=== PATIENT | male | born 1945 | race Caucasian/White ===

== ENCOUNTER → 2016-05-17 | Outpatient (CLI) | payer OTHER ==
[~2016-05-17] MED LIST: CEPH500C2 PO; CYAN100T6 PO; CYAN500S5 PO; ECHI80CA PO; MULTTAB58 PO; ZINC220C4 PO
--- NOTE | 2016-05-17 12:10 | DIAGNOSTIC IMAGING REPORT ---
CHEST 2 VIEWS ROUTINE CLINICAL HISTORY: FLU LIKE SYMPTOMS cough COMPARISON STUDY: None FINDINGS: The bones soft tissues and hemidiaphragms are normal. The cardiomediastinal silhouette is normal. The lungs are clear. The pulmonary vasculature is normal. Calcified granuloma left and to lesser extent medial right base IMPRESSION: Chronic granulomatous change. No acute process. Electronically signed by: Tree Barriga M.D. 05/17/2016 12:09 PM Dictated Date/Time: 05/17/2016 12:08 PM
== END | disposition home or self-care (01) ==
LOC: C.RADPV 11:56
PROVIDERS: ATTEND Family Medicine
DX: R68.89 Other general symptoms and signs (principal); R50.9 Fever, unspecified

== ENCOUNTER 2016-11-07 19:54 | Emergency (ER) | payer OTHER ==
[~2016-11-07] VITALS: Ht 182.9 cm; Wt 92.1 kg
[~2016-11-07 19:54] MED LIST changes: -CEPH500C2 PO; -CYAN500S5 PO; -ECHI80CA PO
[2016-11-07 20:06] VITALS: TEMP 37; Ht 182.9 cm; Wt 92.1 kg
[2016-11-07] MEDS ORDERED: XYLOCAINE 1%/SOD BICARB 20 ML VIAL INFIL ONE (20:30)
--- NOTE | 2016-11-07 21:32 | DIAGNOSTIC IMAGING REPORT ---
LEFT HAND MIN 3 VIEWS ROUTINE CLINICAL HISTORY: L finger injury COMPARISON: None. DISCUSSION: There is a comminuted fracture involving the distal phalanx of the third/middle finger. There is an overlying soft tissue injury. Degenerative changes are present within the wrist. There is mild widening of the scapholunate distance. There is mild fragmentation of the proximal carpal row as visualized in the lateral projection. Degenerative changes are also present within the hand most pronounced the level of the distal interphalangeal joints. There is a small erosion involving the middle phalanx of the fifth finger. IMPRESSION: Comminuted fracture involving the mid to distal aspect of the distal phalanx the third finger. There is an overlying soft tissue injury. Electronically signed by: Taye Gutierrez M.D. 11/07/2016 9:30 PM Dictated Date/Time: 11/07/2016 9:28 PM
--- NOTE | 2016-11-07 21:44 | EMERGENCY ROOM VISIT NOTE ---
ED Visit Note First contact with patient: 20:25 I have personally seen and evaluated the patient with the physician assistant city attorney. I agree with the diagnostic/management decisions and have personally been involved in these decisions and agree with the diagnosis.
[2016-11-07] MEDS ORDERED: CEFAZOLIN IV 1,000 MG in DEXTROSE 5% 50ML 50 ML IV ONE (21:45)
[2016-11-07] MEDS ORDERED: DIPHTHERIA/TETANUS/PERTUSSIS 0.5 ML SYR/VIAL IM. ONE (22:00)
[2016-11-07] MEDS ORDERED: ECHI80CA PO (22:28)
[2016-11-07] MEDS ORDERED: CYAN500S5 PO (22:28)
--- NOTE | 2016-11-07 23:24 | Medical Consult ---
Consultation Date of Consultation: Nov 07, 2016. Attending Physician: Reason for Consultation: Left middle finger open tuft fracture. 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 Contacted by the ER to evaluate and treat his open Left Middle finger Tuft fracture. X-rays were taken, he was started on antibiotics, and given tetanus booster. He denies numbness or tingling. Past Medical/Surgical History PMHx: Rib fractures, Hernia. PSHx: Butt Cyst removal, L CTR Social History Smoking Status: Never Smoker Smokeless Tobacco Use: No Alcohol Use: none Marital Status: Housing Status: lives with family Occupation Status: employed ([employer]) Allergies Coded Allergies: Prednisone (Verified Allergy, Intermediate, Becomes agitated, 11/07/16) Review of Systems Constitutional: No fever, No chills, No sweats, No weight loss, No weakness, No fatigue, No problem reported Eyes: No worsening of vision, No eye pain, No redness, No discharge, No diplopia, No problem reported ENT: No hearing loss, No unusual epistaxis, No nasal symptoms, No sore throat, No tinnitus, No dental problems, No trouble swallowing, No problem reported Respiratory: No cough, No sputum, No wheezing, No shortness of breath, No dyspnea on exertion, No dyspnea at rest, No hemoptysis, No problem reported Cardiovascular: No chest pain, No orthopnea, No PND, No edema, No claudication , No palpitations, No problem reported Abdomen: No pain, No nausea, No vomiting, No diarrhea, No constipation, No GI bleeding, No problem reported Musculoskeletal: + problem reported (L MF injury) Genitourinary - Male: No hematuria, No dysuria, No urinary frequency, No urinary urgency, No urinary hesitancy, No urinary retention, No urinary incontinence, No penile discharge, No lesions, No impotence, No problem reported Neurologic: No memory loss, No paralysis, No weakness, No numbness/tingling, No vertigo, No balance problems, No problem reported Psychiatric: No depression symptoms, No anhedonism, No anxiety, No insomnia, No substance abuse, No problem reported Endocrine: No fatigue, No excessive thirst, No excessive urination, No problem reported Integumentary: No rash, No itch, No new/changing skin lesions, No color change , No bleeding, No problem reported Allergic / Immunologic: No environmental allergies, No seasonal allergies, No pet sensitivities, No food allergies, No hives, No frequent infections, No poor healing, No prolonged convalescence, No problem reported Physical Exam Date Time Temp Pulse Resp B/P (MAP) Pulse Ox O2 Delivery O2 Flow Rate FiO2 11/07/16 22:00 70 20 169/95 96 Room Air 11/07/16 21:01 74 18 163/139 94 Room Air 11/07/16 20:06 37.0 75 18 180/98 95 Room Air General Appearance: WD/WN, no apparent distress Extremities/Musculoskelatal: + pertinent finding (L MF: laceration of LM with near loss of the nail, hanging at the tip. BCR < 2 sec. sensation to LT intact. FDS, FDP, extension intact. Nail bed lacerationnear the nail matrix with some loss of skin and nail bed.) Laboratory Results RADIOGRAPHS: 3 views of the L hand, show a comminuted, minimally displaced L MF distal phalanx fracture. Assessment & Plan L MF comminuted, minimally displaced, open, distal phalanx fracture, initial emergency room visit. After a lengthy discussion with the patient regarding my above findings, due to the open fracture, I recommended continued antibiotics and an I&D of the L MF and repair. The risks of the procedure as well as the benefits were discussed. He wished to proceed with the procedure. He may use Tylenol alternating with Advil as needed for pain. He will ice, elevate, maintain in splint, and keep clean and dry. He will follow up in my office in 4-7 days. Call [phone] for appointment.
--- NOTE | 2016-11-07 23:29 | [facility] Operative Report ---
Operative Report Operative Date Nov 07, 2016. Pre-Operative Diagnosis Left Middle Finger Open Tuft Fracture Post-Operative Diagnosis Same + Nailbed laceration Procedure(s) Performed 1) Nail Bed repair. 2) Closed treatment L MF P3 fx. 3) Irrigataion and debridement L MF. Surgeon Skyler Bentley MD Union Representative Surgeon(s) Ozzy Olivares PA-C (No fellow avail). Estimated Blood Loss 5 Findings Minimally displaced, comminuted, open distal phalanx fracture L MF, with Nailbed laceration near the nail matrix, with loss of some of the nailbed. Drains n/a Anesthesia Digital block Complication(s) None Disposition ER D3 Indications The patient sustained a traumatic injury to the left middle finger resulting in an open tuft fracture. The patient understands the risks of procedure, which include but are not limited to: bleeding, infection, re-operation, damage to nerves and arteries, continued pain, malunion, nonunion, need for additional surgery, nailbed deformity versus out right loss. The patient understands all of these instructions and explanations, all of their questions have been satisfactorily addressed. The patient has wished to proceed with procedure. Description of Procedure With the patient remaining in the emergency room, and after performing a time- out identifying the left middle finger to undergo the procedure; the left middle finger underwent a digital block under sterile fashion with 1% lidocaine plain using 7 cc. Once this had taken appropriate affect, the hand was cleaned with Hibiclens scrub brush. The dorsal wound to the left middle finger was copiously irrigated with combination of Betadine and normal saline initially followed by over 1 L of normal saline. The nail was removed and there was a noted laceration of the nailbed with some loss of tissue. The nailbed was repaired with 4-0 chromic sutures. The small laceration over the ulnar aspect was also closed with 4-0 chromic. A false nail was placed overtop using the foil from the chromic packaging and was held in place with 2 sutures proximally and one centrally distally again using the 4-0 chromic. The hand was cleaned and dried. Xeroform was placed over top of the wound followed by 4 x 4 and 1 inch Jarred. An AlumaFoam splint was then placed over top and held in place with Coban. Postop Instructions: Patient will ice and elevate and avoid any heavy lifting as well as any dirty situations. He will follow-up in 4-7 days for reevaluation. He will continue with the Keflex for one week. He understood all my instructions and expirations all his questions were satisfactorily addressed. I attest to the content of the Intraoperative Record and any orders documented therein. Any exceptions are noted below.
[2016-11-07] MEDS ORDERED: CEPHALEXIN 500MG HOME PACK 1 EA BTL PO ONE (23:30)
[2016-11-07] MEDS ORDERED: CEPH500C2 PO (23:32)
[2016-11-07 23:39] VITALS: BP 160/87; PULSE 84; O2SAT 98
--- NOTE | 2016-11-08 03:00 | EMERGENCY ROOM VISIT NOTE ---
ED Visit Note First contact with patient: 20:25 Chief Complaint: I cut my left middle finger. History of Present Illness: Mr. Olsen is a 8-year-old white male who ambulates into the ED accompanied by his complaining of a left middle finger laceration. Patient is left-handed. Patient and report approximately 45 minutes ago he was greasing a investigative assistant when his middle finger got caught in the chain and was injured. He has not treated his injury prior to arrival at the hospital. Currently he is complaining of a throbbing and achy pain to the distal middle finger. He rates his discomfort 5/10. His pain is nonradiating. His pain worsens with palpation of the distal finger and his soft tissue injury. He has not identified any alleviating factors related to the pain. He reports she has not taken medication for pain prior to arrival at the hospital. He denies any associated symptoms including other hand pain, other finger pain, finger weakness/numbness/tingling. He also denies any previous significant injuries or surgeries to this area. Review of Systems: As noted above in history of present illness. Past Medical History: Status post carpal tunnel release and hernia repair. Current Medications: Multivitamins, zinc. Allergies to Medications: Prednisone. Social History: Patient is not employed; he lives with his and feels safe in his home environment; he denies tobacco and alcohol use. Tetanus Immunization Status: Patient was unsure but thought it was greater than 10 years. Physical Examination: Vital Signs: Date Time Temp Pulse Resp B/P (MAP) Pulse Ox O2 Delivery O2 Flow Rate FiO2 11/07/16 23:39 84 20 160/87 98 11/07/16 22:00 70 20 169/95 96 Room Air 11/07/16 21:01 74 18 163/139 94 Room Air 11/07/16 20:06 37.0 75 18 180/98 95 Room Air GENERAL: 71-year-old male in mild distress due to pain, nontoxic-appearing, afebrile and hemodynamically stable. NEUROLOGICAL: Awake, alert and oriented to person, place and time. Answering questions appropriately and following commands. SKIN: Warm, dry and pink. Left Middle Finger: 3-4 cm full-thickness laceration over the posterior aspect of the distal phalanx. Additionally the nail was partially avulsed and the skin is rotated laterally. LEFT MIDDLE FINGER: Obvious deformity of the distal phalanx. No tenderness over the MCP or PIP joints. Tenderness over the DIP joint and his lacerated area. Throughout the distal finger the skin was warm and pink and capillary refill is brisk. He was able to distinguish light sensations through all dermatomes of the finger. ED Course: Patient is assessed as noted above. Since medication list was reviewed. Left Hand X-Rays: Were read by myself and the radiologist showing a comminuted fracture involving the mid to distal aspect of the distal phalanx of the middle finger. Patient was offered pain medications and refused. IV lock was initiated and patient was given 1 g of Ancef IV and Adacel booster IM. Patient's case was reviewed with Dr. Sierra; independently assessed the patient we agreed on diagnostic approach, treatment, disposition and plan. Patient's case was consulted with Dr. Bentley, [facility]; Dr. Bentley came into the ED evaluated the patient and repaired his injuries. Please see his notes. Patient was educated about today's findings and instructed on his treatment plan ; he verbalizes understanding and agreement with this plan. Clinical Impression: Open comminuted fracture of the left distal phalanx. Disposition: Patient discharged home in stable condition; prior to departure he was reassessed and subjectively reported he was feeling much better and repeat pain pain-free. Plan: At Dr. Bentley's request I wrote his discharge instructions. Comfort measures, wound care and signs of infection were discussed with the patient. Patient was prescribed Keflex 500 mg 4 times a day for 10 days. Patient was encouraged to contact Dr. Locke's office tomorrow morning and request follow-up care and treatment for 4 days. Patient was encouraged to return to the ED for any signs of infection or any new /concerning symptoms.
== END 2016-11-07 23:40 | disposition home or self-care (01) ==
LOC: C.EDB 19:54 → C.EDD 23:40
DX: S62.633B Displaced fracture of distal phalanx of left middle finger, initial encounter for open fracture (principal); S61.313A Laceration without foreign body of left middle finger with damage to nail, initial encounter; W23.0XXA Caught, crushed, jammed, or pinched between moving objects, initial encounter; Z23 Encounter for immunization

== ENCOUNTER 2018-10-23 04:51 | Inpatient (IN) ==
--- NOTE | 2018-10-05 08:39 | Anesthesiology Consultation ---
Date of Service October 05, 2018 Assessment & Plan (1) Encounter for pre-operative examination: Cardiology 10/11/18 = "Mr. Olsen is an acceptable cardiac risk for surgery." Chart Review Chart Review: Acceptable Risk for Surgery and Patient seen in Pre Admission Testing Teaching & Discussion Instructed NPO after midnight before surgery, except medications with 15 cc of water. Medication instructions provided according to the PAT guidelines. History Surgery Operation Date: 10/23/18 10:40 Proposed Procedures p Left Total Hip Replacement - Venkata Delacruz MD Height/Weight Height: 6 ft Weight: 91.4 kg Allergies Allergy/AdvReac Type Severity Reaction Status Date / Time prednisone AdvReac Unknown Becomes Verified 09/28/18 08:33 agitated Medications Home Medications Medication Instructions Recorded Confirmed Last Taken lisinopril 20 mg tablet 20 mg PO QAM #90 tab 09/05/18 09/28/18 09/28/18 C,E,zinc,copper [id number] 1 cap PO DAILY 09/28/18 09/28/18 Unknown [Ocuvite Adult 50 Plus] cyanocobalamin (vitamin B-12) 2,500 mcg SUBLINGUAL DAILY 09/28/18 09/28/18 Unknown [Vitamin B-12] metoprolol succinate 100 mg PO UD 09/28/18 09/28/18 Unknown multivitamin 1 cap PO DAILY 09/28/18 09/28/18 Unknown Past Medical History Medical History Bradycardia Drug-induced per PCP -- metoprolol was recently increased to 100mg, but then HR was 35 at PCP office 09/26, now decreased to 50mg only to be given if HR >50. Per pt's , HR has only been over 50 once since then. HR 45 at PAT appt. Pt asymptomatic. Hypertension RECENT DX Left bundle-branch block Noted at PCP office 06/2018, prompted cardiac workup. Nonischemic cardiomyopathy Poor short term memory RECENT PROBLEM..DISCUSSED WITH PCP Systolic heart failure EF 40% on echo 07/09/18 Exercise / Class Metabolic Activity II 4-5 Yardwork/Stairs/Walk up hill (Denies CP or SOB with 1 FOS, does daily) Past Surgical History Surgical History History of back surgery Discectomy/laminectomy, pt denies hardware History of carpal tunnel surgery of left wrist History of excision of pilonidal cyst Past Anesthesia History Other "DAUGHTERS HAD HARD TIME WAKING UP FROM ANESTHESIA WITH WISDOM TEETH" RECALLS THAT WITH BACK SURGERY ([facility] 35 YRS AGO) - NURSES TOLD HER THEY HAD TO KEEP TELLING THE PATIENT TO BREATHE. UNSURE IF REINTUBATION; NO ICU. NO FURTHER DETAILS. History of PONV No Hx of PONV and No Hx of Motion Sickness Social History Smoking Status: Never smoker Do You Dip or Chew Tobacco: No Hx Alcohol Use: No Hx Substance Use: No substance use type: does not use Review of Systems Pt denies any recent chest pain, shortness of breath, palpitations, cough, fever or URI. Physical Exam Vital Signs BP: 147/74 P: 45bpm (asymptomatic) SPO2: 97% RA T: 98.1 F R: 16 ENMT Mouth: + dentures (full upper) and + chipped teeth (B/L broken last biscuspid) Thyromental Distance: > or= 3.5 Finger Breadths (4) Mallampati Class: II Missing all bottom molars Neck normal visual inspection and + facial hair (trimmed mustache); neck extension not limited Respiratory normal respiratory effort Auscultation: lungs clear to auscultation bilaterally Cardiovascular Rate/Rhythm: regular rhythm and + bradycardic Heart Sounds: no murmur Vessels: no carotid bruit Extremities: no edema Testing Laboratory Results 10/05/18 10:30 10/05/18 10:30 PT 10.4 Seconds (9.0-12.0) 10/05/18 10:30 INR 1.0 (0.9-1.1) 10/05/18 10:30 APTT 26.7 Seconds (21.0-31.0) 10/05/18 10:30 Blood Type A Positive 10/05/18 10:30 Antibody Screen NEGATIVE 10/05/18 10:30 Electrocardiogram Date: 09/26/18 Findings: + SB @ (35bpm) Left axis deviation. LBBB. *prompted cardiac workup via PCP. HR 45 at PAT, patient asymptomatic. Chest X-Ray Date: 10/05/18 FINDINGS: Stable calcified granuloma within the left lung base. No pleural effusions. No pneumothorax. The heart is normal in size. IMPRESSION: No acute process. Echocardiogram Date: 07/09/18 EF: 40% LVEF is mildly decreased. There is mild global HK of the LV. Mild mitral regurgitation. Stress Test Date: 07/26/18 Resting EF: 46% Impression: 1. Myocardial perfusion negative for ischemic changes. 2. Large fixed defect possibly secondary to LBBB artifact, but cannot exclude infarct. 3. Hypokinesis of the septal wall segments, possibly due to LBBB. 4. Mildly reduced left ventricular systolic function. EF 46%. 5. Indeterminate Lexiscan ECG.
--- NOTE | 2018-10-05 08:41 | PAT Medication Instructions ---
Medication Instructions Date of Service October 05, 2018 Home Medications lisinopril 20 mg tablet 20 mg PO QAM [Ocuvite Adult 50 Plus] 1 cap PO DAILY cyanocobalamin (vitamin B-12) 2,500 mcg SUBLINGUAL DAILY metoprolol succinate 100 mg PO UD multivitamin 1 cap PO DAILY STOP taking 2 weeks before surgery If surgery is within 2 weeks, stop taking as soon as possible. [Ocuvite Adult 50 Plus] 1 cap PO DAILY DO NOT take the morning of surgery lisinopril 20 mg tablet 20 mg PO QAM cyanocobalamin (vitamin B-12) 2,500 mcg SUBLINGUAL DAILY multivitamin 1 cap PO DAILY Take morning of surgery With a small sip of water, OTHERWISE NOTHING TO EAT OR DRINK AFTER MIDNIGHT: metoprolol succinate 100 mg PO UD (if HR over 50bpm) Other Notes If you have any questions please call us at [phone] or [phone] or [phone] or [phone]
--- NOTE | 2018-10-05 11:14 | XRay Report ---
XR chest Pre-admission PA/Lat HISTORY: Preop. COMPARISON: Chest 05/17/2016. FINDINGS: Stable calcified granuloma within the left lung base. No pleural effusions. No pneumothorax . The heart is normal in size. IMPRESSION: No acute process. Electronically signed by: Yury Owen M.D. 10/05/2018 11:12 AM
[2018-10-05 13:06] LABS: Calcium 9.4 mg/dl (8.5-10.1); Creatinine Clr Calc Pharmacy 77.1 ml/min; Est GFR (African American) 92.3; Est GFR (Non-African American) 79.7; Potassium 4.9 mmol/L (3.5-5.1)
[2018-10-05 13:12] LABS: Basophils # (auto) 0.02 K/uL (0-0.2); Basophils % (auto) 0.2 %; Eosinophils # (auto) 0.36 K/uL (0-0.5); Eosinophils % (auto) 4.3 %; Hematocrit (blood only) 44.2 % (42-52); Hemoglobin 15.3 g/dL (14.0-18.0); Immature Granulocytes # (auto) 0.01 K/uL (0.00-0.02); Immature Granulocytes % (auto) 0.1 %; Lymphocytes # (auto) 2.25 K/uL (1.2-3.4); Lymphocytes % (auto) 26.7 %; Mean Corpuscular Hgb Conc 34.6 g/dL (32-36); Mean Corpuscular Volume 87.9 fL (80-100); Mean Platelet Volume 11.1 fL (7.4-10.4); Monocytes # (auto) 0.88 K/uL (0.11-0.59); Monocytes % (auto) 10.4 %; Neutrophils # (auto) 4.91 K/uL (1.4-6.5); Neutrophils % (auto) 58.3 %; Platelet Count 206 K/uL (130-400); RDW Coefficient of Variation 12.7 % (11.5-14.5); RDW Standard Deviation 40.3 fL (36.4-46.3); Red Blood Count 5.03 M/uL (4.7-6.1); White Blood Count 8.43 K/uL (4.8-10.8)
[2018-10-05 13:22] LABS: Partial Thromboplastin Time 26.7 Seconds (21.0-31.0); Prothrombin Time 10.4 Seconds (9.0-12.0)
--- NOTE | 2018-10-13 12:24 | History and Physical Report ---
DATE OF ADMISSION: 10/23/2018 CHIEF COMPLAINT: Left hip pain. HISTORY OF PRESENT ILLNESS: This is a 73-year-old male morillo who presents for surgical treatment from my partner Dr. Baez. He has about a year and half history of increasing left hip pain and discomfort. It has gradually gotten worse over time. He used to be pretty active, but has become much less active over the past year due to his hip pain. He describes groin and thigh pain. It radiates down to his knee, but no further. No numbness or radicular symptoms. He limps pretty much all the time and more as the day goes on. He would like to proceed with surgical treatment. He has had some recent issues with memory loss. PAST MEDICAL HISTORY: 1. Short term memory loss. 2. Hypertension. 3. Left bundle branch block. PAST SURGICAL HISTORY: Previous surgeries include: 1. Back surgery. 2. Carpal tunnel release. 3. Pilonidal cyst removal. ALLERGIES: PENTOTHAL. CURRENT MEDICINES: Includes: 1. Lisinopril 20 mg a day. 2. Metoprolol once a day. 3. Vitamin B12. 4. Multivitamin. 5. I-vitamin. SOCIAL HISTORY: A 73-year-old male. He is . Morillo by nature. No significant alcohol or tobacco use. REVIEW OF SYSTEMS: Negative for diabetes, neurologic problems, vascular problems, bleeding disorders. No chest pain or shortness of breath. No history of DVT or PE. PHYSICAL EXAMINATION: GENERAL: He is a pleasant, healthy appearing elderly male. HEENT: Benign. NECK: Supple. No lymphadenopathy. LUNGS: Clear to auscultation. HEART: Regular rate and rhythm. ABDOMEN: Soft, nontender, nondistended. EXTREMITIES: Grossly neurovascularly intact except as follows. Examination of left hip and leg reveals the patient walks with minimal limp. Leg lengths clinically appear pretty equal. His hip is quite stiff. He can internally rotate to neutral at best. This does cause pain. Negative straight leg raise. No pain with knee motion. X-RAYS: X-rays of the left hip reviewed. It shows advanced left hip DJD. He has got complete loss of his joint space. He has cystic change of the femoral head and acetabulum. The right hip shows less severe significant arthritis. ASSESSMENT: A 73-year-old male morillo with bilateral hip degenerative joint disease, left side more symptomatic than the right. He does have some recent memory loss issues, but trying to manage this. He is markedly debilitated by his hip pain. PLAN: We talked about treatment. He really would like to have his left hip fixed. The risks and benefits of left total hip replacement were explained to the patient including but not limited to DVT, PE, , infection, neurological injury, vascular injury, bleeding problem, pain, limited range of motion, stiffness, failure to relieve symptoms, incomplete relief of symptoms, need for further surgery in future, fracture, leg length inequality, nerve palsy, etc. The patient understands and desires to proceed. Informed consent was obtained. We did talk to him about taking his metoprolol on the morning of surgery and holding lisinopril. There has been some discussion whether to go to rehab or to home and I think it would be best if he can go home as long as they can manage him in a familiar environment. We will see how he does in the acute postoperative period in the hospital.
[2018-10-23] MEDS ORDERED: TRANEXAMIC ACID 1,000 MG **IV Pre-op IV SCH (06:00)
[2018-10-23] MEDS ORDERED: LR 60ML/HR IV SCH (06:00)
[2018-10-23] MEDS ORDERED: ACETAMINOPHEN 500 MG TAB PO SCH (06:00)
[2018-10-23] MEDS ORDERED: FAMOTIDINE 20 MG TAB PO SCH (06:00)
[2018-10-23] MEDS ORDERED: CEFAZOLIN 2000MG 2,000 MG/15 ML SYR IV SCH (06:00)
[2018-10-23] MEDS ORDERED: LR 500ML BOLUS, THEN 15ML/HR IV SCH (06:00)
[2018-10-23] MEDS ORDERED: GABAPENTIN 300 MG CAP PO SCH (06:00)
[2018-10-23] MEDS ORDERED: METOCLOPRAMIDE HCL 10 MG TABLET PO SCH (06:00)
[2018-10-23] MEDS ORDERED: BUPIVACAINE 0.5 % 5 MG/1 ML PF 10ML VIAL ONE (06:26)
[2018-10-23] MEDS ORDERED: BUPIVACAINE/EPINEPHRINE 0.5% MPF 1:200,000 30 ML VIAL ONE (06:29)
[2018-10-23] MEDS ORDERED: BACITRACIN INJ 50,000 UNIT VIAL ONE (06:29)
[2018-10-23] MEDS ORDERED: MIDAZOLAM HCL 1 MG/ML 2ML VIAL ONE ×2 (06:30→07:41)
[2018-10-23] MEDS ORDERED: fentaNYL citrate 100 MCG/2 ML VIAL ONE (06:30)
[2018-10-23] MEDS ORDERED: MoRPHine SULFATE PF 1 MG/ML 10 ML AMP/VIAL ONE (06:39)
[2018-10-23] MEDS ORDERED: ePHEDrine sulfate 50 MG/ML AMP IV PRN ×2 (06:46→06:55)
[2018-10-23] MEDS ORDERED: fentaNYL citrate 100 MCG/2 ML VIAL IV PRN (06:46)
[2018-10-23] MEDS ORDERED: ATROPINE SULFATE 0.1 MG/ML 10ML SYR IV PRN (06:46)
[2018-10-23] MEDS ORDERED: ONDANSETRON INJ 2 MG/ML 2 ML VIAL IV PRN ×3 (06:46→10:18)
--- NOTE | 2018-10-23 06:48 | History & Physical Bridge Note ---
Date of Service October 23, 2018 History & Physical Bridge Note I have examined the patient, reviewed the History & Physical and in the interval since the performance of the History & Physical I have noted the following changes of clinical significance: no changes noted
[2018-10-23] MEDS ORDERED: NALOXONE HCL 0.08 MG in SYRINGE 1.8 ML IV PRN (06:55)
[2018-10-23] MEDS ORDERED: NALBUPHINE HCL INJ 10 MG/ML AMP IV PRN (06:55)
[2018-10-23] MEDS ORDERED: NALOXONE HCL 0.4 MG/1 ML VIAL/CARP IV PRN ×2 (06:55→10:18)
[2018-10-23] MEDS ORDERED: LACTATED RINGER'S 500 ML IV PRN (06:55)
[2018-10-23] MEDS ORDERED: NALOXONE HCL 1 MG in SODIUM CHLORIDE 0.9% 1000ML 1,000 ML IV PRN (06:55)
[2018-10-23] MEDS ORDERED: KETOROLAC TROMETHAMINE 15 MG/ML VIAL IV PRN (06:55)
[2018-10-23] MEDS ORDERED: MoRPHine SULFATE PF 1 MG/ML 10 ML AMP/VIAL INT SPINAL ONE (06:55)
[2018-10-23] MEDS ORDERED: PROMETHAZINE HCL 6.25 MG in SODIUM CHLORIDE 0.9% 50 ML IV PRN (06:55)
[2018-10-23] MEDS ORDERED: MEPERIDINE HCL 25 MG/ML CARP IV PRN (06:55)
[2018-10-23] MEDS ORDERED: MoRPHine SULFATE 2 MG/ML CARP IV PRN (06:55)
[2018-10-23] MEDS ORDERED: DiphenhydrAMINE HCL 50 MG/ML VIAL IV PRN (06:55)
[2018-10-23] MEDS ORDERED: HYDROmorphone INJ 0.5 MG/0.5 ML SYR IV PRN (06:55)
[2018-10-23] MEDS ORDERED: DC INTRASPINAL MORPHINE SCH (07:00)
[2018-10-23] MEDS ORDERED: NO NARCOTICS OR SEDATIVES SCH (07:00)
[2018-10-23] MEDS ORDERED: SODIUM CHLORIDE 0.9% 1000ML 1,000 ML IV SCH (07:00)
[2018-10-23] MEDS ORDERED: ePHEDrine sulfate 50 MG/ML AMP ONE (07:15)
--- NOTE | 2018-10-23 08:44 | Post Operative Brief Note ---
Immediate Post Op Note v1 Date of Surgery October 23, 2018 Pre & Post Diagnosis Operation Date: 10/23/18 07:00 Pre-Op Diagnosis: Left Hip Degenerative Joint Disease Post-Op Diagnosis: Left Hip Degenerative Joint Disease Procedure Operation Date: 10/23/18 07:00 Actual Procedures p Left Total Hip Arthroplasty, Uncemented(Left) - Venkata Delacruz MD Surgeon Venkata Delacruz MD Customs Manager Hal Love, PAC Estimated Blood Loss 200 Findings Consistent with Post-Op Diagnosis Fluids 600 cc Specimens Left Femoral Head Anesthesia Type Spinal MAC Complications none Disposition Accompanied Patient To Recovery: Yes Disposition: Recovery Room
--- NOTE | 2018-10-23 09:30 | Operative Report ---
DATE OF OPERATION: 10/23/2018 SURGEON: Venkata Delacruz MD RESPIRATORY THERAPY ASSISTANT: Alok Love PA-C PREOPERATIVE DIAGNOSIS: Left hip degenerative joint disease. POSTOPERATIVE DIAGNOSIS: Left hip degenerative joint disease. PROCEDURE PERFORMED: Left uncemented ceramic on highly cross-linked polyethylene total hip arthroplasty. COMPLICATIONS: None. ESTIMATED BLOOD LOSS: 200 mL. FLUID REPLACEMENT: 1600 mL of crystalloid fluid replacement. ANESTHESIA: Spinal. DRAINS: None. SPECIMENS: Left femoral head sent for pathology. OPERATIVE INDICATIONS: The patient is a 73-year-old gibbs who has had about a year and half history of progressively increasing left hip pain and discomfort that has gotten more debilitating over time. He failed conservative care. X-rays revealed advanced left hip DJD. He elected to proceed with total hip arthroplasty. OPERATIVE FINDINGS: Operative findings revealed advanced left hip DJD. He had grade 4 [id number] disease of the femoral head and acetabulum. Moderate size joint effusion. Moderate size medial osteophyte. OPERATIVE IMPLANTS: Operative implants consisted of: 1. A Biomet G7 size 58-mm acetabular shell. 2. 6.5 cancellous acetabular screws, 1 at 35 mm in length and 1 at 25 mm in length. 3. An apex hole eliminator. 4. A highly cross-linked polyethylene liner with a 58 mm outer diameter and 40 mm inner diameter with dyson placed inferior and posterior. 5. A DePuy Corail size 11 KLA femoral stem. 6. A +8.5/36 mm ceramic articular ball. OPERATIVE PROCEDURE: The patient was taken to the operating room, identified and placed on the operating table in supine position. All contact areas were appropriately padded. IV antibiotics provided by anesthesia team. Spinal anesthetic had been implemented in the holding area. Benoit catheter was placed in sterile fashion. The patient was then placed in the right lateral decubitus position. An axillary roll was placed. Stlberg hip positioner was used for positioning. The left hip and leg were then prepped and draped in the usual sterile fashion. A posterolateral approach to the left hip was then performed through a curvilinear incision centered over the greater trochanter. Sharp dissection was carried through subcutaneous tissue down to the level of the IT band and gluteal fascia. The IT band and gluteal fascia was incised longitudinally in line with skin incision. The underlying greater trochanteric bursa was excised. The piriformis and external rotators were tagged and taken off the posterior aspect of the hip joint capsule. Great care was taken throughout the procedure to protect the sciatic nerve at all times. Posterior capsulotomy was then performed leaving a large flap for later repair. The hip was internally rotated and dislocated. Femoral neck osteotomy cut was made with the final cut about 5 mm above the lesser trochanter. Femoral head was removed and sent for pathology. The femur was retracted anteriorly. Attention was then drawn to the acetabulum. The acetabulum labrum was excised. The pulvinar fat was excised. Sequential reaming of the acetabulum was then performed beginning with a size 49 progressing up to 57. I did ream a little bit with a 58 due to his ulnar bone. I then placed a 58 mm Biomet G7 acetabular shell in about 40 degrees of lateral opening and 20 degrees of anteversion. It was fixed with two 6.5 cancellous acetabular screws. A trial liner was placed. Attention was then drawn to the femur. The proximal femur was entered with a cookie cutter followed by canal finder. I then broached beginning with a size 8 and progressing up to 11. We got really good fit at 11. We used a calcar reamer to smooth off the calcar. I then trialed the hip. The hip was fully stable, but I really wanted to maximize his stability due to issues with recent short term memory loss. We eventually placed a +8.5/48 mm head to maximize stability and also placed a dyson inferior and posterior to maximize his stability in flexion. Doing this, we had equal leg lengths and appropriate soft tissue tension. His hip was fully stable in full extension and external rotation and flexion to 90 degrees and internal rotation to over [address] I elected to place these implants. All trial implants were removed. An apex hole eliminator was placed. A highly cross-linked polyethylene liner with dyson placed inferior and posterior were placed. A DePuy Corail size 11 KLA femoral stem was impacted in position. A +8.5/36 mm ceramic articular ball was placed. Hip was located, once again found to be stable. Attention was then drawn toward closing. The wound was irrigated with copious amounts of pulsatile lavage solution. I did inject locally with 60 mL of 0.5% Marcaine with epinephrine. The posterior capsule and external rotators were then repaired through drill holes in the posterior trochanter with #2 Ti-Cron suture. The IT band and gluteal fascia were then closed with #1 PDS suture in running fashion. Subcutaneous tissue was then closed with #2 Dexon suture in a buried interrupted fashion. Skin was then closed with skin brandon. Leg was then cleaned, dried and a sterile dressing of Xeroform, 4 x 4, sterile ABD pad and foam tape was applied. The patient was then transferred to the recovery room in stable condition. The patient tolerated the procedure well with no complication. All needle and sponge counts were correct at the end of the operation. I attest to the content of the Intraoperative Record and any orders documented therein. Any exception s are noted below.
--- NOTE | 2018-10-23 09:31 | XRay Report ---
XR hip 1V LT w pelvis HISTORY: 73 years-old Male IN PACU - A/P PELVIS and LATERAL HIP left hip total joint arthroplasty. History of degenerative joint disease COMPARISON: Left hip radiographs 10/11/2018 TECHNIQUE: Supine AP view of the pelvis with crosstable lateral view of the left hip FINDINGS: Left hip total joint arthroplasty demonstrates satisfactory alignment. No retained foreign body, acut e fracture or malalignment identified. Lateral skin brandon are noted with expected postsurgical soft tissue swelling and deep tissue air. Moderate to severe right hip osteoarthritis. No avascular necro sis. IMPRESSION: Satisfactory alignment of the left hip total joint arthroplasty. The above report was generated using voice recognition software. It may contain grammatical, syntax o r spelling errors. Electronically signed by: Mika Modi M.D. 10/23/2018 9:29 AM
--- NOTE | 2018-10-23 10:01 | Anesthesiology Progress Note ---
Date of Service October 23, 2018 Anesthesia Post Procedure Vital Signs Vital Signs: Temp Pulse Pulse Resp BP Pulse Ox 10/23/18 09:40 36.9 C 45 L 16 143/75 H 97 10/23/18 09:30 36.9 C 46 L 17 140/74 98 10/23/18 09:20 36.4 C L 48 L 14 135/67 97 10/23/18 09:10 36.4 C L 48 L 14 135/67 97 10/23/18 09:00 36.4 C L 53 L 13 137/75 91 10/23/18 08:50 36.4 C L 52 L 17 130/83 94 10/23/18 08:44 36.4 C L 52 L 14 138/79 97 10/23/18 05:31 37 C 56 L 20 179/99 H 97 Transfer of Care Handoff Completed per policy Notes Mental Status: alert / awake / arousable Patient Amnestic to Procedure: Yes Nausea / Vomiting: adequately controlled Pain: adequately controlled Airway Patency, RR, SpO2: stable & adequate BP & HR: stable & adequate Hydration State: stable & adequate Neuraxial Anesthesia: was administered and sensory block is resolving Anesthetic Complications: no major complications apparent
[2018-10-23] MEDS ORDERED: MULTIVITAMIN TAB PO SCH (10:18)
[2018-10-23] MEDS ORDERED: TAMSULOSIN HCL 0.4 MG CAP PO PRN (10:18)
[2018-10-23] MEDS ORDERED: ALUMINUM/MAGNESIUM SUSP 30 ML UDC PO PRN (10:18)
[2018-10-23] MEDS ORDERED: METOCLOPRAMIDE HCL INJ 5 MG/ML 2 ML VIAL IV PRN (10:18)
[2018-10-23] MEDS ORDERED: MAGNESIUM HYDROXIDE SUSP 30 ML UDC PO PRN (10:18)
[2018-10-23] MEDS ORDERED: NON-FORMULARY MEDICATION (Multivitamin 1 CAP) PO SCH (10:18)
[2018-10-23] MEDS ORDERED: BISACODYL 10 MG SUPP PR PRN (10:18)
[2018-10-23] MEDS: DOCUSATE SODIUM 100 MG CAP PO SCH ×2 (11:53→21:22)
[2018-10-23] MEDS: ASPIRIN 81 MG ECTAB PO SCH ×2 (11:53→21:22)
[2018-10-23] MEDS: CYANOCOBALAMIN (VITAMIN B-12) 2,500 MCG TAB.SUBL SL SCH (11:54)
[2018-10-23] MEDS: LISINOPRIL 20 MG TAB PO SCH (11:54)
[2018-10-23] MEDS: KETOROLAC TROMETHAMINE 15 MG/ML VIAL IV SCH ×3 (12:18→23:35)
[2018-10-23] MEDS: SODIUM CHLORIDE 0.9% 1000ML 1,000 ML IV SCH ×2 (12:18→21:32)
[2018-10-23] MEDS: ACETAMINOPHEN 500 MG TAB PO SCH ×2 (13:37→21:22)
[2018-10-23] MEDS ORDERED: TRANEXAMIC ACID 1,000 MG in 0.9 % SODIUM CHLORIDE 100 ML IV SCH (14:30)
[2018-10-23] MEDS: CEFAZOLIN 2000MG 2,000 MG/15 ML SYR IV SCH ×2 (15:56→23:35)
[2018-10-23] MEDS: ASCORBIC ACID 500 MG TAB PO SCH (17:49)
[2018-10-23] MEDS: FERROUS GLUCONATE 324 MG TAB PO SCH (17:49)
[2018-10-23] MEDS: SENNA 8.6 MG TAB PO SCH (21:22)
--- NOTE | 2018-10-24 04:24 | Progress Note ---
DATE: 10/23/2018 SUBJECTIVE: A 73-year-old gentleman postop from a left hip replacement. He is doing well. Minimal pain. No chest pain or shortness of breath. Not feeling dizzy or lightheaded. Just feeling nauseated and having trouble holding food down currently. OBJECTIVE: VITAL SIGNS: Temperature is 36.7. Vital signs stable. PHYSICAL EXAMINATION: GENERAL: Shows a pleasant elderly male. He is sitting up in bed and talking to his family. Looks comfortable. LUNGS: Clear to auscultation. HEART: Regular rate and rhythm. ABDOMEN: Soft, nontender, nondistended. EXTREMITIES: Grossly neurovascularly intact except as follows: Examination of the left lower extremity reveals leg lengths to be equal. Dressing is clean, dry and intact. Thigh is soft and supple. He is neurologically intact. He can dorsiflex and plantarflex his foot appropriately. X-RAYS: X-rays of the left hip from recovery room reviewed. It shows left uncemented total hip replacement. Components looked to be in good position. No signs of problems. ASSESSMENT: A 73-year-old gibbs postop from a left hip replacement, doing well. His hip is located. His pain is controlled. He is neurologically intact. PLAN: 1. DVT prophylaxis including thigh-high TEDs, SCDs, and aspirin twice a day. 2. PT/OT. Weight bear as tolerated. Left total hip protocol. 3. Pain control, doing well with current pain regimen. 4. IV antibiotics x24 hours. 5. Disposition: He is planning to be discharged hopefully to home with some home health depending on how he does in therapy here.
[2018-10-24] MEDS: ACETAMINOPHEN 500 MG TAB PO SCH ×3 (05:00→21:24)
[2018-10-24] MEDS: KETOROLAC TROMETHAMINE 15 MG/ML VIAL IV SCH ×4 (05:01→23:53)
[2018-10-24 06:39] LABS: Basophils # (auto) 0.01 K/uL (0-0.2); Basophils % (auto) 0.1 %; Eosinophils # (auto) 0.06 K/uL (0-0.5); Eosinophils % (auto) 0.6 %; Hematocrit (blood only) 34.2 % (42-52); Hemoglobin 11.7 g/dL (14.0-18.0); Immature Granulocytes # (auto) 0.03 K/uL (0.00-0.02); Immature Granulocytes % (auto) 0.3 %; Lymphocytes # (auto) 1.18 K/uL (1.2-3.4); Lymphocytes % (auto) 11.7 %; Mean Corpuscular Hgb Conc 34.2 g/dL (32-36); Mean Corpuscular Volume 87.5 fL (80-100); Mean Platelet Volume 10.6 fL (7.4-10.4); Monocytes # (auto) 1.16 K/uL (0.11-0.59); Monocytes % (auto) 11.5 %; Neutrophils # (auto) 7.68 K/uL (1.4-6.5); Neutrophils % (auto) 75.8 %; Platelet Count 169 K/uL (130-400); RDW Coefficient of Variation 12.5 % (11.5-14.5); RDW Standard Deviation 40.1 fL (36.4-46.3); Red Blood Count 3.91 M/uL (4.7-6.1); White Blood Count 10.12 K/uL (4.8-10.8)
[2018-10-24] MEDS ORDERED: HYDROmorphone INJ 0.5 MG/0.5 ML SYR IV PRN (07:00)
[2018-10-24 07:09] LABS: BUN Creatinine Ratio 13.8 (10-20); Calcium 8.1 mg/dl (8.5-10.1); Creatinine Clr Calc Pharmacy 80.5 ml/min; Est GFR (African American) 97.2; Est GFR (Non-African American) 83.9; Potassium 3.9 mmol/L (3.5-5.1)
[2018-10-24] MEDS: TRAMADOL HCL 50 MG TABLET PO PRN (07:41)
[2018-10-24] MEDS: ASCORBIC ACID 500 MG TAB PO SCH ×2 (08:26→17:53)
[2018-10-24] MEDS: FERROUS GLUCONATE 324 MG TAB PO SCH ×2 (08:26→17:53)
[2018-10-24] MEDS: CYANOCOBALAMIN (VITAMIN B-12) 2,500 MCG TAB.SUBL SL SCH (08:27)
[2018-10-24] MEDS: ASPIRIN 81 MG ECTAB PO SCH ×2 (08:27→21:23)
[2018-10-24] MEDS: LISINOPRIL 20 MG TAB PO SCH (08:27)
[2018-10-24] MEDS: CEROVITE ADV FORMULA TAB PO SCH (08:27)
[2018-10-24] MEDS: DOCUSATE SODIUM 100 MG CAP PO SCH ×2 (08:27→21:23)
--- NOTE | 2018-10-24 18:14 | Progress Note ---
DATE: 10/24/2018 SUBJECTIVE: A 73-year-old gentleman postop day 1 from a left total hip replacement. Hip has done well. He had pretty rough night as he was a bit confused and then developed carpal tunnel symptoms which were most bothersome. Did not really respond to pain medicine. Doing better today but still a little bit confused. Does not complain of much hip pain. No chest pain or shortness of breath. Not feeling dizzy or lightheaded. OBJECTIVE: VITAL SIGNS: Temperature 37.1. Vital signs stable. PHYSICAL EXAMINATION: GENERAL: He is a pleasant elderly male. He is sitting up in bed. He is talking to his family. He is awake, alert, but still a little bit confused. EXTREMITIES: Examination of the left hip and leg reveals the dressing to be clean, dry and intact. Leg lengths are equal. Hip is located. He is neurologically intact. He can dorsiflex and plantarflex his foot appropriately. LABORATORY DATA: Hemoglobin 11.7. Hematocrit 34.2. Electrolytes are stable. ASSESSMENT: A 73-year-old gentleman with a history of some memory loss postop day 1 from left total hip replacement, doing okay. He is having some confusion which is not too surprising. His pain is controlled. It also pretty common to develop carpal tunnel syndrome after surgery when it is borderline beforehand. PLAN: 1. DVT prophylaxis including thigh-high TEDs, SCDs, and aspirin twice a day. 2. PT/OT. Weight bear as tolerated. Left total hip protocol. 3. Pain control, doing pretty well with current pain regimen. We will continue the Tylenol and Toradol. 4. Carpal tunnel syndrome. We will continue to observe this and I think this will resolve as he diureses some fluid off. 5. Disposition. I really think it would be best for this patient to be discharged home if he is doing okay and I think his familiar environment and his 's company would be most appropriate. We will see how he does overnight tonight and with therapy tomorrow.
[2018-10-24] MEDS: SENNA 8.6 MG TAB PO SCH (21:23)
[2018-10-25] MEDS: TRAMADOL HCL 50 MG TABLET PO PRN ×3 (03:30→22:03)
[2018-10-25] MEDS: ACETAMINOPHEN 500 MG TAB PO SCH ×3 (05:37→20:54)
[2018-10-25] MEDS: KETOROLAC TROMETHAMINE 15 MG/ML VIAL IV SCH (05:37)
--- NOTE | 2018-10-25 09:36 | Progress Note ---
DATE: 10/25/2018 SUBJECTIVE: A 73-year-old gentleman postop day 2 from a left hip replacement. He is doing pretty well functionally. Still having issues with some confusion, did not sleep much last night. No chest pain or shortness of breath. Not complaining of any significant hip pain. OBJECTIVE: VITAL SIGNS: Temperature 37.1. Vital signs stable. GENERAL: Physical examination shows a pleasant elderly male. He is sitting up in his bedside chair and looks pretty comfortable. He is awake, alert and pretty appropriate this morning. EXTREMITIES: Examination of the left hip reveals the dressing to be clean, dry and intact. Hip is located. Leg lengths are equal. He is neurologically intact. ASSESSMENT: A 73-year-old gentleman postop day 2 from a left hip replacement, doing pretty well except for confusion issues. This is a fairly classic sundowning. No signs of other metabolic disturbance. PLAN: I had a long discussion with the patient and family today. We talked about discharge. We are going to see how he does today. I think the best thing for this gentleman would be to go home in a familiar environment. I emphasized the importance of keeping him up during the day and sleeping at night and avoiding pain medicines. Will continue DVT prophylaxis including TEDs, SCDs, and aspirin. Limit pain medicine to Tylenol as much as possible. We will see how things go throughout the day as far as discharge.
[2018-10-25] MEDS: LISINOPRIL 20 MG TAB PO SCH (11:59)
[2018-10-25] MEDS: FERROUS GLUCONATE 324 MG TAB PO SCH ×2 (11:59→18:26)
[2018-10-25] MEDS: ASCORBIC ACID 500 MG TAB PO SCH ×2 (11:59→18:26)
[2018-10-25] MEDS: CEROVITE ADV FORMULA TAB PO SCH (11:59)
[2018-10-25] MEDS: METOPROLOL SUCC 50MG EXT REL TAB PO SCH (12:00)
[2018-10-25] MEDS: CYANOCOBALAMIN (VITAMIN B-12) 2,500 MCG TAB.SUBL SL SCH (12:00)
[2018-10-25] MEDS: DOCUSATE SODIUM 100 MG CAP PO SCH ×2 (12:00→20:52)
[2018-10-25] MEDS: ASPIRIN 81 MG ECTAB PO SCH ×2 (12:00→20:55)
[2018-10-25] MEDS: SENNA 8.6 MG TAB PO SCH (20:54)
[2018-10-26] MEDS: TRAMADOL HCL 50 MG TABLET PO PRN (04:37)
[2018-10-26] MEDS: ACETAMINOPHEN 500 MG TAB PO SCH (05:03)
[2018-10-26] MEDS: FERROUS GLUCONATE 324 MG TAB PO SCH (08:27)
[2018-10-26] MEDS: DOCUSATE SODIUM 100 MG CAP PO SCH (08:27)
[2018-10-26] MEDS: LISINOPRIL 20 MG TAB PO SCH (08:28)
[2018-10-26] MEDS: CYANOCOBALAMIN (VITAMIN B-12) 2,500 MCG TAB.SUBL SL SCH (08:28)
[2018-10-26] MEDS: ASPIRIN 81 MG ECTAB PO SCH (08:28)
[2018-10-26] MEDS: CEROVITE ADV FORMULA TAB PO SCH (08:28)
[2018-10-26] MEDS: METOPROLOL SUCC 50MG EXT REL TAB PO SCH (08:28)
[2018-10-26] MEDS: ASCORBIC ACID 500 MG TAB PO SCH (08:29)
--- NOTE | 2018-10-26 11:19 | Progress Note ---
DATE: 10/26/2018 SUBJECTIVE: A 73-year-old gentleman postop day 3 from a left hip replacement. He is doing better. Pain seems to be controlled. He was a little less confused last evening. No chest pain or shortness of breath. OBJECTIVE: VITAL SIGNS: Temperature 37.0. Vital signs stable. PHYSICAL EXAMINATION: GENERAL: Reveals a healthy pleasant elderly male. He is sitting up in his bedside and looks reasonably comfortable. EXTREMITIES: Examination of the left hip reveals the dressing to be clean, dry and intact. Leg lengths are equal. He does have some mild to moderate swelling of his leg. He is neurologically intact. ASSESSMENT: A 73-year-old male postop day 3 from a left hip replacement, doing better. Less confusion issues. He does have some short-term memory issues exacerbated by his stay in the hospital. Seems to be getting better. Pain seems to be controlled. He does have some swelling, but some of this is probably related to his pounding on his thigh after surgery the first night. PLAN: 1. DVT prophylaxis including thigh-high TEDs, SCDs, and aspirin twice a day. 2. PT/OT. Weight bear as tolerated. Left total hip protocol. 3. Pain control. We are going to stick to Tylenol as much as possible to avoid the side effects of narcotics and confusion. 4. Disposition: He is planning to be discharged home with some home health likely later today if does okay in therapy.
--- NOTE | 2018-11-03 19:05 | Discharge Summary ---
ADMITTING PHYSICIAN AND SURGEON: Dr. Venkata Delacruz. ADMITTING DIAGNOSIS: Left hip degenerative joint disease. SURGERY PERFORMED: Left total hip arthroplasty. CONSULTS: None were obtained. History and physical examination are well documented within the patient's chart. HOSPITAL COURSE: The patient was admitted to [facility] on 10/23/2018 and underwent a left total hip arthroplasty. He tolerated the procedure well and there were no complications. He was transferred to PACU postoperatively. He was later transferred to the orthopedic floor for further care. He was given Ancef for antibiotic prophylaxis, ROSAURA stockings, SCDs, as well as aspirin for DVT prophylaxis. Hemoglobin, hematocrit and vital signs were monitored during his hospital stay and remained stable. He did not require any blood transfusions. By postop day #3, he was tolerating a regular diet, pain was well controlled with oral pain medication. He was participating in both physical therapy and occupational therapy. On postop day #3, he was discharged home and set up with home health services. He was given printed discharge instructions and specific instructions to continue total hip precautions. He can weightbear as tolerated. He was given prescriptions for Tylenol and tramadol. Continue the use of ROSAURA hose stockings as well as aspirin for DVT prophylaxis. Follow up in approximately 2 weeks postop or sooner if there are any problems or concerns.
== END 2018-10-26 13:08 | disposition home health service (06) | DRG 470 ==
LOC: ASU 04:51 → 3E 08:47

== ENCOUNTER 2019-01-23 10:30 | Observation (INO) ==
--- NOTE | 2019-01-18 10:19 | Anesthesiology Consultation ---
Date of Service January 18, 2019 Assessment & Plan Chart Review Chart Review: Acceptable Risk for Surgery and Patient NOT seen in Pre Admission Testing Consults Requested none History Surgery Operation Date: 01/23/19 13:15 Proposed Procedures p Open Right Inguinal Hernia Repair - Tony Brumfiedl MD, FACS Height/Weight Height: 6 ft Weight: 98.43 kg Allergies Allergy/AdvReac Type Severity Reaction Status Date / Time prednisone Allergy Intermediate Becomes Verified 01/18/19 08:14 agitated tramadol Allergy Intermediate hallucianti Verified 01/18/19 08:14 ons Medications Home Medications Medication Instructions Recorded Confirmed Last Taken lisinopril 20 mg tablet 20 mg PO QAM #90 tab 09/05/18 01/18/19 10/22/18 08:00 Ocuvite Adult 50 Plus 1 cap PO DAILY 09/28/18 01/18/19 10/22/18 08:00 cyanocobalamin (vitamin B-12) 2,500 mcg SUBLINGUAL QAM 09/28/18 01/18/19 10/22/18 08:00 [Vitamin B-12] multivitamin 1 cap PO QAM 09/28/18 01/18/19 10/22/18 08:00 metoprolol succinate 50 mg PO DAILY 01/18/19 01/18/19 Unknown Past Medical History Medical History Arthritis Bradycardia Drug-induced per PCP -- metoprolol was recently increased to 100mg, but then HR was 35 at PCP office 09/26, now decreased to 50mg only to be given if HR >50. Per pt's , HR has only been over 50 once since then. HR 45 at PAT appt. Pt asymptomatic. History of bronchitis Hypertension RECENT DX Left bundle-branch block Noted at PCP office 06/2018, prompted cardiac workup. Nonischemic cardiomyopathy Poor short term memory RECENT PROBLEM..DISCUSSED WITH PCP Systolic heart failure EF 40% on echo 07/09/18 Past Family History Family History Mother Hypertension Father Heart disease Brother Heart disease Other Dementia Past Surgical History Surgical History H/O circumcision Age 11 History of anesthesia reaction FOR CTR SURGERY, BLOCK WOULD NOT WORK>REQUIRED GENERAL ANESTHESIA (45 YEARS AGO) History of back surgery Discectomy/laminectomy, pt denies hardware History of carpal tunnel surgery of left wrist History of excision of pilonidal cyst History of total hip arthroplasty LEFT Social History Smoking Status: Never smoker Do You Dip or Chew Tobacco: No Hx Alcohol Use: No Hx Substance Use: No substance use type: does not use Testing Laboratory Results Laboratory Tests 01/17/19 01/17/19 10:53 10:53 WBC 8.92 Hgb 14.2 Hct 42.4 Plt Count 232 Sodium 140 Potassium 4.5 Chloride 104 Carbon Dioxide 33 H BUN 14 Creatinine 0.89 Glucose 103 H Stress Test Date: 07/26/18 Type: nuclear Impression: 1. Myocardial perfusion negative for ischemic changes. 2. Large fixed defect possibly secondary to LBBB artifact, but cannot exclude infarct. 3. Hypokinesis of the septal wall segments, possibly due to LBBB. 4. Mildly reduced left ventricular systolic function. EF 46%. 5. Indeterminate Lexiscan ECG. part of work up for LBBB
[~2019-01-23 10:30] MED LIST changes: +CEFAZOLIN 2000MG 2,000 MG/15 ML SYR IV SCH; -CYAN100T6 PO; +LR 15ML/HR IV SCH; -MULTTAB58 PO; -ZINC220C4 PO
--- NOTE | 2019-01-23 11:31 | History & Physical Bridge Note ---
Date of Service January 23, 2019 History & Physical Bridge Note I have examined the patient, reviewed the History & Physical and in the interval since the performance of the History & Physical I have noted the following changes of clinical significance: no changes noted
[2019-01-23] MEDS ORDERED: LIDOCAINE HCL 2% 2 ML VIAL/AMP(20MG/ML) INFIL ONE (11:41)
[2019-01-23] MEDS ORDERED: MIDAZOLAM HCL 1 MG/ML 2ML VIAL ONE (11:41)
[2019-01-23] MEDS ORDERED: PROPOFOL IV EMULSION 10 MG/ML 20 ML VIAL IV ONE (11:41)
[2019-01-23] MEDS ORDERED: fentaNYL citrate 100 MCG/2 ML VIAL ONE (11:42)
[2019-01-23] MEDS ORDERED: BUPIVACAINE/EPINEPHRINE 0.5% MPF 1:200,000 30 ML VIAL ONE (11:45)
[2019-01-23] MEDS ORDERED: CEFAZOLIN 250 MG/ML 1 GM VIAL ONE (11:45)
[2019-01-23] MEDS ORDERED: ATROPINE SULFATE 0.1 MG/ML 10ML SYR IV PRN (11:52)
[2019-01-23] MEDS ORDERED: ePHEDrine sulfate 50 MG/ML AMP IV PRN (11:52)
[2019-01-23] MEDS ORDERED: ONDANSETRON INJ 2 MG/ML 2 ML VIAL IV PRN ×2 (11:52→14:58)
[2019-01-23] MEDS ORDERED: BUPIVACAINE 0.5 % 5 MG/1 ML MPF 30ML VIAL ONE (12:01)
[2019-01-23] MEDS ORDERED: ACETAMINOPHEN 1000 MG/100 ML IV IV ONE (12:26)
[2019-01-23] MEDS ORDERED: NEOSTIGMINE METHYLSULFATE 5 MG/5 ML SYR ONE (12:32)
[2019-01-23] MEDS ORDERED: GLYCOPYRROLATE 0.2 MG/ML VIAL ONE (12:32)
[2019-01-23] MEDS ORDERED: LARYING-O-JET KIT (LTA) ONE (12:32)
[2019-01-23] MEDS ORDERED: ROCURONIUM BROMIDE 10 MG/ML 5 ML VIAL ONE (12:32)
[2019-01-23] MEDS ORDERED: ACETAMINOPHEN 1,000 MG/100 ML VIAL IV ONE (12:55)
--- NOTE | 2019-01-23 12:55 | Post Operative Brief Note ---
PG Immediate Post Op with CF Date of Surgery January 23, 2019 Pre & Post Diagnosis Operation Date: 01/23/19 12:00 Pre-Op Diagnosis: Right Inguinal Hernia Post-Op Diagnosis: Right Inguinal Hernia I identified the patient and participated in the time-out.: Yes Procedure Operation Date: 01/23/19 12:00 Actual Procedures p Open Right Inguinal Hernia Repair with Mesh(Right) - oTny Brumfield MD, FACS Surgeon Tony Brumfield MD, FACS Presales Consultant Sergio Rowe Estimated Blood Loss 10 Findings Consistent with Post-Op Diagnosis Specimens Specimen Description: none per surgeon
[2019-01-23] MEDS: fentaNYL citrate 100 MCG/2 ML VIAL IV PRN ×3 (13:25→13:35)
--- NOTE | 2019-01-23 13:31 | Operative Report ---
DATE OF OPERATION: 01/23/2019 NAME OF OPERATION: Open right inguinal hernia repair. PREOPERATIVE DIAGNOSIS: Right inguinal hernia. POSTOPERATIVE DIAGNOSIS: Right inguinal hernia with large indirect defect. STAFF SURGEON: Tony Brumfield M.D. BEEF CATTLE FARMER: Ruth Rowe. ANESTHESIA: General. DESCRIPTION OF PROCEDURE: The patient was brought in the operating room and placed on the operating table in supine position. His right lower quadrant prepped and draped in usual fashion. A 0.5% plain Marcaine was used to anesthetize skin and subcutaneous tissue and then incision made parallel to the inguinal ligament, carrying dissection down identifying the external oblique fibers. My catering assistant helped with prepping, draping, repair of the hernia and closure of the wound. The external oblique fibers were opened along their length to the external ring, mobilizing the cord structures. The patient had a very large indirect hernia sac which most likely contained colon. It was dissected away from the cord structures, then reduced. The internal ring was then reinforced using a large mesh plug, secured to surrounding tissue using 0 silk suture. At this point, a large mesh patch was placed into the floor of the canal around the cord structures, secured to surrounding tissue using #2-0 Ethibond suture. We were careful to identify the ilioinguinal and iliohypogastric nerves. The site was irrigated with antibiotic solution and the external oblique fibers closed over the mesh around the cord structures using 2-0 Ethibond suture. The site anesthetized using 0.5% plain Marcaine. Subcutaneous tissue reapproximated using 2-0 plain suture and then the skin reapproximated using 4-0 nylon suture and Steri-Strips. The patient was transferred to recovery room in stable condition. I attest to the content of the Intraoperative Record and any orders documented therein. Any exception s are noted below.
[2019-01-23] MEDS ORDERED: IBUPROFEN 600 MG TAB PO PRN (14:58)
[2019-01-23] MEDS ORDERED: MoRPHine SULFATE 2 MG/ML CARP IV PRN ×2 (14:58→16:48)
[2019-01-23] MEDS ORDERED: HYDROCODONE/ACETAMOPHEN 5/325MG TAB PO PRN ×4 (14:58→16:48)
[2019-01-23] MEDS ORDERED: PROMETHAZINE HCL 12.5 MG in SODIUM CHLORIDE 0.9% 50 ML IV PRN (14:58)
[2019-01-23] MEDS ORDERED: SODIUM CHLORIDE 0.9% 1000ML 1,000 ML IV SCH (14:58)
--- NOTE | 2019-01-23 15:07 | Anesthesiology Progress Note ---
Date of Service January 23, 2019 Anesthesia Post Procedure Vital Signs Vital Signs: Temp Pulse Pulse Resp BP BP Pulse Ox 01/23/19 14:20 36.4 C L 48 L 18 158/81 H 99 01/23/19 14:05 36.4 C L 48 L 18 166/77 H 99 01/23/19 13:55 46 L 18 166/79 H 99 01/23/19 13:45 49 L 18 171/83 H 100 01/23/19 13:35 43 L 18 157/68 H 100 01/23/19 13:25 50 L 18 139/70 100 01/23/19 13:19 36.6 C 54 L 18 144/65 H 95 01/23/19 10:54 36.8 C 53 L 16 162/78 H 97 Transfer of Care Handoff Completed per policy Notes Mental Status: alert / awake / arousable Patient Amnestic to Procedure: Yes Nausea / Vomiting: adequately controlled Pain: adequately controlled Airway Patency, RR, SpO2: stable & adequate BP & HR: stable & adequate Hydration State: stable & adequate Anesthetic Complications: no major complications apparent
--- NOTE | 2019-01-23 16:06 | Consultation ---
Date of Consultation January 23, 2019 Assessment & Plan (1) H/O right inguinal hernia repair: pain control, diet, d/c planning per surgery some mild cough and still on oxygen post op, likely just some atelectasis encouraged him to continue to sit upright, use bedside spirometry check CBC and BMP in the AM likely will be fine for d/c in the AM (2) Hypertension: continue Metoprolol, Lisinopril (3) Left bundle branch block (LBBB): h/o such, had a work up done, no significant coronary disease follows with Dr. Parikh (4) Non-ischemic cardiomyopathy: EF was 40% in June 2018 he examines euvolemic, does not follow a fluid restriction again, follows with Dr. Parikh History of Present Illness Requesting Physician: Dr. Brumfield Reason for Consultation: Medical management Attending Physician: Tony Brumfield MD, [facility] History of Present Illness 73 yo male with history of HTN, LBBB presents today after elective repair of right inguinal hernia, indirect, with bowel in hernia. Patient says he has had the hernia for several years but recently it got bigger, more tender, not reducible. He had an US done by his PCP that showed the indirect hernia, referred to Dr. Brumfield. Today he had open right inguinal repair with mesh. No complications, transferred to floor in stable condition. Currently with some pain in right groin. No chest pain, no dyspnea. Has a mild non productive cough after surgery, he is trying to use bedside spirometry more often. No nausea or pain. He was able to drink some liquids. Allergies Allergy/AdvReac Type Severity Reaction Status Date / Time prednisone Allergy Intermediate Becomes Verified 01/23/19 10:46 agitated tramadol Allergy Intermediate hallucianti Verified 01/23/19 10:46 ons Home Medications Home Medications Medication Instructions Recorded Confirmed Type lisinopril 20 mg tablet 20 mg PO QAM #90 tab 09/05/18 01/23/19 History Ocuvite Adult 50 Plus 1 cap PO DAILY 09/28/18 01/23/19 History cyanocobalamin (vitamin B-12) 2,500 mcg SUBLINGUAL QAM 09/28/18 01/23/19 History [Vitamin B-12] multivitamin 1 cap PO QAM 09/28/18 01/23/19 History metoprolol succinate 50 mg PO DAILY 01/18/19 01/23/19 History cephalexin [Keflex] 500 mg PO TID #15 cap 01/24/19 Rx Patient History Medical History Arthritis Bradycardia Drug-induced per PCP -- metoprolol was recently increased to 100mg, but then HR was 35 at PCP office 09/26, now decreased to 50mg only to be given if HR >50. Per pt's , HR has only been over 50 once since then. HR 45 at PAT appt. Pt asymptomatic. History of bronchitis Hypertension RECENT DX Left bundle-branch block Noted at PCP office 06/2018, prompted cardiac workup. Nonischemic cardiomyopathy Poor short term memory RECENT PROBLEM..DISCUSSED WITH PCP Systolic heart failure EF 40% on echo 07/09/18 Surgical History History of anesthesia reaction FOR CTR SURGERY, BLOCK WOULD NOT WORK>REQUIRED GENERAL ANESTHESIA (45 YEARS AGO) History of total hip arthroplasty LEFT Hx of inguinal hernia surgery (01/23/19) Open right inguinal hernia repair. Dr. Nickerson 01/23/19 H/O circumcision Age 11 History of back surgery Discectomy/laminectomy, pt denies hardware History of carpal tunnel surgery of left wrist History of excision of pilonidal cyst Family History Mother Hypertension Father Heart disease Brother Heart disease Other Dementia Social History Preferred Language: Swiss Communication Ability: Effective Finance Lead Required: No Beliefs That Will Affect Care: None marital status: Current Living Situation: Spouse Other Information That Helps Us Care for You: No Feels Safe at Home: Yes Safety Concerns: Feels Safe At This Time Smoking Status: Never smoker Do You Dip or Chew Tobacco: No ; Second Hand Exposure: No ; Tobacco Cessation Education Requested by Patient: No Hx Alcohol Use: No Hx Substance Use: No Seatbelt Use: always Review of Systems Review of Systems: All systems reviewed & are unremarkable except as noted in HPI & below Constitutional: no fever, no chills, no sweats, no fatigue and no weakness Respiratory: + cough (dry); no dyspnea Cardiovascular: no chest pain, no palpitations and no edema Gastrointestinal: + abdominal pain (right inguinal pain); no nausea, no vomiting, no constipation and no diarrhea/loose stools Genitourinary: no dysuria, no urinary frequency and no hematuria Musculoskeletal: no back pain and no joint pain Physical Exam Constitutional: WD/WN, vitals as above Eyes: PERRL, conjunctivae normal, anicteric sclerae ENMT: external ear and nose normal, oropharynx normal Neck: trachea midline, no thyromegaly Respiratory: normal respiratory effort, lungs clear to auscultation Cardiovascular: Rate/Rhythm: regular rhythm and + bradycardic Heart Sounds: normal S1 and normal S2 Vessels: no JVD Extremities: normal capillary refill; no edema Gastrointestinal (Abdomen): Inspection/Auscultation: abdomen normal to inspection and normal bowel sounds; abdomen not distended Percussion/Palpation: + abdomen tender (right inguinal area) and abdomen soft; no guarding and abdomen not rigid Musculoskeletal: no cyanosis or clubbing, extremities motor strength 5/5 Skin: no rashes, warm and dry Neurologic: patellar DTR's 2+ bilat, sensation intact and PERRL, EOMI, acco mmodation nl, no face palsy, no dysarthria Psychiatric: A+Ox3, euthymic affect Lymphatic: no cervical or axillary lymphadenopathy Results & Data Vital Signs (Past 12 Hours) Vital Signs Temp Pulse Pulse Resp BP BP Pulse Ox 01/23/19 15:40 36.3 C L 43 L 16 168/89 H 95 01/23/19 15:11 36.5 C 48 L 16 154/86 H 100 01/23/19 14:40 36.4 C L 44 L 18 168/99 H 99 01/23/19 14:20 36.4 C L 48 L 18 158/81 H 99 01/23/19 14:05 36.4 C L 48 L 18 166/77 H 99 01/23/19 13:55 46 L 18 166/79 H 99 01/23/19 13:45 49 L 18 171/83 H 100 01/23/19 13:35 43 L 18 157/68 H 100 01/23/19 13:25 50 L 18 139/70 100 01/23/19 13:19 36.6 C 54 L 18 144/65 H 95 01/23/19 10:54 36.8 C 53 L 16 162/78 H 97 Medications Administered Current Inpatient Medications Acetaminophen (Tylenol) 650 mg PO Q4H PRN PRN Reason: Pain Stop: 02/22/19 14:57 Last Admin: 01/24/19 03:40 Dose: 650 mg Documented by: Hydrocodone Bitart/Acetaminophen ([place] 5/325) 1 - 2 tab PO Q4H PRN PRN Reason: Pain Stop: 02/06/19 14:57 Promethazine HCl 12.5 mg/ (Sodium Chloride) 50.5 mls @ 204 mls/hr IV Q6H PRN PRN Reason: Nausea And Vomiting Stop: 02/22/19 14:57 Cefazolin Sodium (Ancef 2000mg) 2,000 mg in 15 mls @ 3.75 mls/min IV Q8H TAMMIE; Protocol Stop: 02/02/19 19:59 Last Admin: 01/24/19 04:03 Dose: 3.75 mls/min Documented by: Ibuprofen (Motrin) 600 mg PO Q6H PRN PRN Reason: Pain Stop: 02/22/19 14:57 Lisinopril (Zestril) 20 mg PO QAM TAMMIE Stop: 02/23/19 08:59 Magnesium Hydroxide (Milk Of Magnesia) 30 ml PO BID TAMMIE Stop: 02/22/19 20:59 Last Admin: 01/23/19 20:14 Dose: 30 ml Documented by: Metoprolol Succinate (Toprol Xl) 50 mg PO DAILY TAMMIE Stop: 02/23/19 08:59 Morphine Sulfate (Morphine Sulfate) 2 mg IV Q3H PRN PRN Reason: Pain Stop: 02/06/19 14:57 Multivitamins/Minerals (Multivitamin W/ Minerals Tab) 1 tab PO DAILY TAMMIE Stop: 02/23/19 08:59 Ondansetron HCl (Zofran) 4 mg IV 4XDQ4H PRN PRN Reason: Nausea Stop: 02/22/19 14:57 PG Care Time/CCT Total # of Minutes Spent Total Time Spent with Patient: Total time spent is greater than 50% in coordination of care (as documented) at patient's floor/unit and/or counseling patient:
[2019-01-23] MEDS: ACETAMINOPHEN 325 MG TAB PO PRN (18:06)
[2019-01-23] MEDS: CEFAZOLIN 2000MG 2,000 MG/15 ML SYR IV SCH (20:12)
[2019-01-23] MEDS: MAGNESIUM HYDROXIDE SUSP 30 ML UDC PO SCH (20:14)
[2019-01-24] MEDS: ACETAMINOPHEN 325 MG TAB PO PRN (03:40)
[2019-01-24] MEDS: CEFAZOLIN 2000MG 2,000 MG/15 ML SYR IV SCH (04:03)
[2019-01-24 05:48] LABS: Mean Corpuscular Hemoglobin 29.4 pg (25-34); Mean Corpuscular Hgb Conc 34.2 g/dL (32-36); Mean Platelet Volume 9.6 fL (7.4-10.4); Platelet Count 190 K/uL (130-400); RDW Coefficient of Variation 12.1 % (11.5-14.5); Red Blood Count 4.42 M/uL (4.7-6.1)
[2019-01-24 06:18] LABS: BUN Creatinine Ratio 14.5 (10-20); Calcium 8.5 mg/dl (8.5-10.1); Creatinine Clr Calc Pharmacy 79.4 ml/min; Est GFR (African American) 85.7; Potassium 3.9 mmol/L (3.5-5.1)
--- NOTE | 2019-01-24 07:34 | Discharge Summary ---
DATE OF ADMISSION: 01/23/2019 DATE OF DISCHARGE: 01/24/2019 PRINCIPAL DIAGNOSIS: Right inguinal hernia. PROCEDURES: The patient underwent open right inguinal hernia repair. HISTORY OF PRESENT ILLNESS: The patient is a 73-year-old male with enlarging right inguinal hernia, brought to the hospital for elective repair on 01/23/2019. He underwent open right inguinal hernia repair which was a very large hernia containing bowel. He did well and has done well overnight. His family is at the bedside. He is ready for discharge home to be followed in the surgical clinic next week.
[2019-01-24] MEDS ORDERED: LISINOPRIL 20 MG TAB PO SCH (09:00)
[2019-01-24] MEDS ORDERED: METOPROLOL SUCC 50MG EXT REL TAB PO SCH ×2 (09:00→12:00)
[2019-01-24] MEDS ORDERED: CEROVITE ADV FORMULA TAB PO SCH (09:00)
[2019-01-24] MEDS: MAGNESIUM HYDROXIDE SUSP 30 ML UDC PO SCH (09:07)
== END 2019-01-24 11:30 | disposition home or self-care (01) ==
LOC: ASU 10:30 → 3W 10:30

== ENCOUNTER 2019-09-19 06:46 | Observation (INO) ==
--- NOTE | 2019-05-20 15:33 | Anesthesiology Consultation ---
Date of Service May 20, 2019 Assessment & Plan (1) Encounter for pre-operative examination: - S/P Open right inguinal hernia repair: 01/23/19: Grade view 1, MAC#3, ETT 7.5 at [facility] - Cardiology office visit: 04/23/19: "The patient is stable from a cardiovascular standpoint. Fortunately, he remains well compensated in terms of his mild cardiomyopathy." F/U 6 months recommended. Chart Review Chart Review: Acceptable Risk for Surgery (pending evaluation AM DOS) and Patient NOT seen in Pre Admission Testing History Surgery Operation Date: 06/14/19 12:30 Proposed Procedures p Right Total Hip Replacement - Venkata Delacruz MD Height/Weight Height: 6 ft Weight: 97.976 kg Allergies Allergy/AdvReac Type Severity Reaction Status Date / Time prednisone Allergy Intermediate Becomes Verified 05/20/19 11:01 agitated tramadol Allergy Intermediate hallucianti Verified 05/20/19 11:01 ons Medications Home Medications Medication Instructions Recorded Confirmed Last Taken lisinopril 20 mg tablet 20 mg PO QAM #90 tab 09/05/18 05/20/19 01/22/19 08:00 Ocuvite Adult 50 Plus 1 cap PO DAILY 09/28/18 05/20/19 01/22/19 12:00 cyanocobalamin (vitamin B-12) 2,500 mcg SUBLINGUAL QAM 09/28/18 05/20/19 01/22/19 08:00 [Vitamin B-12] multivitamin 1 cap PO QAM 09/28/18 05/20/19 01/22/19 08:00 metoprolol succinate 50 mg PO DAILY 01/18/19 05/20/19 01/23/19 08:30 Past Medical History Medical History Arthritis Bradycardia "Drug-induced"-- metoprolol was recently increased to 100mg, but then HR was 35 at PCP office 09/26, now decreased to 50mg only to be given if HR >50. HR 68 at 03/2019 cardiology office visit Bradycardia (Chronic) History of bronchitis Hypertension Left bundle-branch block Noted at PCP office 06/2018, prompted cardiac workup Nonischemic cardiomyopathy Poor short term memory PCP aware/monitoring Systolic heart failure EF 40% on echo 06/2018 Past Family History Family History Mother Hypertension Father Heart disease Brother Heart disease Other Dementia No family history of adverse response to anesthesia Denies family history of Ovarian cancer Prostate cancer Diabetes Coronary heart disease Myocardial infarction Breast cancer Colorectal cancer Cancer Stroke Past Surgical History Surgical History H/O circumcision Age 11 History of anesthesia reaction FOR CTR SURGERY, BLOCK WOULD NOT WORK>REQUIRED GENERAL ANESTHESIA (45 YEARS AGO) History of back surgery Discectomy/laminectomy, pt denies hardware History of carpal tunnel surgery of left wrist History of excision of pilonidal cyst History of left hip replacement Hx of inguinal hernia surgery (01/23/19) Open right inguinal hernia repair: 01/23/19: Grade view 1, MAC#3, ETT 7.5 at [facility] Social History Smoking Status: Never smoker Do You Dip or Chew Tobacco: No Hx Alcohol Use: No Hx Substance Use: No substance use type: does not use Testing Laboratory Results 05/16/19 WBC 8.32 H/H 15.2/44.5 PLATELETS 217 SODIUM 139 POTASSIUM 4.3 CHLORIDE 104 CO2 31 BUN 17 CREATININE 0.92 GLUCOSE 98 PT 10.2 PTT 26.5 INR 1.0 Electrocardiogram Date: 09/26/18 Findings: + SB @ (35bpm) Left axis deviation. LBBB. *prompted cardiac workup via PCP. Beta lexis adjusted and patient had cardiology evaluation 03/2019 (HR 68 at visit)* Chest X-Ray Date: 10/05/18 FINDINGS: Stable calcified granuloma within the left lung base. No pleural effusions. No pneumothorax. The heart is normal in size. IMPRESSION: No acute process. Echocardiogram Date: 07/09/18 EF: 40%. LVEF is mildly decreased. There is mild global HK of the LV. Mild mitral regurgitation. Stress Test Date: 07/26/18 Type: nuclear Impression: 1. Myocardial perfusion negative for ischemic changes. 2. Large fixed defect possibly secondary to LBBB artifact, but cannot exclude infarct. 3. Hypokinesis of the septal wall segments, possibly due to LBBB. 4. Mildly reduced left ventricular systolic function. EF 46%. 5. Indeterminate Lexiscan ECG. *Stress test done as part of work up for LBBB*
--- NOTE | 2019-09-14 20:38 | History and Physical Report ---
DATE OF ADMISSION: 09/19/2019 CHIEF COMPLAINT: Persistent right hip pain, discomfort, and stiffness. 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 He has got a long history of hip problems and underwent a left hip replacement about 1 year ago. He has done quite well from this. He has had extensive conservative treatment in the past but now limited by his right hip pain and discomfort. He now limps on his right side. He has difficulty putting his shoes and socks on. He is constantly describing groin pain and thigh pain. The more he walks, the more he limps. He does have a history of some underlying dementia which seems to wax and wane from time to time. He is very happy with his left hip and would like to have his right hip replaced. Of note, at the time of his previous surgery, he did get sort of confused in the hospital. We tried to limit his medicines which seemed to help significantly. PAST MEDICAL HISTORY: 1. Short-term memory loss. 2. Hypertension. 3. Left bundle branch block. 4. Osteoarthritis. PAST SURGICAL HISTORY: Include: 1. Cyst removal. 2. Back surgery. 3. Carpal tunnel release. 4. Left hip replacement on 10/23/2018. 5. Right hernia repair. ALLERGIES: PREDNISONE WHICH CAUSES IRRITABILITY AND TRAMADOL, WHICH JUST CAUSES CONFUSION. CURRENT MEDICINES: Include: 1. Lisinopril 20 mg a day. 2. Metoprolol 50 mg a day. 3. Multivitamin. 4. Vitamin B12. 5. Ocuvite. 6. Vitamin C. 7. Tylenol. SOCIAL HISTORY: A 74-year-old male. He is a retired gibbs. He is . Fairly good social support system. No significant alcohol intake. FAMILY HISTORY: Noncontributory. REVIEW OF HISTORY: Negative for diabetes, neurologic problems, vascular problems or bleeding disorders. No chest pain or shortness of breath. No history of DVT or PE. Biggest medical issues is just his memory loss and mild dementia. PHYSICAL EXAMINATION: GENERAL: Shows a pleasant, middle-aged male, he looks to be in good health. He is awake, alert and appropriate. HEENT: Benign. NECK: Supple, no lymphadenopathy. LUNGS: Clear to auscultation. HEART: Has a regular rate and rhythm. ABDOMEN: Soft, nontender, nondistended. EXTREMITIES: Grossly neurovascularly intact except as follows: Examination of the right hip revealed patient walks with a minimal limp. He has got 0.5 cm short on the right side compared to the left. He does have a very stiff hip with internal rotation to neutral, which clearly recreates pain. Negative straight leg raise. He is neurologically intact. Examination of left hip reveals well-healed incision. No pain with hip motion. X-RAYS: X-rays of the right hip were reviewed. Shows advanced right hip DJD with complete joint space. He has got flattening of his femoral head. Fairly large medial osteophyte. The left hip replacement looks to be in good position with implants ingrown nicely. 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 He has failed conservative treatment. He has done well from his other side and would like to have his right hip replaced. He does have some memory and confusion issues, but in general feeling very well from his previous surgery. PLAN: We did talk about treatment options. We reattached all these issues with the family again today with especially the issues with compliance after surgery. They understand the increased risk with his underlying dementia and would like to proceed. We will proceed with a right total hip replacement. The risks and benefits of this procedure were explained to the patient and family including but not limited to DVT, PE, , infection, neurological injury, vascular injury, bleeding problem, pain, limited range of motion, stiffness, failure to relieve symptoms, incomplete relief of symptoms, need for further surgery in future, fracture, leg length inequality, nerve palsy, and dislocation. I extensively expressed a concern about dislocation. They are aware of. His is likely going to stay with him in the hospital to avoid confusion issues. We will try and limit narcotics and stick to Tylenol for pain and to take his metoprolol the morning of surgery. MTDD
[~2019-09-19 06:46] MED LIST changes: +ACETAMINOPHEN 500 MG TAB PO SCH; +BUPIVACAINE 0.5 % 5 MG/1 ML PF 10ML VIAL ONE; +FAMOTIDINE 20 MG TAB PO SCH; +GABAPENTIN 300 MG CAP PO SCH; -LR 15ML/HR IV SCH; +LR 500ML BOLUS, THEN 15ML/HR IV SCH; +LR 60ML/HR IV SCH; +METOCLOPRAMIDE HCL 10 MG TABLET PO SCH; +TRANEXAMIC ACID 1,000 MG **IV Pre-op IV SCH
[2019-09-19] MEDS ORDERED: PROPOFOL IV EMULSION 10 MG/ML 20 ML VIAL IV ONE (07:19)
[2019-09-19] MEDS ORDERED: MIDAZOLAM HCL 1 MG/ML 2ML VIAL ONE ×3 (07:19→08:22)
[2019-09-19] MEDS ORDERED: fentaNYL citrate 100 MCG/2 ML VIAL ONE (07:19)
[2019-09-19] MEDS ORDERED: MoRPHine SULFATE PF 1 MG/ML 10 ML AMP/VIAL ONE (08:25)
--- NOTE | 2019-09-19 08:38 | History & Physical Bridge Note ---
Date of Service September 19, 2019 History & Physical Bridge Note I have examined the patient, reviewed the History & Physical and in the interval since the performance of the History & Physical I have noted the following changes of clinical significance: no changes noted
[2019-09-19] MEDS ORDERED: BACITRACIN INJ 50,000 UNIT VIAL ONE (08:43)
[2019-09-19] MEDS ORDERED: BUPIVACAINE 0.5 % 5 MG/1 ML MPF 30ML VIAL ONE (08:43)
[2019-09-19] MEDS ORDERED: EPINEPHrine INJ 1 MG/ML AMP ONE (08:43)
[2019-09-19] MEDS ORDERED: ONDANSETRON INJ 2 MG/ML 2 ML VIAL IV PRN (08:53)
[2019-09-19] MEDS ORDERED: PROMETHAZINE HCL 6.25 MG in SODIUM CHLORIDE 0.9% 50 ML IV PRN (08:53)
[2019-09-19] MEDS ORDERED: NALBUPHINE HCL INJ 10 MG/ML AMP IV PRN (08:53)
[2019-09-19] MEDS ORDERED: NALOXONE HCL 1 MG in SODIUM CHLORIDE 0.9% 1000ML 1,000 ML IV PRN (08:53)
[2019-09-19] MEDS ORDERED: NALOXONE HCL 0.08 MG in SYRINGE 1.8 ML IV PRN (08:53)
[2019-09-19] MEDS ORDERED: KETOROLAC 30 MG/ML VIAL IV PRN (08:53)
[2019-09-19] MEDS ORDERED: LACTATED RINGER'S 500 ML IV PRN (08:53)
[2019-09-19] MEDS ORDERED: MoRPHine SULFATE PF 1 MG/ML 10 ML AMP/VIAL INT SPINAL ONE (08:53)
[2019-09-19] MEDS ORDERED: DiphenhydrAMINE HCL 50 MG/ML VIAL IV PRN (08:53)
[2019-09-19] MEDS ORDERED: ePHEDrine sulfate 50 MG/ML AMP IV PRN (08:53)
[2019-09-19] MEDS ORDERED: MEPERIDINE HCL 25 MG/ML CARP/VIAL IV PRN (08:53)
[2019-09-19] MEDS ORDERED: NALOXONE HCL 0.4 MG/1 ML VIAL/CARP IV PRN (08:53)
[2019-09-19] MEDS ORDERED: NO NARCOTICS OR SEDATIVES SCH (09:00)
[2019-09-19] MEDS ORDERED: SODIUM CHLORIDE 0.9% 1000ML 1,000 ML IV SCH (09:00)
[2019-09-19] MEDS ORDERED: DC INTRASPINAL MORPHINE SCH (09:00)
[2019-09-19] MEDS ORDERED: ePHEDrine sulfate 50 MG/ML AMP ONE (09:20)
--- NOTE | 2019-09-19 10:36 | Post Operative Brief Note ---
PG Immediate Post Op with CF Date of Surgery September 19, 2019 Pre & Post Diagnosis Operation Date: 09/19/19 09:05 Pre-Op Diagnosis: Right Hip Advanced Degenerative Joint Disease Post-Op Diagnosis: Right Hip Advanced Degenerative Joint Disease I identified the patient and participated in the time-out.: Yes Procedure Operation Date: 09/19/19 09:05 Actual Procedures p Right Total Hip Arthroplasty--Uncemented(Right) - Venkata Delacruz MD Surgeon Venkata Delacruz MD Foreign Food Cook Specialty Krystle, [facility] Estimated Blood Loss 200 Findings Consistent with Post-Op Diagnosis Fluids 500 cc Specimens Specimen Description: A. Right Femoral Head Drains Benoit Catheter Anesthesia Type Spinal MAC Complications none Disposition Accompanied Patient To Recovery: Yes Disposition: Recovery Room
--- NOTE | 2019-09-19 11:00 | Operative Report ---
Post Operative Report Pre & Post Diagnosis Operation Date: 09/19/19 09:05 Pre-Op Diagnosis: Right Hip Advanced Degenerative Joint Disease Post-Op Diagnosis: Right Hip Advanced Degenerative Joint Disease I identified the patient and participated in the time-out.: Yes Procedure Operation Date: 09/19/19 09:05 Actual Procedures p Right Total Hip Arthroplasty--Uncemented(Right) - Venkata Delacruz MD Surgeon Venkata Delacruz MD Picture Copyist Krystle, PAC Estimated Blood Loss 200 Findings Consistent with Post-Op Diagnosis Operative findings revealed advanced right hip DJD. He had extensive grade 4 [id number] disease of the femoral head and acetabulum and its significantly distorted femoral head. Moderate to large hip joint effusion. Large medial osteophyte. Fluids 500 cc. Specimens Right femoral head sent for pathology. Drains None. 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 He underwent a left hip replacement previously and is done well from this but not limited by his right hip pain. X-rays reveal advanced hip DJD. Elected proceed with surgical treatment. He does have some mild underlying dementia which is intermittent in severity and we really try to maximize his stability as a result of that. Description of Procedure Operative implants consist of: 1 Biomet G7 size 58 mm acetabular shell. 2. 6.5 cancellus acetabular screws 1 of 35 mm length and 1 of 30 mm length. 3. Amelia hole limited air 4. Highly cross-linked polyethylene liner with a 58 mm outer diameter, 40 mm inner diameter with a dyson placed inferior and posterior 5. Bridgett Corail size 11 KLA femoral stem. 6. +8.5/40 mm ceramic articular ball. Patient was taken to the operating room identified and placed in the operating table supine position protectors were properly padded. A spinal anesthetic had been implemented holding area. Benoit catheter was placed in sterile fashion with the patient then placed in the left lateral decubitus position. An axillary roll was placed. A Stulberg hip positioner was used for positioning. The right hip and leg were then prepped and draped in usual sterile fashion. A posterior lateral approach of the right hip was then performed to a curvilinear incision centered over the greater trochanter. Sharp dissection Through subcutaneous tissue down to the IT band gluteal fascia the IT band gluteal fascia incised longitudinally in line with skin incision. The underlying greater truck bursa was excised. The piriformis and external rotators were tagged and taken off the posterior aspect of the hip joint capsule. A posterior capsulotomy was then performed leaving a large flap for later repair. Great care was taken throughout the procedure protect the sciatic nerve at all times. Hip was internally rotated and dislocated. Femoral neck osteotomy cut was made with Final Cut 7 mm above the lesser trochanter. Femoral head was removed and sent for pathology. The femur retracted anteriorly. Attention drawn the acetabulum. The acetabular labrum was excised. The pulmonary fat was excised. Sequential reaming the acetabular was then performed begin with size 47 progressing up to 57. I did reamed a little bit with a 58 reamer. A 58 mm Biomet G7 acetabular shell was then placed about 40 degrees lateral opening and 20+ degrees of anteversion. We did put a little more anteversion in in order to maximize his stability. This was then fixed with two 6.5 cancellus acetabular screws. A anterior osteophyte from the acetabulum was removed. Trial liner was placed. Attention drawn the femur. The proximal femur was entered with a cookie-cutter followed by canal finder. I then broached begin the size 8 and progressed up to 11. Got excellent fit at 11. His femur was in particular the feet femoral neck was pretty narrow from anterior to posterior so we limited our implant choice. We got good fit. Calcar reamer was used smooth and off the calcar. I then trialed the hip and with a +8.5 articular ball provide full stability in full extension and external rotation with flexion to 90 degrees into rotation over 50 degrees. I did elect to place a dyson inferior and posterior to maximize his stability in flexion especially considering his underlying intermittent dementia. We elect to place these implants. All trial implants were removed. An apex hole eliminator was placed. A highly cross-linked polyethylene liner with a dyson placed inferior and posterior was impacted in position. A [place] KLA size 11 femoral stem was impacted in position. A +8.5/40 mm articular ball was placed. Hip was located once again found to be stable. Attention drawn toward closing. The wound was irrigated with copious amounts of pulsatile lavage solution. I did inject locally with 60 cc of half percent Marcaine with epinephrine. The posterior capsule and external rotators were then repaired through drill holes in the posterior trochanter with #2 Tycron suture. The IT band gluteal fascia then closed in 1 PDS suture running fashion with subcutaneous tissue then closed with 2 Dexon suture in a buried interrupted fashion the skin was closed skin brandon. Leg was then cleaned dried a sterile dressing composed Xeroform, 4 x 4's, sterile ABD pads and foam tape was applied. Patient then transferred to the recovery room in stable condition. Patient tolerated procedure well and there were no complications. I attest to the content of the Intraoperative Record and any orders documented therein. Any exceptions are noted below.
--- NOTE | 2019-09-19 11:10 | XRay Report ---
XR hip 1V RT w pelvis CLINICAL HISTORY: IN PACU - A/P PELVIS and LATERAL HIP COMPARISON: 12/06/2018 DISCUSSION: A total left hip arthroplasty is again visualized. There are postsurgical changes of a re cent total right hip arthroplasty. The acetabular femoral components appear well seated. There are ov erlying skin brandon. There is no dislocation. There is gas present within the soft tissues consisten t with recent surgery. IMPRESSION: Postsurgical changes of a total right hip arthroplasty. No evidence of dislocation ACT 112: Negative or not required by law. Electronically signed by: Taye Gutierrez M.D. 09/19/2019 11:08 AM
--- NOTE | 2019-09-19 11:19 | Anesthesiology Progress Note ---
Date of Service September 19, 2019 Anesthesia Post Procedure Vital Signs Vital Signs: Temp Pulse Pulse Resp BP Pulse Ox 09/19/19 11:15 73 14 116/75 94 09/19/19 11:05 71 12 125/73 100 09/19/19 10:55 69 14 110/73 100 09/19/19 10:45 71 14 111/73 99 09/19/19 10:40 36.3 C L 78 12 112/62 99 09/19/19 08:14 53 L 20 143/78 H 98 09/19/19 07:31 36.8 C 59 L 20 178/85 H 98 Transfer of Care Handoff Completed per policy Notes Mental Status: alert / awake / arousable Patient Amnestic to Procedure: Yes Nausea / Vomiting: adequately controlled Pain: adequately controlled Airway Patency, RR, SpO2: stable & adequate BP & HR: stable & adequate Hydration State: stable & adequate Neuraxial Anesthesia: was administered and sensory block is resolving Anesthetic Complications: no major complications apparent
[2019-09-19] MEDS ORDERED: bisacodyL 10 MG SUPP PR PRN (12:30)
[2019-09-19] MEDS ORDERED: MAGNESIUM HYDROXIDE SUSP 30 ML UDC PO PRN (12:30)
[2019-09-19] MEDS ORDERED: TAMSULOSIN HCL 0.4 MG CAP PO PRN (12:30)
[2019-09-19] MEDS ORDERED: ALUMINUM/MAGNESIUM SUSP 30 ML UDC PO PRN (12:30)
[2019-09-19] MEDS: KETOROLAC TROMETHAMINE 15 MG/ML VIAL IV SCH ×2 (14:30→19:19)
[2019-09-19] MEDS: ACETAMINOPHEN 500 MG TAB PO SCH ×2 (14:31→21:44)
[2019-09-19] MEDS: SODIUM CHLORIDE 0.9% 1000ML 1,000 ML IV SCH ×2 (16:16→22:45)
[2019-09-19] MEDS ORDERED: TRANEXAMIC ACID / 0.7% NACL 1,000 MG/100 ML BAG IV SCH (16:45)
[2019-09-19] MEDS: ASCORBIC ACID 500 MG TAB PO SCH (16:50)
[2019-09-19] MEDS: CEFAZOLIN 2000MG 2,000 MG/15 ML SYR IV SCH (16:52)
[2019-09-19] MEDS: ASPIRIN 81 MG ECTAB PO SCH (20:18)
[2019-09-19] MEDS: SENNA 8.6 MG TAB PO SCH (20:25)
[2019-09-19] MEDS: DOCUSATE SODIUM 100 MG CAP PO SCH (20:25)
--- NOTE | 2019-09-19 21:16 | Progress Notes ---
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 He is doing well. He denies any significant pain yet. No chest pain or shortness of breath. Not feeling dizzy or lightheaded. OBJECTIVE: VITAL SIGNS: Temperature 36.4. Vital signs stable. GENERAL: Shows a pleasant elderly male. He is sitting up in bed and talking to his . He appears awake, alert and oriented. LUNGS: Clear to auscultation. HEART: Has a regular rate and rhythm. ABDOMEN: Soft, nontender, nondistended. EXTREMITIES: Grossly neurovascularly intact except as follows. Examination of the right leg reveals leg lengths to be equal. His hip is located. Dressing is clean, dry and intact. Thigh is soft and supple. He can dorsiflex and plantarflex his foot appropriately. X-RAYS: X-rays of the right hip from recovery room reviewed. It shows right uncemented total hip arthroplasty. Components looked to be in good position. No signs of problems. 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 Pain is controlled. Hip is located. He is neurologically intact. He had a lot of problems with confusion after his last surgery and we are going to try and really limit narcotics and stick to Tylenol for pain. PLAN: 1. DVT prophylaxis including thigh-high TEDs, SCDs, and aspirin twice a day. 2. PT/OT. Weightbear as tolerated. Right total hip protocol. 3. Pain control, doing well with current pain regimen. We will try and stick to Tylenol as much as possible. 4. IV antibiotics x24 hours. 5. Disposition: Plan to discharge to home with some home health and his family's assistance once medically stable and adequately recovered. I think the sooner we get him home probably the better from the confusion standpoint.
[2019-09-19] MEDS ORDERED: Nursing to Pharmacy Communication SCH (22:45)
[2019-09-20] MEDS: CEFAZOLIN 2000MG 2,000 MG/15 ML SYR IV SCH (01:47)
[2019-09-20] MEDS: KETOROLAC TROMETHAMINE 15 MG/ML VIAL IV SCH ×4 (01:47→20:47)
[2019-09-20] MEDS ORDERED: NALOXONE HCL 0.4 MG/1 ML VIAL/CARP IV PRN (02:56)
[2019-09-20] MEDS ORDERED: METOCLOPRAMIDE HCL INJ 5 MG/ML 2 ML VIAL IV PRN (02:56)
[2019-09-20] MEDS ORDERED: ONDANSETRON INJ 2 MG/ML 2 ML VIAL IV PRN (02:56)
[2019-09-20] MEDS: ACETAMINOPHEN 500 MG TAB PO SCH ×3 (05:21→20:47)
[2019-09-20 05:35] LABS: Basophils # (auto) 0.02 K/uL (0-0.2); Basophils % (auto) 0.3 %; Eosinophils # (auto) 0.15 K/uL (0-0.5); Eosinophils % (auto) 1.9 %; Hematocrit (blood only) 34.3 % (42-52); Hemoglobin 11.1 g/dL (14.0-18.0); Immature Granulocytes # (auto) 0.02 K/uL (0.00-0.02); Immature Granulocytes % (auto) 0.3 %; Lymphocytes # (auto) 1.24 K/uL (1.2-3.4); Lymphocytes % (auto) 15.8 %; Mean Corpuscular Hemoglobin 28.4 pg (25-34); Mean Corpuscular Hgb Conc 32.4 g/dL (32-36); Mean Corpuscular Volume 87.7 fL (80-100); Mean Platelet Volume 10.2 fL (7.4-10.4); Monocytes % (auto) 10.2 %; Neutrophils # (auto) 5.61 K/uL (1.4-6.5); Neutrophils % (auto) 71.5 %; Platelet Count 164 K/uL (130-400); RDW Coefficient of Variation 12.5 % (11.5-14.5); RDW Standard Deviation 40.2 fL (36.4-46.3); Red Blood Count 3.91 M/uL (4.7-6.1); White Blood Count 7.84 K/uL (4.8-10.8)
[2019-09-20 05:59] LABS: BUN Creatinine Ratio 17.3 (10-20); Calcium 7.8 mg/dl (8.5-10.1); Creatinine Clr Calc Pharmacy 94.4 ml/min; Est GFR (African American) 100.7; Est GFR (Non-African American) 86.9; Potassium 3.4 mmol/L (3.5-5.1)
[2019-09-20] MEDS ORDERED: POTASSIUM CHLORIDE 20 MEQ TABCR PO ONE (07:18)
[2019-09-20] MEDS ORDERED: NON-FORMULARY MEDICATION (Multivitamin 1 CAP) PO SCH (09:00)
[2019-09-20] MEDS: MULTIVITAMIN TAB PO SCH (09:02)
[2019-09-20] MEDS: lisinopriL 20 MG TAB PO SCH (09:03)
[2019-09-20] MEDS: CYANOCOBALAMIN (VITAMIN B-12) 2,500 MCG TAB.SUBL SL SCH (09:03)
[2019-09-20] MEDS: DOCUSATE SODIUM 100 MG CAP PO SCH ×2 (09:03→20:50)
[2019-09-20] MEDS: ASPIRIN 81 MG ECTAB PO SCH ×2 (09:03→20:50)
[2019-09-20] MEDS: ASCORBIC ACID 500 MG TAB PO SCH ×2 (09:03→18:22)
[2019-09-20] MEDS: CEROVITE ADV FORMULA TAB PO SCH (09:04)
--- NOTE | 2019-09-20 09:26 | Progress Notes ---
DATE: 09/20/2019 SUBJECTIVE: A 74-year-old gentleman postop day 1 from a right hip replacement. He is doing pretty well. Pain seems to be controlled. Had a restless night, did not sleep much as per his . OBJECTIVE: VITAL SIGNS: Temperature 37.9. Vital signs stable. GENERAL: Physical examination shows a pleasant elderly male. The nurses were helping him to the bathroom when I visited him this morning. He looks pretty comfortable. EXTREMITIES: Dressing is clean, dry and intact. Leg lengths are equal. Hip is located. He is neurologically intact. LABORATORY DATA: Hemoglobin is 11.1. Hematocrit 34.3. Electrolytes are stable. ASSESSMENT: A 74-year-old gentleman postop day 1 from right hip replacement, doing pretty well. He was once again having some confusion and difficulty sleeping at night time. This morning, he looks baseline to me. He is getting around reasonably well. PLAN: 1. DVT prophylaxis include thigh-high TEDs, SCDs and aspirin twice a day. 2. PT/OT. Weight bear as tolerated. Right total hip protocol. 3. Pain control. Seems to be doing pretty well with current pain regimen. We are going to try and limit all narcotics to avoid confusion issues. 4. Disposition. Hoping to be discharged to home with some home health. We will see how he does today. Best thing for him will be to get home in his familiar environment.
--- NOTE | 2019-09-20 10:36 | Anesthesiology Progress Note ---
Date of Service September 20, 2019 Anesthesia Post Procedure Vital Signs Vital Signs: Temp Pulse Pulse Resp BP BP Pulse Ox 09/20/19 07:41 37.1 C 09/20/19 07:12 37.9 C H 80 18 159/65 H 93 09/20/19 03:25 37.2 C 82 20 127/66 94 09/20/19 02:15 20 94 09/20/19 01:15 16 92 09/19/19 23:44 36.8 C 76 18 131/73 96 09/19/19 23:08 16 94 09/19/19 22:21 15 94 09/19/19 21:20 15 93 09/19/19 20:16 09/19/19 20:15 36.7 C 68 16 154/89 H 92 09/19/19 19:18 17 91 09/19/19 18:15 16 94 09/19/19 17:17 20 94 09/19/19 16:15 16 96 09/19/19 15:13 36.4 C L 66 16 176/86 H 96 09/19/19 14:22 16 94 09/19/19 14:09 36.3 C L 64 16 151/94 H 94 09/19/19 13:46 24 95 09/19/19 13:11 36.1 C L 67 16 160/90 H 94 09/19/19 12:47 35.9 C L 58 L 14 151/82 H 92 09/19/19 12:29 16 93 09/19/19 12:13 36.5 C 54 L 16 137/74 95 09/19/19 11:55 67 14 126/79 92 09/19/19 11:45 36.3 C L 65 14 130/79 92 09/19/19 11:35 72 12 129/76 98 09/19/19 11:25 36.5 C 67 16 120/69 97 09/19/19 11:15 73 14 116/75 94 09/19/19 11:05 71 12 125/73 100 09/19/19 10:55 69 14 110/73 100 09/19/19 10:45 71 14 111/73 99 09/19/19 10:40 36.3 C L 78 12 112/62 99 Pulse Ox 09/20/19 07:41 09/20/19 07:12 09/20/19 03:25 09/20/19 02:15 09/20/19 01:15 09/19/19 23:44 09/19/19 23:08 09/19/19 22:21 09/19/19 21:20 09/19/19 20:16 92 09/19/19 20:15 09/19/19 19:18 09/19/19 18:15 09/19/19 17:17 09/19/19 16:15 09/19/19 15:13 09/19/19 14:22 09/19/19 14:09 09/19/19 13:46 09/19/19 13:11 09/19/19 12:47 09/19/19 12:29 09/19/19 12:13 09/19/19 11:55 09/19/19 11:45 09/19/19 11:35 09/19/19 11:25 09/19/19 11:15 09/19/19 11:05 09/19/19 10:55 09/19/19 10:45 09/19/19 10:40 Notes Mental Status: alert / awake / arousable Patient Amnestic to Procedure: Yes Nausea / Vomiting: adequately controlled Pain: adequately controlled Airway Patency, RR, SpO2: stable & adequate BP & HR: stable & adequate Hydration State: stable & adequate Neuraxial Anesthesia: was administered and sensory block resolved Anesthetic Complications: no major complications apparent
[2019-09-20] MEDS: METOPROLOL SUCC 50MG EXT REL TAB PO SCH (13:43)
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
[2019-09-20] MEDS: SENNA 8.6 MG TAB PO SCH (20:48)
[2019-09-20] MEDS ORDERED: MoRPHine SULFATE 2 MG/ML CARP IV STA (20:56)
[2019-09-20] MEDS ORDERED: MELATONIN 3 MG TAB PO PRN (20:56)
[2019-09-21] MEDS: KETOROLAC TROMETHAMINE 15 MG/ML VIAL IV SCH ×2 (01:41→09:44)
[2019-09-21] MEDS ORDERED: MoRPHine SULFATE 2 MG/ML CARP IV STA ×2 (01:59→04:10)
--- NOTE | 2019-09-21 04:11 | Billing Data ---
Date of Service September 21, 2019 Coding Level of Care Code 38563 Inpt Consult Level 3
[2019-09-21] MEDS: ACETAMINOPHEN 500 MG TAB PO SCH ×2 (06:37→13:59)
[2019-09-21 06:42] LABS: Eosinophils # (auto) 0.51 K/uL (0-0.5); Eosinophils % (auto) 5.3 %; Hematocrit (blood only) 32.7 % (42-52); Hemoglobin 11.4 g/dL (14.0-18.0); Immature Granulocytes # (auto) 0.02 K/uL (0.00-0.02); Immature Granulocytes % (auto) 0.2 %; Lymphocytes # (auto) 0.98 K/uL (1.2-3.4); Lymphocytes % (auto) 10.2 %; Mean Corpuscular Hemoglobin 30.2 pg (25-34); Mean Corpuscular Hgb Conc 34.9 g/dL (32-36); Mean Corpuscular Volume 86.5 fL (80-100); Mean Platelet Volume 10.1 fL (7.4-10.4); Monocytes # (auto) 0.95 K/uL (0.11-0.59); Monocytes % (auto) 9.9 %; Neutrophils # (auto) 7.14 K/uL (1.4-6.5); Neutrophils % (auto) 74.4 %; Platelet Count 146 K/uL (130-400); RDW Coefficient of Variation 12.5 % (11.5-14.5); RDW Standard Deviation 39.5 fL (36.4-46.3); Red Blood Count 3.78 M/uL (4.7-6.1)
[2019-09-21 07:24] LABS: BUN Creatinine Ratio 17.5 (10-20); Calcium 8.5 mg/dl (8.5-10.1); Creatinine Clr Calc Pharmacy 99.2 ml/min; Est GFR (African American) 102.7; Est GFR (Non-African American) 88.6; Potassium 3.6 mmol/L (3.5-5.1)
--- NOTE | 2019-09-21 09:19 | Progress Notes ---
DATE: 09/21/2019 SUBJECTIVE: A 74-year-old gentleman postop day 2 from right hip replacement. Doing pretty well. Had some confusion last night and was managed medically and doing well. Looks appropriate this morning. Pain is controlled. OBJECTIVE: VITAL SIGNS: Temperature 37.2. Vital signs stable. GENERAL: Physical examination shows a pleasant elderly male. Lying in bed, looks comfortable. EXTREMITIES: Examination of the right hip reveals the dressing to be clean, dry and intact. Hip is located. Leg lengths are equal. He is neurologically intact. ASSESSMENT: A 74-year-old gentleman postop day 2 from right hip replacement, doing well. Pain is controlled. Hip is located. He is neurologically intact. Did have episodes of confusion which he has had problems with, but seems to be doing well this morning. PLAN: 1. DVT prophylaxis include thigh-high TEDs, SCDs, and aspirin twice a day. 2. PT/OT, weightbear as tolerated. Right total hip protocol. 3. Pain control, doing well with current pain regimen. We are really going to try and limit narcotics to avoid confusion. 4. Disposition: Plan to discharge to home with some home health likely later today.
[2019-09-21] MEDS: ASCORBIC ACID 500 MG TAB PO SCH (09:45)
[2019-09-21] MEDS: MULTIVITAMIN TAB PO SCH (09:46)
[2019-09-21] MEDS: DOCUSATE SODIUM 100 MG CAP PO SCH (09:46)
[2019-09-21] MEDS: ASPIRIN 81 MG ECTAB PO SCH (09:46)
[2019-09-21] MEDS: CEROVITE ADV FORMULA TAB PO SCH (09:47)
[2019-09-21] MEDS: CYANOCOBALAMIN (VITAMIN B-12) 2,500 MCG TAB.SUBL SL SCH (09:47)
[2019-09-21] MEDS: lisinopriL 20 MG TAB PO SCH (09:47)
--- NOTE | 2019-09-21 10:49 | Electrocardiogram Report ---
Test Reason : Blood Pressure : / mmHG Vent. Rate : 079 BPM Atrial Rate : 079 BPM P-R Int : 176 ms QRS Dur : 156 ms QT Int : 446 ms P-R-T Axes : 047 -29 137 degrees QTc Int : 511 ms Normal sinus rhythm with sinus arrhythmia Left bundle branch block Abnormal ECG No previous ECGs available Confirmed by Omar Umaña ([id number]) on 09/21/2019 10:49:11 AM Referred By: Venkata Delacruz Confirmed By:Fabio Umaña
[2019-09-21] MEDS ORDERED: bisacodyL 10 MG SUPP PR STA (11:56)
[2019-09-21] MEDS: METOPROLOL SUCC 50MG EXT REL TAB PO SCH (12:04)
--- NOTE | 2019-09-21 15:16 | Hospitalist Progress Note ---
Date of Service September 21, 2019 Assessment & Plan (1) Delirium: (1) Delirium: Delirium, secondary to hospital setting, lack of sleep and pain. reports baseline cognitive decline at home, no formal diagnosis. - WBC wnl, afebrile, no urinary symptoms - encouraged to turn off lights at night and reorient patient as needed - EKG ordered - known LBBB - Will order BC and urine culture to ensure no brewing infection may be behind the delirium. Lungs sound clear to auscultation, saturating 94% on RA. Agree with Dr. Delacruz's assessment that patient's delirium will not likely improve until he is home. Discussed with patient's as to her comfort level being able to take care of her in his current mental status and she feels confident she can care for him at home. I don't think cultures need to hold up discharge, can follow and inform patient if something grow, but will defer that decision to surgery (2) Hypertension: - continue Lisinopril and metoprolol Succinate (3) Left bundle branch block (LBBB): Noted again on EKG this admission as on previous readings. (4) Chronic systolic (congestive) heart failure: Does not appear to be in exacerbaton. Sats 94% on RA Continue ASA, lisinopril, metoprolol (5) Constipation: resolved Admission and Anticipated Discharge Date Admission Date: September 19, 2019 Subjective Mr. Olsen is calm but disoriented beyond self. He can follow most commands but has trouble holding attention. He denies pain ROS Constitutional: no chills, aches, sweats or fever Respiratory: no sob,cough, sputum, or wheezing Cardiac: no chest pain, palpitations, edema, orthopnea or lightheadedness GI: no abdominal pain, nausea, vomiting, diarrhea or constipation : no dysuria or hesitancy Extremities: no joint pain or weakness Skin: no rash All other systems reviewed and negative Physical Exam Physical Exam: General: no distress Eyes: normal inspection, PERLL Respiratory: chest non tender, clear to auscultation, normal breath sounds, no respiratory distress, no accessory muscle use Cardiac: regular rate and rhythm, no rub or gallop, no murmur, no edema, no jvd GI/: active bowel sounds, no abd pain or tenderness, soft, non distended Extremities: normal range of motion, normal strength, non tender Neuro/Psych: alert and oriented x 3, normal mood and affect, CN II - XII intact with some attention difficulties when examining EOEM. No drift, strength equal upper extremities Skin: normal color, dry Results & Data Results & Data ([facility]) Vital Signs (Past 12 Hours) Vital Signs Temp Pulse Pulse Resp BP BP Pulse Ox 09/21/19 14:40 36.9 C 81 16 129/70 94 09/21/19 12:04 160/54 H 09/21/19 11:25 37 C 64 66 16 139/57 L 161/72 H 95 09/21/19 09:47 95 09/21/19 07:53 37 C 66 16 161/72 H 97 PG Care Time/CCT Total # of Minutes Spent Total Time Spent with Patient: Total time spent is greater than 50% in coordination of care (as documented) at patient's floor/unit and/or counseling patient: Coding Level of Care Code 90019 Subseq Hosp Care Lvl 3 Diagnoses Delirium R41.0 Hypertension I10 Left bundle branch block (LBBB) I44.7 Chronic systolic (congestive) heart failure I50.22 Constipation K59.00
[2019-09-21 16:04] LABS: Appearance Urine Clear (Clear); Bacteria Urine Automated Negative (Negative); Bilirubin Urine Negative (Negative); Blood Urine Negative (Negative); Color Urine Dark Yellow; Glucose Urine UA Negative (Negative); Ketones Urine Trace (Negative); Leukocyte Esterase Urine Negative (Negative); Nitrite Urine Negative (Negative); Protein Urine Trace (Negative); RBC Urine Automated 0-4 /hpf (0-4); Specific Gravity Urine 1.027 (1.000-1.030); Urobilinogen Urine Negative (Negative)
--- NOTE | 2019-09-27 07:49 | Discharge Summary ---
Date of Service September 27, 2019 Admission HPI Per Admitting Provider Documented in the H&P Admission Exam (Per Admitting) Constitutional Documented in the H&P Discharge Data Consultations 09/20/19 08:00 Consult Case Management - Discharge Planning Routine 09/20/19 19:19 Consult Hospitalist Routine Procedures Performed Operation Date: 09/19/19 09:05 Actual Procedures p Right Total Hip Arthroplasty--Uncemented(Right) - Venkata Delacruz MD Hospital Course (1) S/P total hip arthroplasty: 74-year-old male admitted on 09/19/2019 underwent total hip placement. He was transferred to the PACU postoperatively later the orthopedic for further care. He was given Ancef for antibiotic prophylaxis. Is given ROSAURA stockings, SCDs, and aspirin for DVT prophylaxis. His hemoglobin, hematocrit, and vital signs were monitored during his hospital stay and remained stable. He did not require any blood transfusions. He did have some postoperative delirium and the hospital service was consulted. There were no complications during his hospital stay. By postoperative day 2 he was tolerating a regular diet, pain was controlled with oral pain medicine, and is participating in physical therapy. Postop day 2 was discharged home set up with home health services. Given printed discharge instructions as well as new prescriptions for extra strength Tylenol and as pirin. Continue physical therapy. He is weightbearing as tolerated. Continue total hip precautions ROSAURA stockings. Follow-up approximately 2 weeks postop or sooner if any problems or concerns. Coding Level of Care Code None Diagnoses S/P total hip arthroplasty Z96.649
== END 2019-09-21 16:21 | disposition home health service (06) ==
LOC: ASU 06:46 → 3E 06:46 → SUATTDRO 10:40
DX: Z11.59 Encounter for screening for other viral diseases; Z88.8 Allergy status to other drugs, medicaments and biological substances; I44.7 Left bundle-branch block, unspecified; R41.3 Other amnesia; Z79.899 Other long term (current) drug therapy; M19.90 Unspecified osteoarthritis, unspecified site; I10 Essential (primary) hypertension; I50.20 Unspecified systolic (congestive) heart failure; M16.11 Unilateral primary osteoarthritis, right hip; Z88.5 Allergy status to narcotic agent; I42.8 Other cardiomyopathies; Z82.49 Family history of ischemic heart disease and other diseases of the circulatory system

== ENCOUNTER 2023-11-18 13:56 | Inpatient (IN) ==
--- NOTE | 2023-11-18 14:11 | Emergency Department Note ---
Impression & Plan Syncope, Alzheimer's dementia, BPH (benign prostatic hyperplasia) ED Provider Note Provider: Raj Dougherty MD DATE OF SERVICE: 11/18/2023 CHIEF COMPLAINT: Unresponsive episode HISTORY OF PRESENT ILLNESS: Patient is a 78-year-old gentleman history of A-fib, BPH, heart failure by report and unfortunately fairly advanced dementia presented via ambulance from his home. Was his normal self earlier. No recent illness. Around lunchtime sat in his chair and eyes closed and he went unresponsive for almost 15 minutes according to . Patient does not have memory of this. EMS was activated. They noted his heart rate to be into the 40s and his blood pressure to be in the 70 systolic. Given some IV fluid prior to arrival. Patient is awake and alert upon arrival but not oriented. Family states his mental status however is sort of his baseline although he is a bit drowsy. He states normally he is very fidgety and up and abdomen moving. No vomiting reported or generalized seizure activity. He was evidently somewhat sweaty during this event. Did start a new prostate medicine yesterday as he has been having difficulty going to the bathroom. Is on tamsulosin and just under finasteride. Not on blood thinners for A-fib as there is concerns for fall risk. Patient himself is unable to give me much of a history. Denies pain to me. Seems to be moving every extremity and follows most commands. When asked certain questions he does not seem to answer and looks away. PAST MEDICAL HISTORY: As noted above MEDICATIONS: Reviewed home medications SOCIAL HISTORY: PHYSICAL EXAM: GENERAL: alert in no acute distress on stretcher, knows his in the room but unable to tell me the year or his birthday. Thinks [place] Head: normocephalic and atraumatic EYES: No injection, discharge or icterus. PERRL, EOMI. NECK: Trachea midline. Supple. ENT: Mucous membranes pink and moist. LUNGS: Airway patent. No retractions. Breath sounds clear with good air entry bilaterally. HEART: Irregular irregular rate and rhythm. No chest wall tenderness ABDOMEN: Soft and non-tender, without guarding or rebound. SKIN: Acyanotic, warm, dry, without rashes EXTREMITIES: Without swelling, tenderness or deformity NEUROLOGICAL: No focal deficits with good strength and tone in the extremities.. No aphasia. No facial droop or slurred speech. EK bpm atrial fibrillation with left bundle branch block. No acute ST segment elevation with a QTc of 551. Left axis noted. CONTINUOUS CARDIAC MONITORING: was ordered and showed a heart rate of 50s to 80s bpm in A-fib Patient's laboratory studies and imaging reviewed. Differential includes Infection, dehydration, metabolic abnormality, hypo/hyperglycemia, electrolyte disturbance, anemia, hypoxia, cardiac sources, intracerebral event, toxicologic, neurologic, as well as other pathologies. IMPRESSION/MEDICAL DECISION MAKING: Unclear exactly what this unresponsive episode was. It was syncope but it does not sound like seizure. No significant focal deficit this time lower suspicion for CVA. Blood pressure 90s to 100 systolic here and did receive 500 cc of IV fluid. Chest x-ray is unremarkable per radiology no significant cytosis or anemia here. Procalcitonin is really low and I doubt infection. Troponin at 20.5 is chronic. No significant lecture light abnormality signs of renal dysfunction. No transaminitis noted. TSH normal. Again easily alert and answers some questions but again according to family does not seem to be his normal up and at himself. They are surprised he is not more active and trying to get out of bed. Discussed with him reassuring findings at this time and CT of the head per radiology is reassuring without acute findings of bleed or stroke changes. Unsure what this was could be possible hypotension from blood pressure starting the finasteride. In shared decision-making with family however given that he is not back to his baseline and there is can be what appear to be mobility issues as he is not is up and mobile I do not feel comfortable taking him home. Discussed with him staying and further observation and workup and possible case management involvement for additional assistance at home. Discussed possibility/risks of delirium or sundowning in the hospital and they understand this but in shared decision make agreeable with hospitalist consultation for further evaluation here. DIAGNOSIS: Syncope, dementia DISPOSITION: Hospitalist will evaluate Family agreeable with this plan. Past Med/Surg History Problem List (Updated 11/18/23 @ 18:57 by Raj Dougherty M.D.) Syncope (Acute) Unresponsive episode Sundowning Hypotension New onset a-fib BPH (benign prostatic hyperplasia) (Acute) Risk for falls General weakness Aggression Positive SYED (antinuclear antibody) Alzheimer's dementia (Acute) Arthritis Urinary frequency Bradycardia "Drug-induced"-- metoprolol - told to hold if HR <50. 10/14/21 to ER with HR 32. Metoprolol reduced to 25 mg daily Pre-diabetes Cold hands Bluish skin discoloration Swallowing dysfunction Reactive airway disease Wheezing Vertigo Ataxia Vascular dementia Poor vision Fatigue Requires assistance with activities of daily living (ADL) Shuffling gait S/P total hip arthroplasty 09/19/19 Dr. Venkata Delacruz- Right, uncemented Hypertension (Chronic) Left bundle branch block (LBBB) (Chronic) Non-ischemic cardiomyopathy (Chronic) Chronic systolic (congestive) heart failure Hypercholesterolemia Medical History Degenerative joint disease of right hip Nonischemic cardiomyopathy Systolic heart failure Left bundle-branch block Surgical History H/O bilateral hip replacements History of joint replacement History of left hip replacement Hx of inguinal hernia surgery (01/23/19) History of anesthesia reaction H/O circumcision History of excision of pilonidal cyst History of carpal tunnel surgery of left wrist History of back surgery Family History Mother Hypertension Father Heart disease Brother Heart disease Other Dementia No family history of adverse response to anesthesia Denies family history of Ovarian cancer Prostate cancer Diabetes Coronary heart disease Myocardial infarction Breast cancer Colorectal cancer Cancer Stroke Social History Smoking Status: Never smoker Second Hand Exposure: No; Do You Dip or Chew Tobacco: No; Hx Alcohol Use: No Hx Substance Use: No Preferred Language: Macedonian Communication Ability: Impaired Communication Ability Comment: Melody of dementia Tree Worker Required: No Beliefs That Will Affect Care: None and Orthodoxy Orthodoxy Beliefs: SCIENTOLOGY marital status: Current Living Situation: Spouse current occupational status: retired How many Children do You have: 4 Feels Safe at Home: Yes Childhood Exposure to Second-Hand Smoke: No Diet: regular caffeine: No Dental Care, Regularly: No Physical Activity Frequency: 3-4 Times per Week Seatbelt Use: always Sunscreen Use: No Assistive Devices: Denture - Upper Allergies Allergies Allergy/AdvReac Type Severity Reaction Status Date / Time aripiprazole [From [facility]] Allergy Severe sudoparkiso Verified 11/18/23 16:46 n prednisone Allergy Severe AGITATION Verified 11/18/23 16:46 WITH HIGH DOSES--LOW DOSE OKAY. tramadol Allergy Severe hallucianti Verified 11/18/23 16:46 ons mirtazapine AdvReac Severe Confusion Verified 11/18/23 16:46 Home Meds Home Medications Medication Instructions Recorded Confirmed multivitamin 1 tab PO DAILY 03/20/21 11/18/23 aspirin 81 mg tablet,delayed 81 mg PO DAILY 11/18/23 11/18/23 release memantine 10 mg tablet 10 mg PO BID 11/18/23 11/18/23 rivastigmine 9.5 mg/24 hour 9.5 mg transdermal QAM 11/18/23 11/18/23 transdermal patch Previous Rx's Medication Instructions Recorded albuterol sulfate 2.5 mg/3 mL 2.5 mg (3 mL) inhalation QID PRN 04/21/22 (0.083 %) solution for nebulization shortness of breath or wheezing #90 mL metoprolol succinate 25 mg 25 mg PO DAILY #90 tabs 06/15/23 tablet,extended release 24 hr finasteride 5 mg tablet 5 mg PO DAILY #90 tabs 08/08/23 tamsulosin 0.4 mg capsule 0.4 mg PO DAILY #90 caps 08/08/23 clopidogrel 75 mg tablet (Plavix) 75 mg PO DAILY #30 tabs 11/06/23 Results & Data (ED) Vital Signs Vital Signs - 24 hr 11/18/23 14:05 11/18/23 14:12 11/18/23 14:15 Temperature 36.6 C Temperature Source Oral Pulse Rate 65 Pulse Rate [Apical] 67 Pulse Rhythm [Apical] Respiratory Rate 16 12 Blood Pressure 97/66 L Blood Pressure [Right Arm] 91/68 L Blood Pressure Mean 76 Blood Pressure Mean [Right Arm] 75 Pulse Oximetry 100 99 97 Oxygen Delivery Method Room Air Room Air Room Air Sepsis Recent Fever Within 48 Hours No Sepsis New/Unexplained Change in Mental Status No Sepsis Action Taken by Nursing No Action Required 11/18/23 14:15 11/18/23 15:29 Temperature Temperature Source Pulse Rate 60 Pulse Rate [Apical] 70 Pulse Rhythm [Apical] Irregular Respiratory Rate 15 Blood Pressure Blood Pressure [Right Arm] 102/68 Blood Pressure Mean Blood Pressure Mean [Right Arm] 79 Pulse Oximetry 94 Oxygen Delivery Method Room Air Sepsis Recent Fever Within 48 Hours Sepsis New/Unexplained Change in Mental Status Sepsis Action Taken by Nursing Laboratory Data 11/18/23 14:15 11/18/23 14:15 Lab Results 11/18/23 Range/Units 14:15 WBC 6.32 (4.8-10.8) K/ul RBC 5.08 (4.70-6.10) M/uL Hgb 15.2 (14.0-18.0) g/dl Hct 46.4 (42.0-52.0) % MCV 91.3 (80.0-100.0) fL MCH 29.9 (25.0-34.0) pg MCHC 32.8 (32.0-36.0) g/dL RDW Std Deviation 39.3 (36.4-46.3) fL RDW Coeff of Zoe 11.8 (11.5-14.5) % Plt Count 157 (130-400) K/uL MPV 10.6 (9.4-12.4) fL Immature Gran % (Auto) 0.6 % Neut % (Auto) 71.8 % Lymph % (Auto) 17.9 % Caroline % (Auto) 6.8 % Eos % (Auto) 2.4 % Baso % (Auto) 0.5 % Neut # (Auto) 4.54 (1.40-6.50) K/uL Lymph # (Auto) 1.13 L (1.20-3.40) K/uL Caroline # (Auto) 0.43 (0.11-0.59) K/uL Eos # (Auto) 0.15 (0.00-0.50) K/uL Baso # (Auto) 0.03 (0.00-0.20) K/uL Immature Gran # (Auto) 0.04 (0.01-0.20) K/uL PT 11.3 (9.0-12.0) Seconds INR 1.0 (0.9-1.1) Sodium 143 (136-145) mmol/L Potassium 4.5 (3.5-5.1) mmol/L Chloride 106 (98-107) mmol/L Carbon Dioxide 33 H (21-32) mmol/L Anion Gap 4 (3-11) BUN 18 (6-23) mg/dl Creatinine 1.17 (0.6-1.4) mg/dl Est Cr Clr Drug Dosing 58.0 ml/min Est GFR ( Amer) 69.3 ml/min Est GFR (Non-Af Amer) 59.8 ml/min BUN/Creatinine Ratio 15.4 (10-20) Glucose 104 H (70-99(Fasting)) mg/dl Calcium 8.5 L (8.6-10.3) mg/dl Magnesium 1.9 (1.7-2.4) mg/dl Total Bilirubin 0.4 (0.2-1.0) mg/dl AST 13 (13-39) U/L ALT 13 (7-52) U/L Alkaline Phosphatase 57 (34-104) U/L Troponin I High Sens 20.5 H (0-20) pg/ml Total Protein 6.1 (6.0-8.3) gm/dl Albumin 3.7 (3.4-5.0) gm/dl Globulin 2.4 L (2.5-4.0) gm/dl Albumin/Globulin Ratio 1.5 (0.9-2) Procalcitonin < 0.02 (0-0.5) ng/ml TSH 3.434 (0.300-4.500) uIu/ml Administered Medications Discontinued Medications Lactated Ringer's (Lr) 1,000 mls @ 999 mls/hr IV .Q1H1M ONE Stop: 11/18/23 17:29 Last Infusion: 11/18/23 17:45 Dose: Infused Documented By: Admin: 11/18/23 16:38 Dose: 999 mls/hr Documented By: EVA Imaging Data Radiologist's Impression: Chest X-Ray 11/18/23 14:09 SINGLE VIEW CHEST CLINICAL HISTORY: Syncope FINDINGS: An AP, portable, upright chest radiograph is compared to study dated 07/26/2023 and correlated with chest CT dated 04/22/2020. The heart is enlarged noting atherosclerotic calcification of the thoracic aorta. The pulmonary vasculature is noncongested. Chronic interstitial thickening is similar to previous. A calcified granuloma is again seen at the left lung base. There is mild bibasilar atelectasis. No airspace consolidation or large pleural effusion is identified. No pneumothorax is seen. The skeletal structures are osteopenic. The bony thorax is grossly intact. IMPRESSION: Cardiomegaly with no active disease in the chest. ACT 112: Negative or not required by law. Electronically signed by: Kevin Dyson M.D. 11/18/2023 3:[address] 11/18/23 14:10 CT SCAN OF THE BRAIN WITHOUT IV CONTRAST CLINICAL HISTORY: Generalized weakness. Syncope. COMPARISON STUDY: CT of the brain dated 12/16/2020. TECHNIQUE: Unenhanced axial CT scan of the brain is performed from the vertex to the skull base. A dose lowering technique was utilized adhering to the principles of ALARA. The patient was scanned twice due to motion artifact. CT DOSE: 1094.1 mGy.cm FINDINGS: Brain parenchyma: There is age-related involutional change noting [id number] subcortical and periventricular microangiopathic disease. There is no hemorrhage, mass effect, or evidence of acute territorial ischemia by CT criteria. Mineralization is noted in the basal ganglia. Bennett-white matter differentiation is preserved. No extra-axial fluid collection is seen. Ventricles, sulci, cisterns: Prominent secondary to involutional change. Intracranial vasculature: There is atherosclerotic calcification of the cavernous carotid and vertebral arteries. Calvarium: Unremarkable. Sinuses and mastoids: The visualized paranasal sinuses are clear. The mastoid air cells are well pneumatized. Orbits: The bony orbits are grossly intact. IMPRESSION: There is no hemorrhage, mass effect, or evidence of acute territorial ischemia by CT criteria. ACT 112: Negative or not required by law. Electronically signed by: Kevin Dyson M.D. 11/18/2023 3:39 PM Discharge Plan Visit Data Chief Complaint: Illness ED Provider: Raj Dougherty Discharge Problem: Syncope, Alzheimer's dementia, BPH (benign prostatic hyperplasia) Patient Disposition: Being Evaluated by Hospitalist Discharge Instructions Interventions: ED Discharge Assessment Last Done: 11/18/23 18:05
[2023-11-18 14:36] LABS: Basophils # (auto) 0.03 K/uL (0.00-0.20); Basophils % (auto) 0.5 %; Eosinophils # (auto) 0.15 K/uL (0.00-0.50); Eosinophils % (auto) 2.4 %; Hematocrit (blood only) 46.4 % (42.0-52.0); Hemoglobin 15.2 g/dl (14.0-18.0); Immature Granulocytes # (auto) 0.04 K/uL (0.01-0.20); Immature Granulocytes % (auto) 0.6 %; Lymphocytes # (auto) 1.13 K/uL (1.20-3.40); Lymphocytes % (auto) 17.9 %; Mean Corpuscular Hemoglobin 29.9 pg (25.0-34.0); Mean Corpuscular Hgb Conc 32.8 g/dL (32.0-36.0); Mean Corpuscular Volume 91.3 fL (80.0-100.0); Mean Platelet Volume 10.6 fL (9.4-12.4); Monocytes # (auto) 0.43 K/uL (0.11-0.59); Monocytes % (auto) 6.8 %; Neutrophils # (auto) 4.54 K/uL (1.40-6.50); Neutrophils % (auto) 71.8 %; Platelet Count 157 K/uL (130-400); RDW Coefficient of Variation 11.8 % (11.5-14.5); RDW Standard Deviation 39.3 fL (36.4-46.3); Red Blood Count 5.08 M/uL (4.70-6.10); White Blood Count 6.32 K/ul (4.8-10.8)
[2023-11-18 14:43] LABS: Prothrombin Time 11.3 Seconds (9.0-12.0)
[2023-11-18 14:52] LABS: Albumin Globulin Ratio 1.5 (0.9-2); Albumin Level 3.7 gm/dl (3.4-5.0); BUN Creatinine Ratio 15.4 (10-20); Bilirubin,Total 0.4 mg/dl (0.2-1.0); Calcium 8.5 mg/dl (8.6-10.3); Est GFR (African American) 69.3 ml/min; Est GFR (Non-African American) 59.8 ml/min; Globulin 2.4 gm/dl (2.5-4.0); Magnesium 1.9 mg/dl (1.7-2.4); Potassium 4.5 mmol/L (3.5-5.1); Total Protein 6.1 gm/dl (6.0-8.3)
[2023-11-18 14:59] LABS: Troponin I High Sensitivity 20.5 pg/ml (0-20)
--- NOTE | 2023-11-18 15:03 | XRay Report ---
SINGLE VIEW CHEST CLINICAL HISTORY: Syncope FINDINGS: An AP, portable, upright chest radiograph is compared to study dated 07/26/2023 and correlate d with chest CT dated 04/22/2020. The heart is enlarged noting atherosclerotic calcification of the th oracic aorta. The pulmonary vasculature is noncongested. Chronic interstitial thickening is similar t o previous. A calcified granuloma is again seen at the left lung base. There is mild bibasilar atelec tasis. No airspace consolidation or large pleural effusion is identified. No pneumothorax is seen. Th e skeletal structures are osteopenic. The bony thorax is grossly intact. IMPRESSION: Cardiomegaly with no active disease in the chest. ACT 112: Negative or not required by law. Electronically signed by: Kevin Dyson M.D. 11/18/2023 3:02 PM
[2023-11-18 15:08] LABS: Thyroid Stimulating Hormone 3.434 uIu/ml (0.300-4.500)
--- NOTE | 2023-11-18 15:41 | CT Scan Report ---
CT SCAN OF THE BRAIN WITHOUT IV CONTRAST CLINICAL HISTORY: Generalized weakness. Syncope. COMPARISON STUDY: CT of the brain dated 12/16/2020. TECHNIQUE: Unenhanced axial CT scan of the brain is performed from the vertex to the skull base. A do se lowering technique was utilized adhering to the principles of ALARA. The patient was scanned twice due to motion artifact. CT DOSE: 1094.1 mGy.cm FINDINGS: Brain parenchyma: There is age-related involutional change noting [id number] subcortical and pe riventricular microangiopathic disease. There is no hemorrhage, mass effect, or evidence of acute ter ritorial ischemia by CT criteria. Mineralization is noted in the basal ganglia. Bennett-white matter dif ferentiation is preserved. No extra-axial fluid collection is seen. Ventricles, sulci, cisterns: Prominent secondary to involutional change. Intracranial vasculature: There is atherosclerotic calcification of the cavernous carotid and vertebr al arteries. Calvarium: Unremarkable. Sinuses and mastoids: The visualized paranasal sinuses are clear. The mastoid air cells are well pneu matized. Orbits: The bony orbits are grossly intact. IMPRESSION: There is no hemorrhage, mass effect, or evidence of acute territorial ischemia by CT nadine rucker. ACT 112: Negative or not required by law. Electronically signed by: Kevin Dyson M.D. 11/18/2023 3:39 PM
--- NOTE | 2023-11-18 16:11 | History & Physical Report ---
Date of Service November 18, 2023 Assessment & Plan (1) Unresponsive episode: Plan: Ad[facility] telemetry on pulse oximetry Currently stable and nontoxic-appearing but fatigued and not back to his known baseline per family Presented to the ED via EMS after patient had an acute episode of unresponsiveness where his eyes rolled to the back of his head and he would not interact with his Last known well is approximately 12:30 PM While patient is currently alert, oriented to self (is his baseline), and will interact during exam, he is significantly fatigued which is not normal for him per family Labs are generally unremarkable thus far however, UA still needs to be obtained Will add full respiratory BioFire due to lymphopenia on CBC Cannot rule out possible arrhythmia as he was noted to be bradycardic on EMS arrival and has known atrial fibrillation Patient is also high risk for possible stroke with his history of atrial fibrillation but being off anticoagulation due to his significantly high fall risk in the past Will give 1 L LR now as he appears slightly dehydrated and has not had much to eat or drink today Will follow UA and full respiratory BioFire Will obtain MRI of the brain without contrast for further evaluation of p ossible CVA Obtain dysphagia screen Fall precautions with bed alarm, aspiration precautions Will wait to order diet until dysphagia screen is obtained Bilateral ROSAURA stockings for DVT prophylaxis AM CBC, CMP, mag, PT/INR (2) General weakness: Plan: Patient is currently too weak to safely return home at this time as he would have to go up approximately 12 steps to get into the house Family explains that their goal is to obtain significantly more care so patient can continue to live at home PT/OT/case management consults have been placed Rest of care per unresponsive episode plan (3) Alzheimer's dementia: Plan: Baseline is oriented to self only but typically active and agitated at times (4) BPH (benign prostatic hyperplasia): Plan: Hold finasteride for now as this was just started yesterday and possibly could be contributing to his hypotension earlier today Will continue home Flomax Will add scheduled bladder scans and as needed straight cath for now (5) A-fib: Plan: Currently in rate controlled A-fib Not on anticoagulation due to significantly high fall risk with his severe dementia Will hold metoprolol for now with his bradycardia, can resume if rate increases during admission Plan The patient was discussed with Dr. Henriquez at the time of the admission History of Present Illness Chief Complaint: Unresponsive episode Primary Care Provider: LEA Turpin Rex is a 78-year-old male with past medical history significant for severe dementia, atrial fibrillation (not on anticoagulation due to significant fall risk), hypertension, Nonischemic cardiomyopathy, and prediabetes who presented to the [facility] ED on 11/18/2023 due to an episode of unresponsiveness witnessed by family. EMS reported the patient to be bradycardic on arrival with heart rate in the 30s to 40s but otherwise stable. He remained stable while in the ED with improving alertness but not back to his normal baseline. Labs including CBC, CMP Pro-Erlin, and TSH were unremarkable. High-sensitivity troponin was elevated at 20.5. CT of the head and brain without contrast and chest x-ray were read as negative for acute findings. EKG shows patient's known atrial fibrillation. We are asked to admit the patient for generalized weakness as he was still too weak for family to safely care for him at home as he will require going approximately 12 steps. Patient was sitting in bed and appears fatigued but no acute distress with his and daughters bedside, history is obtained from family. They confirm that he has a history of severe dementia. At baseline he is only oriented to self but is normally very active and agitated at times. They explained that normally he is up walking around the house and interacting with them. He woke up this a.m. in his normal state of health. His explains that he had his a.m. medications. He was sitting at the kitchen table eating lunch around 12:30 PM and his states that he had sudden onset of unresponsiveness where his eyes rolled to the back of his head and he would not respond to her. She was concerned that he possibly had passed but then noticed that he was moving his fingers and then would whisper responses to her. They do not believe he has had recent fever or chills, he has not complained of chest pain, shortness of breath, has not been coughing, no recent nausea/vomiting, no complaints of abdominal pain, or urinary symptoms, no recent diarrhea, lower extremity swelling, or recent trauma. He does have a long history of urinary retention due to BPH and was started on finasteride yesterday, 11/17/2023. While he is more alert than his initial episode around 1230, they confirmed that he is sig nificantly far from his normal baseline of being alert and very active. They state at his normal baseline he would have tried to get out of bed and leave his ED room multiple times. At this current status his and family would need more time to make arrangements so that he could be safely cared for at home if this were to be his new baseline. They confirm that he is a DNR/DNI and his is his primary decision-maker. Please refer to Dr. Henriquez's attestation for any changes to the treatment plan Allergies Allergy/AdvReac Type Severity Reaction Status Date / Time aripiprazole [From Abilify] Allergy Severe sudoparkiso Verified 11/18/23 16:46 n prednisone Allergy Severe AGITATION Verified 11/18/23 16:46 WITH HIGH DOSES--LOW DOSE OKAY. tramadol Allergy Severe hallucianti Verified 11/18/23 16:46 ons mirtazapine AdvReac Severe Confusion Verified 11/18/23 16:46 Home Medications Medication Instructions Recorded Confirmed Type multivitamin 1 tab PO DAILY 03/20/21 11/18/23 History albuterol sulfate 2.5 mg/3 mL 2.5 mg (3 mL) inhalation QID PRN 04/21/22 11/18/23 Rx (0.083 %) solution for nebulization shortness of breath or wheezing #90 mL finasteride 5 mg tablet 5 mg PO DAILY #90 tabs 08/08/23 11/18/23 Rx tamsulosin 0.4 mg capsule 0.4 mg PO DAILY #90 caps 08/08/23 11/18/23 Rx clopidogrel 75 mg tablet (Plavix) 75 mg PO DAILY #30 tabs 11/06/23 11/18/23 Rx aspirin 81 mg tablet,delayed 81 mg PO DAILY 11/18/23 11/18/23 History release lorazepam 1 mg tablet 1 mg PO HS 11/18/23 11/18/23 History memantine 10 mg tablet 10 mg PO BID 11/18/23 11/18/23 History metoprolol succinate 25 mg 25 mg PO HS 11/18/23 11/18/23 History tablet,extended release 24 hr rivastigmine 9.5 mg/24 hour 9.5 mg transdermal QAM 11/18/23 11/18/23 History transdermal patch Past Med/Surg History Problem List (Updated 11/18/23 @ 18:57 by Raj Dougherty M.D.) Syncope (Acute) Unresponsive episode Sundowning Hypotension New onset a-fib BPH (benign prostatic hyperplasia) (Acute) Risk for falls General weakness Aggression Positive SYED (antinuclear antibody) Alzheimer's dementia (Acute) Arthritis Urinary frequency Bradycardia "Drug-induced"-- metoprolol - told to hold if HR <50. / to ER with HR 32. Metoprolol reduced to 25 mg daily Pre-diabetes Cold hands Bluish skin discoloration Swallowing dysfunction Reactive airway disease Wheezing Vertigo Ataxia Vascular dementia Poor vision Fatigue Requires assistance with activities of daily living (ADL) Shuffling gait S/P total hip arthroplasty 09/19/19 Dr. Venkata Delacruz- Right, uncemented Hypertension (Chronic) Left bundle branch block (LBBB) (Chronic) Non-ischemic cardiomyopathy (Chronic) Chronic systolic (congestive) heart failure Hypercholesterolemia Medical History Degenerative joint disease of right hip Nonischemic cardiomyopathy Systolic heart failure Left bundle-branch block Surgical History H/O bilateral hip replacements History of joint replacement History of left hip replacement Hx of inguinal hernia surgery (01/23/19) History of anesthesia reaction H/O circumcision History of excision of pilonidal cyst History of carpal tunnel surgery of left wrist History of back surgery Family History Mother Hypertension Father Heart disease Brother Heart disease Other Dementia No family history of adverse response to anesthesia Denies family history of Ovarian cancer Prostate cancer Diabetes Coronary heart disease Myocardial infarction Breast cancer Colorectal cancer Cancer Stroke Social History Smoking Status: Never smoker Second Hand Exposure: No; Do You Dip or Chew Tobacco: No; Hx Alcohol Use: No Hx Substance Use: No Preferred Language: Syriac Communication Ability: Impaired Communication Ability Comment: Dementia Electrical Controls Engineer Required: No Beliefs That Will Affect Care: None and Shinto Shinto Beliefs: BAHAI marital status: Current Living Situation: Spouse current occupational status: retired How many Children do You have: 4 Feels Safe at Home: Yes Childhood Exposure to Second-Hand Smoke: No Diet: regular caffeine: No Dental Care, Regularly: No Physical Activity Frequency: 3-4 Times per Week Seatbelt Use: always Sunscreen Use: No Assistive Devices: Denture - Upper Physical Exam Physical Exam: Physical Exam: General: In no acute distress, stated age, fatigued, nontoxic-appearing, currently leaning to the right of the bed while sitting up HEENT: Normocephalic, atraumatic, no scleral icterus, pupils around round, symmetrical, and reactive to light, dry mucus membranes, trachea midline, no thyromegaly Chest/Pulm: No respiratory distress, symmetrical chest expansion, clear breath sounds throughout Cardiac: Irregular rate and rhythm, no murmurs noted Abdomen: Negative for ascites and bruising, normoactive bowel sounds, soft, non-tender to palpation throughout Musculoskeletal: Exam is difficult due to baseline dementia and increased fatigue but patient appears to have symmetrical strength in the bilateral upper and lower extremities, no acute trauma on exam Extremities: Radial, dorsalis pedis, and posterior tibial pulses are intact and symmetrical, no edema noted in the BL LE's Skin: Warm, dry, no rashes , lesions, or scars noted Neuro: Alert and oriented to person only which is his baseline, no focal defects, CN II-XII tested and intact, patient is unable to cooperate with pronator drift and cerebellar testing with his severe dementia, no tremors noted Psych: No acute distress, fatigued, calm and cooperative during the exam Results & Data Results & Data Vital Signs (Past 12 Hours) Vital Signs Temp Pulse Pulse Resp BP BP Pulse Ox 11/18/23 15:29 70 15 102/68 94 11/18/23 14:15 60 11/18/23 14:15 67 12 91/68 L 97 11/18/23 14:12 99 11/18/23 14:05 36.6 C 65 16 97/66 L 100 O2 Del Method 11/18/23 15:29 Room Air 11/18/23 14:15 11/18/23 14:15 Room Air 11/18/23 14:12 Room Air 11/18/23 14:05 Room Air Laboratory Results Abnormal lab results 11/18/23 Range/Units 14:15 Lymph # (Auto) 1.13 L (1.20-3.40) K/uL Carbon Dioxide 33 H (21-32) mmol/L Glucose 104 H (70-99(Fasting)) mg/dl Calcium 8.5 L (8.6-10.3) mg/dl Troponin I High Sens 20.5 H (0-20) pg/ml Globulin 2.4 L (2.5-4.0) gm/dl Diagnostic Findings Chest X-Ray 11/18/23 14:09 SINGLE VIEW CHEST CLINICAL HISTORY: Syncope FINDINGS: An AP, portable, upright chest radiograph is compared to study dated 07/26/2023 and correlated with chest CT dated 04/22/2020. The heart is enlarged noting atherosclerotic calcification of the thoracic aorta. The pulmonary vasculature is noncongested. Chronic interstitial thickening is similar to previous. A calcified granuloma is again seen at the left lung base. There is mild bibasilar atelectasis. No airspace consolidation or large pleural effusion is identified. No pneumothorax is seen. The skeletal structures are osteopenic. The bony thorax is grossly intact. IMPRESSION: Cardiomegaly with no active disease in the chest. ACT 112: Negative or not required by law. Electronically signed by: Kevin Dyson M.D. 11/18/2023 3:[address] 11/18/23 14:10 CT SCAN OF THE BRAIN WITHOUT IV CONTRAST CLINICAL HISTORY: Generalized weakness. Syncope. COMPARISON STUDY: CT of the brain dated 12/16/2020. TECHNIQUE: Unenhanced axial CT scan of the brain is performed from the vertex to the skull base. A dose lowering technique was utilized adhering to the principles of ALARA. The patient was scanned twice due to motion artifact. CT DOSE: 1094.1 mGy.cm FINDINGS: Brain parenchyma: There is age-related involutional change noting [id number] subcortical and periventricular microangiopathic disease. There is no hemorrhage, mass effect, or evidence of acute territorial ischemia by CT criteria. Mineralization is noted in the basal ganglia. Bennett-white matter differentiation is preserved. No extra-axial fluid collection is seen. Ventricles, sulci, cisterns: Prominent secondary to involutional change. Intracranial vasculature: There is atherosclerotic calcification of the cavernous carotid and vertebral arteries. Calvarium: Unremarkable. Sinuses and mastoids: The visualized paranasal sinuses are clear. The mastoid air cells are well pneumatized. Orbits: The bony orbits are grossly intact. IMPRESSION: There is no hemorrhage, mass effect, or evidence of acute territorial ischemia by CT criteria. ACT 112: Negative or not required by law. Electronically signed by: Kevin Dyson M.D. 11/18/2023 3:39 PM ECG Additional Comments: Atrial fibrillation with left bundle branch block unchanged compared to previous EKG Code Status & VTE Plan Code Status DNR/DNI VTE Prophylaxis Plan VTE Prophylaxis will be ordered: Yes Supervising Physician Co-Signing Physician Notes I personally saw and examined the patient. I verified all clifford points and agree with Jonnie Cruz PA-C with the following exceptions and/or additions: 78 year old male with baseline dementia presents to the ER with unresponsive episode while sitting at the table eating. Recently started on finasteride for BPH. O/E HS regular rate, irregular rhythm, no murmurs, Chest CTAB, Abdo SNT, Oriented to self only, moving all 4 extremities, PERRL, no facial droop A/P Unresponsive episode - suspect most likely vasovagal syncope related to recently started finasteride and eating while on metoprolol and tamsulosin in addition. Will restart all these medications to see if it reccurs while on telemetry to rule out heart block given noted to be bradycardic shortly after the event. Orthostatics in AM. Agree with Brain MRI to rule out stroke as unable to complete a good neurological examination given baseline dementia and increased risk due to no anticoagulation with atrial fibrillation. PG Care Time/CCT Total # of Minutes Spent Total Time Spent with Patient: Total time spent is greater than 50% in coordination of care (as documented) at patient's floor/unit and/or counseling patient: C[place] [id number] INT INP/OBS CARE 2/55MIN Patient Type Established Medical Decision Making Moderate Complexity Diagnoses Unresponsive episode R40.4 General weakness R53.1 Severe Alzheimer's dementia with other behavioral disturbance, unspecified timing of dementia onset G30.9; F02.C18 Alzheimer's disease onset: unspecified onset Dementia behavioral or psychological symptom: with other behavioral disturbance Dementia severity: severe BPH (benign prostatic hyperplasia) N40.0 A-fib I48.91 Atrial fibrillation type: unspecified (3) Alzheimer's dementia Alzheimer's disease onset: unspecified onset Dementia behavioral or psychological symptom: with other behavioral disturbance Dementia severity: severe Qualified Code(s): G30.9 - Alzheimer's disease, unspecified; F02.C18 - Dementia in other diseases classified elsewhere, severe, with other behavioral disturbance (5) A-fib Atrial fibrillation type: unspecified Qualified Code(s): I48.91 - Unspecified atrial fibrillation
[2023-11-18] MEDS: LACTATED RINGER'S 1,000 ML IV ONE (16:38)
[2023-11-18 17:36] LABS: Adenovirus PCR Not Detected (NotDetected); Bordetella parapertussis PCR Not Detected (NotDetected); Bordetella pertussis PCR Not Detected (NotDetected); Chlamydia pneumoniae PCR Not Detected (NotDetected); Coronavirus 229E PCR Not Detected (NotDetected); Coronavirus CoV-2 (COVID19)PCR Not Detected (NotDetected); Coronavirus HKU1 PCR Not Detected (NotDetected); Coronavirus NL63 PCR Not Detected (NotDetected); Coronavirus OC43PCR Not Detected (NotDetected); Human Metapneumovirus PCR Not Detected (NotDetected); Influenza A PCR Not Detected (NotDetected); Influenza B PCR Not Detected (NotDetected); Mycoplasma pneumoniae PCR Not Detected (NotDetected); Parainfluenza Virus 1 PCR Not Detected (NotDetected); Parainfluenza Virus 2 PCR Not Detected (NotDetected); Parainfluenza Virus 3 PCR Not Detected (NotDetected); Parainfluenza Virus 4 PCR Not Detected (NotDetected); Respiratory Syncytial VirusPCR Not Detected (NotDetected); Rhinovirus/Enterovirus PCR Not Detected (NotDetected)
[2023-11-18 18:07] LABS: Appearance Urine Clear (Clear); Bacteria Urine Automated None Seen (None Seen); Bilirubin Urine Negative (Negative); Blood Urine Negative (Negative); Color Urine Yellow; Epithelial Cell Urine Auto 0-2 /hpf (0-2); Glucose Urine UA Negative (Negative); Hyaline Casts Urine Present /lpf (None Presnt); Ketones Urine Trace (Negative); Leukocyte Esterase Urine Trace (Negative); Mucus Urine Present (None Prsent); Nitrite Urine Negative (Negative); Protein Urine Trace (Negative); RBC Urine Automated 0-2 /hpf (0-2); Specific Gravity Urine 1.021 (1.000-1.030); Urobilinogen Urine Positive (Negative); WBC Urine Automated 0-5 /hpf (0-5)
[2023-11-18] MEDS: METOPROLOL SUCC 25MG EXT REL TAB PO SCH (21:57)
[2023-11-18] MEDS: MEMANTINE HCL 10 MG TAB PO SCH (21:57)
[2023-11-18] MEDS: LORazepam 1 MG TAB PO SCH (21:57)
[2023-11-19 05:17] LABS: Basophils # (auto) 0.04 K/uL (0.00-0.20); Basophils % (auto) 0.4 %; Eosinophils # (auto) 0.24 K/uL (0.00-0.50); Eosinophils % (auto) 2.7 %; Hematocrit (blood only) 43.3 % (42.0-52.0); Hemoglobin 14.3 g/dl (14.0-18.0); Immature Granulocytes # (auto) 0.03 K/uL (0.01-0.20); Immature Granulocytes % (auto) 0.3 %; Lymphocytes # (auto) 1.81 K/uL (1.20-3.40); Lymphocytes % (auto) 20.3 %; Mean Corpuscular Hemoglobin 29.6 pg (25.0-34.0); Mean Corpuscular Volume 89.6 fL (80.0-100.0); Mean Platelet Volume 11.2 fL (9.4-12.4); Monocytes # (auto) 0.82 K/uL (0.11-0.59); Monocytes % (auto) 9.2 %; Neutrophils # (auto) 5.97 K/uL (1.40-6.50); Neutrophils % (auto) 67.1 %; Platelet Count 144 K/uL (130-400); RDW Coefficient of Variation 11.5 % (11.5-14.5); RDW Standard Deviation 37.2 fL (36.4-46.3); Red Blood Count 4.83 M/uL (4.70-6.10); White Blood Count 8.91 K/ul (4.8-10.8)
[2023-11-19 05:20] LABS: Albumin Globulin Ratio 1.5 (0.9-2); Albumin Level 3.4 gm/dl (3.4-5.0); BUN Creatinine Ratio 16.2 (10-20); Bilirubin,Total 0.7 mg/dl (0.2-1.0); Calcium 8.5 mg/dl (8.6-10.3); Creatinine Clr Calc Pharmacy 68.6 ml/min; Est GFR (African American) 84.8 ml/min; Est GFR (Non-African American) 73.2 ml/min; Globulin 2.2 gm/dl (2.5-4.0); Potassium 3.6 mmol/L (3.5-5.1); Total Protein 5.6 gm/dl (6.0-8.3)
[2023-11-19] MEDS ORDERED: PNEUMOCOCCAL VACCINE (PCV20) 20-VAL CONJ-DIP CRM/PF 0.5 ML SYR IM ONE (09:00)
[2023-11-19] MEDS ORDERED: RIVASTIGMINE TD SCH (09:00)
[2023-11-19] MEDS ORDERED: METOPROLOL SUCC 25MG EXT REL TAB PO SCH (09:00)
[2023-11-19] MEDS: CLOPIDOGREL BISULFATE 75 MG TAB PO SCH (09:30)
[2023-11-19] MEDS: TAMSULOSIN HCL 0.4 MG CAP PO SCH (09:30)
[2023-11-19] MEDS: ASPIRIN 81 MG ECTAB PO SCH (09:30)
[2023-11-19] MEDS: FINASTERIDE 5 MG TAB PO SCH (09:30)
--- NOTE | 2023-11-19 12:01 | Hospitalist Progress Note ---
Date of Service November 19, 2023 Assessment & Plan (1) Unresponsive episode: Plan: Presented to the ED via EMS after patient had an acute episode of unresponsiveness where his eyes rolled to the back of his head and he would not interact with his Last known well is approximately 12:30 PM While patient is currently alert, oriented to self (is his baseline), Labs are generally unremarkable thus far however, UA still needs to be obtained Will add full respiratory BioFire due to lymphopenia on CBC CT head is wnl, MRI brain is pending (2) General weakness: Plan: Patient is currently too weak to safely return home at this time as he would have to go up approximately 12 steps to get into the house Family explains that their goal is to obtain significantly more care so patient can continue to live at home PT/OT/case management consults have been placed Rest of care per unresponsive episode plan (3) Alzheimer's dementia: Plan: -Possibly combination of Alzheimer's dementia and vascular dementia -Follows up with neurology outpatient Baseline is oriented to self only but typically active and agitated at times (4) BPH (benign prostatic hyperplasia): Plan: Hold finasteride for now as this was just started yesterday and possibly could be contributing to his hypotension earlier today Will continue home Flomax Will add scheduled bladder scans and as needed straight cath for now (5) A-fib: Plan: Currently in rate controlled A-fib Not on anticoagulation due to significantly high fall risk with his severe dementia Will hold metoprolol for now with his bradycardia, can resume if rate increases during admission Plan I discussed with the patient's and daughter regarding the long-term goals and plans. The plan to take the patient back home but wanted him to get better physically. They Realize that his cognition is likely not going to improve Admission and Anticipated Discharge Date Admission Date: November 18, 2023 Subjective Patient seen and examined emergency department, he is awake and alert but confused Review of Systems Review of Systems: Unreliable due to confusion and dementia Physical Exam Physical Exam: The patient is awake, confused HEENT--PERRL, EOMI, mucous membranes and oropharynx mildly dry Neck--supple. No JVD. No bruits. Thyroid normal, trachea midline, no adenopathy. Heart--normal S1 and S2. No murmurs, rubs or gallops. Lungs--clear bilaterally, no respiratory distress, no accessory muscle use. Abdomen--normal bowel sounds and soft. Extremities--no cyanosis or clubbing. No edema. Dermatologic--normal skin turgor, normal color, no abnormal lymph nodes, no rash. Neurologic--cranial nerves II through XII grossly intact. some rigididty Rheumatologic--normal range of motion. Psychiatric--normal affect. Results & Data Results & Data Vital Signs (Past 12 Hours) Vital Signs Temp Pulse Pulse Resp BP Pulse Ox O2 Del Method 11/19/23 07:23 63 11/19/23 03:22 82 16 113/72 94 Room Air 11/19/23 03:18 108 H 11/19/23 02:50 98.2 F 84 16 127/87 96 Room Air 11/19/23 00:55 79 PG Care Time/CCT Total # of Minutes Spent Total Time Spent with Patient: Total time spent is greater than 50% in coordination of care (as documented) at patient's floor/unit and/or counseling patient: Coding Level of Care Code 83741 SUB INP/OBS CARE 2/35MIN Diagnoses Unresponsive episode R40.4 General weakness R53.1 Severe Alzheimer's dementia with other behavioral disturbance, unspecified timing of dementia onset G30.9; F02.80 BPH (benign prostatic hyperplasia) N40.0 A-fib I48.91 Atrial fibrillation type: unspecified Time Spent (min) 35 (5) A-fib Atrial fibrillation type: unspecified Qualified Code(s): I48.91 - Unspecified atrial fibrillation
--- NOTE | 2023-11-19 12:51 | Magnetic Resonance Report ---
Brain MRI WITHOUT CONTRAST HISTORY: Unresponsiveness. stroke workup TECHNIQUE: Multiplanar multisequence MRI of the brain was performed without the use of contrast. COMPARISON STUDY: Head CT 11/18/2023. FINDINGS: Motion artifact. There is no mass, hematoma, midline shift, or acute infarct. The mastoid a ir cells are clear. The ventricles and sulci demonstrate moderate age-related involutional changes. S cattered foci of T2 hyperintensity seen within the periventricular and subcortical white matter are n onspecific but suggestive of mild microvascular ischemic changes. The major vascular flow voids at th e skull base are well-maintained. There is a retention cyst within the right maxillary sinus. The orb its are unremarkable. There is an old punctate lacunar infarct within the right cerebellar hemisphere . IMPRESSION: 1. No acute infarct or intracranial hemorrhage. 2. Moderate atrophic changes again noted. ACT 112: Negative or not required by law. Electronically signed by: Yury Owen M.D. 11/19/2023 12:48 PM
[2023-11-19] MEDS ORDERED: Nursing to Pharmacy Communication SCH (19:30)
[2023-11-20 06:11] LABS: Basophils # (auto) 0.04 K/uL (0.00-0.20); Basophils % (auto) 0.5 %; Eosinophils # (auto) 0.29 K/uL (0.00-0.50); Eosinophils % (auto) 3.5 %; Hematocrit (blood only) 42.2 % (42.0-52.0); Hemoglobin 14.3 g/dl (14.0-18.0); Immature Granulocytes # (auto) 0.03 K/uL (0.01-0.20); Immature Granulocytes % (auto) 0.4 %; Lymphocytes # (auto) 1.96 K/uL (1.20-3.40); Lymphocytes % (auto) 23.7 %; Mean Corpuscular Hemoglobin 29.9 pg (25.0-34.0); Mean Corpuscular Hgb Conc 33.9 g/dL (32.0-36.0); Mean Corpuscular Volume 88.3 fL (80.0-100.0); Mean Platelet Volume 10.6 fL (9.4-12.4); Monocytes # (auto) 0.79 K/uL (0.11-0.59); Monocytes % (auto) 9.6 %; Neutrophils # (auto) 5.15 K/uL (1.40-6.50); Neutrophils % (auto) 62.3 %; Platelet Count 153 K/uL (130-400); RDW Coefficient of Variation 11.7 % (11.5-14.5); RDW Standard Deviation 37.6 fL (36.4-46.3); Red Blood Count 4.78 M/uL (4.70-6.10); White Blood Count 8.26 K/ul (4.8-10.8)
[2023-11-20 06:31] LABS: Albumin Globulin Ratio 1.5 (0.9-2); Albumin Level 3.4 gm/dl (3.4-5.0); BUN Creatinine Ratio 17.7 (10-20); Bilirubin,Total 0.7 mg/dl (0.2-1.0); Calcium 8.4 mg/dl (8.6-10.3); Creatinine Clr Calc Pharmacy 70.7 ml/min; Est GFR (Non-African American) 75.9 ml/min; Globulin 2.2 gm/dl (2.5-4.0); Potassium 3.6 mmol/L (3.5-5.1); Total Protein 5.6 gm/dl (6.0-8.3)
[2023-11-20] MEDS: RIVASTIGMINE 9.5 MG TD SCH (07:10)
--- NOTE | 2023-11-20 11:28 | Hospitalist Progress Note ---
Date of Service November 20, 2023 Assessment & Plan (1) Unresponsive episode: Plan: Presented to the ED via EMS after patient had an acute episode of unresponsiveness where his eyes rolled to the back of his head and he would not interact with his While patient is currently alert, oriented to self (is his baseline), Labs are generally unremarkable thus far however, UA still needs to be obtained Will add full respiratory Bio[employer] due to lymphopenia on CBC CT head is wnl, MRI brain did not show any evidence of acute pathology (2) General weakness: Plan: Patient is currently too weak to safely return home at this time as he would have to go up approximately 12 steps to get into the house Family explains that their goal is to obtain significantly more care so patient can continue to live at home PT/OT/case management consults have been placed Rest of care per unresponsive episode plan (3) Alzheimer's dementia: Plan: -Possibly combination of Alzheimer's dementia and vascular dementia -Follows up with neurology outpatient Baseline is oriented to self only but typically active and agitated at times -Since the Alzheimer is worsening, patient's is now more open to placement for him (4) BPH (benign prostatic hyperplasia): Plan: Hold finasteride for now as this was just started yesterday and possibly could be contributing to his hypotension earlier today Will continue home Flomax Will add scheduled bladder scans and as needed straight cath for now (5) A-fib: Plan: Currently in rate controlled A-fib Not on anticoagulation due to significantly high fall risk with his severe dementia Will hold metoprolol for now with his bradycardia, can resume if rate increases during admission Plan I discussed with the patient's and daughter regarding the long-term goals and plans. Patient's is now more open to the idea of placement for him, he will need SNF Admission and Anticipated Discharge Date Admission Date: November 18, 2023 Subjective Patient seen and examined , by the bedside Review of Systems Review of Systems: Unreliable due to confusion and dementia Physical Exam Physical Exam: The patient is awake, confused HEENT--PERRL, EOMI, mucous membranes and oropharynx mildly dry Neck--supple. No JVD. No bruits. Thyroid normal, trachea midline, no adenopathy. Heart--normal S1 and S2. No murmurs, rubs or gallops. Lungs--clear bilaterally, no respiratory distress, no accessory muscle use. Abdomen--normal bowel sounds and soft. Extremities--no cyanosis or clubbing. No edema. Dermatologic--normal skin turgor, normal color, no abnormal lymph nodes, no rash. Neurologic--cranial nerves II through XII grossly intact. some rigididty Rheumatologic--normal range of motion. Psychiatric--normal affect. Results & Data Results & Data Vital Signs (Past 12 Hours) Vital Signs Temp Pulse Pulse Resp BP Pulse Ox O2 Del Method 11/20/23 08:10 64 11/20/23 07:47 97.2 F L 67 16 124/76 90 Room Air 11/20/23 03:43 97.3 F L 72 20 152/93 H 95 Room Air 11/19/23 23:28 98.2 F 66 20 123/85 94 Room Air PG Care Time/CCT Total # of Minutes Spent Total Time Spent with Patient: Total time spent is greater than 50% in coordination of care (as documented) at patient's floor/unit and/or counseling patient: Coding Level of Care Code 66906 SUB INP/OBS CARE 2/35MIN Diagnoses Unresponsive episode R40.4 General weakness R53.1 Severe Alzheimer's dementia with other behavioral disturbance, unspecified timing of dementia onset G30.9; F02.80 BPH (benign prostatic hyperplasia) N40.0 A-fib I48.91 Atrial fibrillation type: unspecified Time Spent (min) 35 (5) A-fib Atrial fibrillation type: unspecified Qualified Code(s): I48.91 - Unspecified atrial fibrillation
[2023-11-21 08:03] LABS: Basophils # (auto) 0.03 K/uL (0.00-0.20); Basophils % (auto) 0.4 %; Eosinophils # (auto) 0.27 K/uL (0.00-0.50); Eosinophils % (auto) 3.2 %; Hematocrit (blood only) 44.9 % (42.0-52.0); Hemoglobin 15.4 g/dl (14.0-18.0); Immature Granulocytes # (auto) 0.03 K/uL (0.01-0.20); Immature Granulocytes % (auto) 0.4 %; Lymphocytes # (auto) 1.77 K/uL (1.20-3.40); Lymphocytes % (auto) 20.9 %; Mean Corpuscular Hemoglobin 29.8 pg (25.0-34.0); Mean Corpuscular Hgb Conc 34.3 g/dL (32.0-36.0); Mean Platelet Volume 10.6 fL (9.4-12.4); Monocytes # (auto) 0.85 K/uL (0.11-0.59); Neutrophils # (auto) 5.51 K/uL (1.40-6.50); Neutrophils % (auto) 65.1 %; Platelet Count 145 K/uL (130-400); RDW Coefficient of Variation 11.4 % (11.5-14.5); RDW Standard Deviation 36.4 fL (36.4-46.3); Red Blood Count 5.16 M/uL (4.70-6.10); White Blood Count 8.46 K/ul (4.8-10.8)
[2023-11-21 08:30] LABS: Albumin Globulin Ratio 1.5 (0.9-2); Albumin Level 3.5 gm/dl (3.4-5.0); BUN Creatinine Ratio 16.5 (10-20); Bilirubin,Total 0.5 mg/dl (0.2-1.0); Calcium 8.7 mg/dl (8.6-10.3); Creatinine Clr Calc Pharmacy 74.6 ml/min; Est GFR (African American) 93.9 ml/min; Globulin 2.4 gm/dl (2.5-4.0); Potassium 3.9 mmol/L (3.5-5.1); Total Protein 5.9 gm/dl (6.0-8.3)
--- NOTE | 2023-11-21 14:27 | Hospitalist Progress Note ---
Date of Service November 21, 2023 Assessment & Plan (1) Unresponsive episode: Plan: Presented to the ED via EMS after patient had an acute episode of unresponsiveness where his eyes rolled to the back of his head and he would not interact with his -Etiology could be due to arrhythmias, on telemetry patient has been experiencing some pauses 1 to 2-second pauses While patient is currently alert, oriented to self (is his baseline), Labs are generally unremarkable thus far however, UA still needs to be obtained CT head is wnl, MRI brain did not show any evidence of acute pathology (2) General weakness: Plan: Patient is currently too weak to safely return home at this time as he would have to go up approximately 12 steps to get into the house Family explains that their goal is to obtain significantly more care so patient can continue to live at home PT/OT/case management consults have been placed Rest of care per unresponsive episode plan (3) Alzheimer's dementia: Plan: -Possibly combination of Alzheimer's dementia and vascular dementia -Follows up with neurology outpatient Baseline is oriented to self only but typically active and agitated at times -Since the Alzheimer is worsening, patient's is now more open to placement for him (4) BPH (benign prostatic hyperplasia): Plan: Hold finasteride for now as this was just started yesterday and possibly could be contributing to his hypotension earlier today Will continue home Flomax Will add scheduled bladder scans and as needed straight cath for now (5) A-fib: Plan: Currently in rate controlled A-fib Not on anticoagulation due to significantly high fall risk with his severe dementia Will hold metoprolol for now with his bradycardia, can resume if rate increases during admission (6) Parkinsonian features: Plan: Patient has some parkinsonian features, like for more testing on patient diagnosed suspect he has some Parkinson's. Outpatient follow-up with neurology Plan I discussed with the patient's and daughter regarding the long-term goals and plans. Patient's is now more open to the idea of placement for him, he will need SNF Admission and Anticipated Discharge Date Admission Date: November 18, 2023 Subjective Patient seen and examined , by the bedside Review of Systems 2 Review of Systems: Unreliable due to confusion and dementia Physical Exam Physical Exam: The patient is awake, confused HEENT--PERRL, EOMI, mucous membranes and oropharynx mildly dry Neck--supple. No JVD. No bruits. Thyroid normal, trachea midline, no adenopa thy. Heart--normal S1 and S2. No murmurs, rubs or gallops. Lungs--clear bilaterally, no respiratory distress, no accessory muscle use. Abdomen--normal bowel sounds and soft. Extremities--no cyanosis or clubbing. No edema. Dermatologic--normal skin turgor, normal color, no abnormal lymph nodes, no rash. Neurologic--cranial nerves II through XII grossly intact. some rigididty Rheumatologic--normal range of motion. Psychiatric--normal affect. Results & Data Results & Data Vital Signs (Past 12 Hours) Vital Signs Temp Pulse Pulse Resp BP Pulse Ox O2 Del Method 11/21/23 14:03 66 11/21/23 11:25 97.9 F 74 18 117/80 96 Room Air 11/21/23 07:39 97.5 F L 66 18 124/72 95 Room Air 11/21/23 07:26 72 PG Care Time/CCT Total # of Minutes Spent Total Time Spent with Patient: Total time spent is greater than 50% in coordination of care (as documented) at patient's floor/unit and/or counseling patient: Coding Level of Care Code 02468 SUB INP/OBS CARE 2/35MIN Diagnoses Unresponsive episode R40.4 General weakness R53.1 Severe Alzheimer's dementia with other behavioral disturbance, unspecified timing of dementia onset G30.9; F02.80 BPH (benign prostatic hyperplasia) N40.0 A-fib I48.91 Atrial fibrillation type: unspecified Parkinsonian features R29.818 Time Spent (min) 35 (5) A-fib Atrial fibrillation type: unspecified Qualified Code(s): I48.91 - Unspecified atrial fibrillation
[2023-11-22 06:36] LABS: Hematocrit (blood only) 46.1 % (42.0-52.0); Hemoglobin 15.4 g/dl (14.0-18.0); Mean Corpuscular Hemoglobin 29.3 pg (25.0-34.0); Mean Corpuscular Hgb Conc 33.4 g/dL (32.0-36.0); Mean Corpuscular Volume 87.8 fL (80.0-100.0); Mean Platelet Volume 10.9 fL (9.4-12.4); Platelet Count 162 K/uL (130-400); RDW Coefficient of Variation 11.6 % (11.5-14.5); RDW Standard Deviation 37.4 fL (36.4-46.3); Red Blood Count 5.25 M/uL (4.70-6.10); White Blood Count 8.91 K/ul (4.8-10.8)
[2023-11-22 07:04] LABS: BUN Creatinine Ratio 20.9 (10-20); Calcium 8.6 mg/dl (8.6-10.3); Est GFR (African American) 96.9 ml/min; Est GFR (Non-African American) 83.6 ml/min; Potassium 3.6 mmol/L (3.5-5.1)
--- NOTE | 2023-11-22 12:16 | Hospitalist Progress Note ---
Date of Service November 22, 2023 Assessment & Plan (1) Unresponsive episode: Plan: Presented to the ED via EMS after patient had an acute episode of unresponsiveness where his eyes rolled to the back of his head and he would not interact with his -Etiology could be due to arrhythmias, on telemetry patient has been experiencing some pauses 1 to 2-second pauses While patient is currently alert, oriented to self (is his baseline), Labs are generally unremarkable thus far however, CT head is wnl, MRI brain did not show any evidence of acute pathology (2) General weakness: Plan: Patient is currently too weak to safely return home at this time as he would have to go up approximately 12 steps to get into the house Family explains that their goal is to obtain significantly more care so patient can continue to live at home PT/OT/case management consults have been placed Rest of care per unresponsive episode plan (3) Alzheimer's dementia: Plan: -Possibly combination of Alzheimer's dementia and vascular dementia -Follows up with neurology outpatient Baseline is oriented to self only but typically active and agitated at times -Since the Alzheimer is worsening, patient's is now more open to placement for him (4) BPH (benign prostatic hyperplasia): Plan: Hold finasteride for now as this was just started yesterday and possibly could be contributing to his hypotension earlier today Will continue home Flomax Will add scheduled bladder scans and as needed straight cath for now (5) A-fib: Plan: Currently in rate controlled A-fib Not on anticoagulation due to significantly high fall risk with his severe dementia Will hold metoprolol for now with his bradycardia, can resume if rate increases during admission (6) Parkinsonian features: Plan: Patient has some parkinsonian features, like for more testing on patient diagnosed suspect he has some Parkinson's. Outpatient follow-up with neurology Plan I discussed with the patient's and daughter regarding the long-term goals and plans. Patient's is now more open to the idea of placement for him, he will need SNF Admission and Anticipated Discharge Date Admission Date: November 18, 2023 Subjective Patient seen and examined , by the bedside, was having breakfast through a feeding environmental emergencies assistant Review of Systems Review of Systems: Unreliable due to confusion and dementia Physical Exam Physical Exam: The patient is awake, confused HEENT--PERRL, EOMI, mucous membranes and oropharynx mildly dry Neck--supple. No JVD. No bruits. Thyroid normal, trachea midline, no adenopathy. Heart--normal S1 and S2. No murmurs, rubs or gallops. Lungs--clear bilaterally, no respiratory distress, no accessory muscle use. Abdomen--normal bowel sounds and soft. Extremities--no cyanosis or clubbing. No edema. Dermatologic--normal skin turgor, normal color, no abnormal lymph nodes, no rash. Neurologic--cranial nerves II through XII grossly intact. some rigididty Rheumatologic--normal range of motion. Psychiatric--normal affect. Results & Data Results & Data Vital Signs (Past 12 Hours) Vital Signs Temp Pulse Pulse Resp BP Pulse Ox O2 Del Method 11/22/23 12:08 97.7 F 73 16 120/78 95 Room Air 11/22/23 07:55 96.1 F L 71 20 120/74 93 Room Air 11/22/23 07:26 70 11/22/23 03:42 97.3 F L 68 20 132/88 93 Room Air PG Care Time/CCT Total # of Minutes Spent Total Time Spent with Patient: Total time spent is greater than 50% in coordination of care (as documented) at patient's floor/unit and/or counseling patient: Coding Level of Care Code 76960 SUB INP/OBS CARE 2/35MIN Diagnoses Unresponsive episode R40.4 General weakness R53.1 Severe Alzheimer's dementia with other behavioral disturbance, unspecified timing of dementia onset G30.9; F02.80 BPH (benign prostatic hyperplasia) N40.0 A-fib I48.91 Atrial fibrillation type: unspecified Parkinsonian features R29.818 Time Spent (min) 35 (5) A-fib Atrial fibrillation type: unspecified Qualified Code(s): I48.91 - Unspecified atrial fibrillation
[2023-11-22] MEDS: bisacodyL 10 MG SUPP PR STA (13:10)
--- NOTE | 2023-11-22 15:40 | Electrocardiogram Report ---
Test Reason : Blood Pressure : */* mmHG Vent. Rate : 82 BPM Atrial Rate : * BPM P-R Int : * ms QRS Dur : 142 ms QT Int : 472 ms P-R-T Axes : * -30 156 degrees QTcB Int : 551 ms Atrial fibrillation Left axis deviation Left bundle branch block Abnormal ECG When compared with ECG of 27-Jul-2023 00:30, There is no significant change Confirmed by Boznea Barba ([id number]) on 11/18/2023 2:42:12 PM Referred By: REFERRED SELF Confirmed By: Bozena Barba
[2023-11-22] MEDS: RIVASTIGMINE PATCH TD SCH (20:07)
[2023-11-22] MEDS: [UNRECOGNIZED DRUG - OTHER] SCH (20:07)
--- NOTE | 2023-11-23 06:08 | Electrocardiogram Report ---
Test Reason : Blood Pressure : */* mmHG Vent. Rate : 51 BPM Atrial Rate : 52 BPM P-R Int : * ms QRS Dur : 148 ms QT Int : 498 ms P-R-T Axes : * -54 157 degrees QTcB Int : 458 ms Atrial fibrillation with slow ventricular response Left axis deviation Left bundle branch block Abnormal ECG When compared with ECG of 18-Nov-2023 14:05, Vent. rate has decreased by 31 bpm Confirmed by Ubaldo Gilbert ([id number]) on 11/23/2023 6:08:11 AM Referred By: REFERRED SELF Confirmed By: Ubaldo Gilbert
[2023-11-23] MEDS: RIVASTIGMINE PATCH TD SCH (20:12)
[2023-11-24] MEDS: PNEUMOCOCCAL VACCINE (PCV20) 20-VAL CONJ-DIP CRM/PF 0.5 ML SYR IM ONE (19:20)
[2023-11-24] MEDS: [UNRECOGNIZED DRUG - OTHER] SCH (20:06)
[2023-11-24] MEDS: RIVASTIGMINE PATCH TD SCH (20:25)
--- NOTE | 2023-11-25 11:02 | Hospitalist Progress Note ---
Date of Service November 25, 2023 Assessment & Plan (1) Unresponsive episode: Plan: Presented to the ED via EMS after patient had an acute episode of unresponsiveness where his eyes rolled to the back of his head and he would not interact with his -Etiology could be due to arrhythmias, on telemetry patient has been experiencing some pauses 1 to 2-second pauses While patient is currently alert, oriented to self (is his baseline), Labs are generally unremarkable thus far however, CT head is wnl, MRI brain did not show any evidence of acute pathology (2) General weakness: Plan: Patient is currently too weak to safely return home at this time as he would have to go up approximately 12 steps to get into the house Family explains that their goal is to obtain significantly more care so patient can continue to live at home He is participating in physical therapy, although he is a 1 person assist (3) Alzheimer's dementia: Plan: -Possibly combination of Alzheimer's dementia and vascular dementia -Follows up with neurology outpatient Baseline is oriented to self only but typically active and agitated at times -Since the Alzheimer is worsening, patient's is now more open to placement for him (4) BPH (benign prostatic hyperplasia): Plan: Hold finasteride for now as this was just started yesterday and possibly could be contributing to his hypotension earlier today Will continue home Flomax Will add scheduled bladder scans and as needed straight cath for now (5) A-fib: Plan: Currently in rate controlled A-fib Not on anticoagulation due to significantly high fall risk with his severe dementia Will hold metoprolol for now with his bradycardia, can resume if rate increases during admission (6) Parkinsonian features: Plan: Patient has some parkinsonian features, like for more testing on patient diagnosed suspect he has some Parkinson's. Outpatient follow-up with neurology Plan wishes to take him home eventually however she is open to a short rehab stay in a SNF facility. No bed offers available for now Admission and Anticipated Discharge Date Admission Date: November 18, 2023 Subjective Patient seen and examined , he is confused, so not able to provide any reasonable answers Review of Systems Review of Systems: Unreliable due to confusion and dementia Physical Exam Physical Exam: The patient is awake, confused HEENT--PERRL, EOMI, mucous membranes and oropharynx mildly dry Neck--supple. No JVD. No bruits. Thyroid normal, trachea midline, no adenopathy. Heart--normal S1 and S2. No murmurs, rubs or gallops. Lungs--clear bilaterally, no respiratory distress, no accessory muscle use. Abdomen--normal bowel sounds and soft. Extremities--no cyanosis or clubbing. No edema. Dermatologic--normal skin turgor, normal color, no abnormal lymph nodes, no rash. Neurologic--cranial nerves II through XII grossly intact. some rigididty Rheumatologic--normal range of motion. Psychiatric--normal affect. Results & Data Results & Data Vital Signs (Past 12 Hours) Vital Signs Temp Pulse Pulse Resp BP Pulse Ox O2 Del Method 11/25/23 10:47 Room Air 11/25/23 07:32 97.7 F 59 L 16 138/71 96 Room Air 11/25/23 06:47 67 11/25/23 03:48 97.9 F 96 H 20 105/72 92 Room Air 11/25/23 00:20 98.4 F 97 H 20 129/79 92 Room Air PG Care Time/CCT Total # of Minutes Spent Total Time Spent with Patient: Total time spent is greater than 50% in coordination of care (as documented) at patient's floor/unit and/or counseling patient: Coding Level of Care Code 66954 SUB INP/OBS CARE 2/35MIN Diagnoses Unresponsive episode R40.4 General weakness R53.1 Severe Alzheimer's dementia with other behavioral disturbance, unspecified timing of dementia onset G30.9; F02.80 BPH (benign prostatic hyperplasia) N40.0 A-fib I48.91 Atrial fibrillation type: unspecified Parkinsonian features R29.818 Time Spent (min) 35 (5) A-fib Atrial fibrillation type: unspecified Qualified Code(s): I48.91 - Unspecified atrial fibrillation
[2023-11-26 07:08] LABS: Hematocrit (blood only) 43.2 % (42.0-52.0); Hemoglobin 15.1 g/dl (14.0-18.0); Mean Corpuscular Hemoglobin 30.1 pg (25.0-34.0); Mean Corpuscular Volume 86.2 fL (80.0-100.0); Mean Platelet Volume 10.8 fL (9.4-12.4); Platelet Count 180 K/uL (130-400); RDW Coefficient of Variation 11.6 % (11.5-14.5); RDW Standard Deviation 36.4 fL (36.4-46.3); Red Blood Count 5.01 M/uL (4.70-6.10); White Blood Count 8.42 K/ul (4.8-10.8)
[2023-11-26 07:38] LABS: BUN Creatinine Ratio 25.6 (10-20); Calcium 8.6 mg/dl (8.6-10.3); Creatinine Clr Calc Pharmacy 75.4 ml/min; Est GFR (African American) 95.1 ml/min; Est GFR (Non-African American) 82.1 ml/min; Potassium 3.9 mmol/L (3.5-5.1)
--- NOTE | 2023-11-26 15:30 | Hospitalist Progress Note ---
Date of Service November 26, 2023 Assessment & Plan (1) Unresponsive episode: Plan: Presented to the ED via EMS after patient had an acute episode of unresponsiveness where his eyes rolled to the back of his head and he would not interact with his -Etiology could be due to arrhythmias, on telemetry patient has been experiencing some pauses 1 to 2-second pauses Patient has been resumed on metoprolol because of rising heart rate off of metoprolol. Discussed pacemaker as an option with his and daughter. Given his advanced dementia, family is not too keen on a procedure. They declined pacemaker placement. While patient is currently alert, oriented to self (is his baseline), Labs are generally unremarkable thus far however, CT head is wnl, MRI brain did not show any evidence of acute pathology (2) General weakness: Plan: Patient is currently too weak to safely return home at this time as he would have to go up approximately 12 steps to get into the house Family explains that their goal is to obtain significantly more care so patient can continue to live at home He is participating in physical therapy, although he is a 1 person assist (3) Alzheimer's dementia: Plan: -Possibly combination of Alzheimer's dementia and vascular dementia -Follows up with neurology outpatient Baseline is oriented to self only but typically active and agitated at times -Since the Alzheimer is worsening, patient's is now more open to placement for him (4) BPH (benign prostatic hyperplasia): Plan: Hold finasteride for now as this was just started yesterday and possibly could be contributing to his hypotension earlier today Will continue home Flomax Will add scheduled bladder scans and as needed straight cath for now (5) A-fib: Plan: Currently in rate controlled A-fib Not on anticoagulation due to significantly high fall risk with his severe dementia Metoprolol was initially held but was later resumed because of rising heart rate. (6) Parkinsonian features: Plan: Patient has some parkinsonian features, like for more testing on patient diagnosed suspect he has some Parkinson's. Outpatient follow-up with neurology Plan wishes to take him home eventually however she is open to a short rehab stay in a SNF facility. No bed offers available for now Admission and Anticipated Discharge Date Admission Date: November 18, 2023 Subjective Patient feels well. Accompanied by his in the room. No new complaints or issues. Review of Systems Review of Systems: All systems reviewed & are unremarkable except as noted in Subjective Physical Exam Physical Exam: General: Awake, conversant. Pleasantly confused Heart: S1, S2/regular rate and rhythm, no murmur rubs or gallops Lungs: Clear to auscultation bilaterally. Normal effort Abdomen: Soft/nontender/nondistended. No hepatosplenomegaly Extremities: No clubbing/cyanosis. No edema Behavior: Appropriate, cooperative Results & Data Results & Data Vital Signs (Past 12 Hours) Vital Signs Temp Pulse Resp BP Pulse Ox O2 Del Method 11/26/23 12:36 36.5 C 80 19 110/73 95 Room Air 11/26/23 07:13 36.4 C L 61 18 102/73 93 Room Air 11/26/23 04:30 36.8 C 65 18 131/69 96 Room Air Laboratory Results Abnormal lab results 11/26/23 Range/Units 06:53 BUN/Creatinine Ratio 25.6 H (10-20) Glucose 100 H (70-99(Fasting)) mg/dl PG Care Time/CCT Total # of Minutes Spent Total Time Spent with Patient: Total time spent is greater than 50% in coordination of care (as documented) at patient's floor/unit and/or counseling patient: Coding Level of Care Code 22042 SUB INP/OBS CARE 2/35MIN Diagnoses Unresponsive episode R40.4 General weakness R53.1 Severe Alzheimer's dementia with other behavioral disturbance, unspecified timing of dementia onset G30.9; F02.80 BPH (benign prostatic hyperplasia) N40.0 A-fib I48.91 Atrial fibrillation type: unspecified Parkinsonian features R29.818 (5) A-fib Atrial fibrillation type: unspecified Qualified Code(s): I48.91 - Unspecified atrial fibrillation
[2023-11-27] MEDS ORDERED: RIVASTIGMINE 9.5 MG/24 HR TD SCH (09:00)
--- NOTE | 2023-11-27 13:53 | Hospitalist Progress Note ---
Date of Service November 27, 2023 Assessment & Plan (1) Unresponsive episode: Plan: Presented to the ED via EMS after patient had an acute episode of unresponsiveness where his eyes rolled to the back of his head and he would not interact with his -Etiology could be due to arrhythmias, on telemetry patient has been experiencing some pauses 1 to 2-second pauses Patient has been resumed on metoprolol because of rising heart rate off of metoprolol. Discussed pacemaker as an option with his and daughter. Given his advanced dementia, family is not too keen on a procedure. They declined pacemaker placement. While patient is currently alert, oriented to self (is his baseline), Labs are generally unremarkable thus far however, CT head is wnl, MRI brain did not show any evidence of acute pathology (2) General weakness: Plan: Patient is currently too weak to safely return home at this time as he would have to go up approximately 12 steps to get into the house Family explains that their goal is to obtain significantly more care so patient can continue to live at home He is participating in physical therapy, although he is a 1 person assist (3) Alzheimer's dementia: Plan: -Possibly combination of Alzheimer's dementia and vascular dementia -Follows up with neurology outpatient Baseline is oriented to self only but typically active and agitated at times -Since the Alzheimer is worsening, patient's is now more open to placement for him (4) BPH (benign prostatic hyperplasia): Plan: Hold finasteride for now as this was just started yesterday and possibly could be contributing to his hypotension earlier today Will continue home Flomax Will add scheduled bladder scans and as needed straight cath for now (5) A-fib: Plan: Currently in rate controlled A-fib Not on anticoagulation due to significantly high fall risk with his severe dementia Metoprolol was initially held but was later resumed because of rising heart rate. (6) Parkinsonian features: Plan: Patient has some parkinsonian features, like for more testing on patient diagnosed suspect he has some Parkinson's. Outpatient follow-up with neurology Plan wishes to take him home eventually however she is open to a short rehab stay in a SNF facility. No bed offers available for now Admission and Anticipated Discharge Date Admission Date: November 18, 2023 Subjective Patient denies any new complaints. at the bedside Review of Systems Review of Systems: Unobtainable due to cognitive status Physical Exam Physical Exam: General: Awake, conversant. Pleasantly confused Heart: S1, S2/regular rate and rhythm, no murmur rubs or gallops Lungs: Clear to auscultation bilaterally. Normal effort Abdomen: Soft/nontender/nondistended. No hepatosplenomegaly Extremities: No clubbing/cyanosis. No edema Behavior: Appropriate, cooperative Results & Data Results & Data Vital Signs (Past 12 Hours) Vital Signs Temp Pulse Pulse Resp BP Pulse Ox O2 Del Method 11/27/23 11:01 36.1 C L 66 17 120/85 98 Room Air 11/27/23 08:39 54 L 11/27/23 07:27 36.4 C L 64 16 125/84 95 Room Air 11/27/23 04:00 36.7 C 65 18 131/81 94 Room Air PG Care Time/CCT Total # of Minutes Spent Total Time Spent with Patient: Total time spent is greater than 50% in coordination of care (as documented) at patient's floor/unit and/or counseling patient: Coding Level of Care Code 73444 SUB INP/OBS CARE 2/35MIN Diagnoses Unresponsive episode R40.4 General weakness R53.1 Severe Alzheimer's dementia with other behavioral disturbance, unspecified timing of dementia onset G30.9; F02.80 BPH (benign prostatic hyperplasia) N40.0 A-fib I48.91 Atrial fibrillation type: unspecified Parkinsonian features R29.818 (5) A-fib Atrial fibrillation type: unspecified Qualified Code(s): I48.91 - Unspecified atrial fibrillation
--- NOTE | 2023-11-28 15:39 | Hospitalist Progress Note ---
Date of Service November 28, 2023 Assessment & Plan (1) Unresponsive episode: Plan: Presented to the ED via EMS after patient had an acute episode of unresponsiveness where his eyes rolled to the back of his head and he would not interact with his -Etiology could be due to arrhythmias, on telemetry patient has been experiencing some pauses 1 to 2-second pauses Patient has been resumed on metoprolol because of rising heart rate off of metoprolol. Discussed pacemaker as an option with his and daughter on 11/25. Given his advanced dementia, family was not too keen on a procedure. They had declined pacemaker placement and I encouraged the decision. However, today 11/27, patient's tells me that she would like to speak to Dr. Parikh or covering medical billing manager. Cardiology consulted per family request While patient is currently alert, oriented to self (is his baseline), Labs are generally unremarkable thus far however, CT head is wnl, MRI brain did not show any evidence of acute pathology (2) General weakness: Plan: Patient is currently too weak to safely return home at this time as he would have to go up approximately 12 steps to get into the house Family explains that their goal is to obtain significantly more care so patient can continue to live at home He is participating in physical therapy, although he is a 1 person assist (3) Alzheimer's dementia: Plan: -Possibly combination of Alzheimer's dementia and vascular dementia -Follows up with neurology outpatient Baseline is oriented to self only but typically active and agitated at times -Since the Alzheimer is worsening, patient's is now more open to placement for him (4) BPH (benign prostatic hyperplasia): Plan: Hold finasteride for now as this was just started yesterday and possibly could be contributing to his hypotension earlier today Will continue home Flomax Will add scheduled bladder scans and as needed straight cath for now (5) A-fib: Plan: Currently in rate controlled A-fib Not on anticoagulation due to significantly high fall risk with his severe dementia Metoprolol was initially held but was later resumed because of rising heart rate. (6) Parkinsonian features: Plan: Patient has some parkinsonian features, like for more testing on patient diagnosed suspect he has some Parkinson's. Outpatient follow-up with neurology Plan wishes to take him home eventually however she is open to a short rehab stay in a SNF facility. No bed offers available for now Admission and Anticipated Discharge Date Admission Date: November 18, 2023 Subjective Patient feels well. Denies chest pain or shortness of breath. Accompanied by his at bedside. She wishes to speak to medical billing manager about his pulses and would like to consider pacemaker placement as an option Review of Systems Review of Systems: All systems reviewed & are unremarkable except as noted in Subjective Physical Exam Physical Exam: General: Awake, conversant. Pleasantly confused Heart: S1, S2/regular rate and rhythm, no murmur rubs or gallops Lungs: Clear to auscultation bilaterally. Normal effort Abdomen: Soft/nontender/nondistended. No hepatosplenomegaly Extremities: No clubbing/cyanosis. No edema Behavior: Appropriate, cooperative Results & Data Results & Data Vital Signs (Past 12 Hours) Vital Signs Temp Pulse Pulse Resp BP Pulse Ox O2 Del Method 11/28/23 13:00 81 11/28/23 11:02 36.4 C L 82 16 105/65 94 Room Air 11/28/23 09:42 Room Air 11/28/23 08:00 36.4 C L 50 L 17 128/79 93 Room Air 11/28/23 07:00 60 PG Care Time/CCT Total # of Minutes Spent Total Time Spent with Patient: Total time spent is greater than 50% in coordination of care (as documented) at patient's floor/unit and/or counseling patient: Coding Level of Care Code 39059 SUB INP/OBS CARE 2/35MIN Diagnoses Unresponsive episode R40.4 General weakness R53.1 Severe Alzheimer's dementia with other behavioral disturbance, unspecified timing of dementia onset G30.9; F02.80 BPH (benign prostatic hyperplasia) N40.0 A-fib I48.91 Atrial fibrillation type: unspecified Parkinsonian features R29.818 (5) A-fib Atrial fibrillation type: unspecified Qualified Code(s): I48.91 - Unspecified atrial fibrillation
--- NOTE | 2023-11-28 17:57 | Electrocardiogram Report ---
Test Reason : Blood Pressure : */* mmHG Vent. Rate : 54 BPM Atrial Rate : 61 BPM P-R Int : * ms QRS Dur : 148 ms QT Int : 516 ms P-R-T Axes : * -49 158 degrees QTcB Int : 489 ms Atrial fibrillation with slow ventricular response Left axis deviation Left bundle branch block Abnormal ECG When compared with ECG of 21-Nov-2023 07:13, No significant change was found Confirmed by Omar Umaña ([id number]) on 11/28/2023 5:57:29 PM Referred By: REFERRED SELF Confirmed By: Omar Umaña
--- NOTE | 2023-11-28 18:57 | Cardiology Consultation ---
Date of Consultation November 28, 2023 Assessment & Plan (1) Unresponsive episode: (2) Non-ischemic cardiomyopathy: (3) Left bundle branch block (LBBB): (4) A-fib: Plan 1. Unresponsive episode: The etiology of his unresponsive episode remains unknown. While he is certainly at risk of progressive conduction disease and associated asystole, I think this would have resulted in loss of postural tone rather than the aforementioned unresponsiveness. He has not demonstrated any significant bradycardia or pauses here in the hospital. In the past the was not in favor of additional interventions but recently has shown some interest in a pacemaker if indicated. I do not think there is enough evidence at this point to suggest the pacemaker would be beneficial. If the patient's condition improved to the point where he becomes ambulatory perhaps additional outpatient monitoring of his heart rhythm could be performed. 2. Atrial fibrillation: Seems to have been diagnosed nearly 1 year ago. There has been some discussion about bradycardia on metoprolol, but this has not been seen in the hospital. Additionally, it seems the decision was made not to recommend systemic anticoagulation due to concerns over falls. Given his progressive functional decline it would seem reasonable to continue without systemic anticoagulation. 3. Left bundle branch block: Longstanding. No documentation of higher degree AV block. 4. Ischemic cardiomyopathy: Documented previously. No recent evaluation of LV function. Patient did have some transient lower extremity edema recently by his 's report. However, none on the current examination lungs are clear. I do not think there is a pressing need for reevaluation. His overall functional status appears to be quite poor at this point. Although his cognitive status has continued to decline he is now poorly mobile due to an inability to walk. I do not think aggressive evaluation or intervention is warranted in this circumstance unless he can demonstrate improved mobility. History of Present Illness Reason for Consultation: Atrial fibrillation, unresponsive episode Requesting Physician: [place] Attending Physician: Chantell Perry MD History of Present Illness The patient is a 78-year-old gentleman with significant dementia who is known to have atrial fibrillation and left bundle branch block. He also has a remote history of a nonischemic cardiomyopathy. Unfortunately, the patient suffers from severe dementia and well interactive was not able to provide any meaningful history. The entire history was obtained from the patient's chart and his who was at the bedside for the interview. It seems that 10 days ago the patient was being fed by his when he became unresponsive. According to the he was sitting in his usual chair when he rolled his eyes backwards and continued to nod his head [id number]. He was not responsive to verbal stimuli. The was not sure he was even breathing at a certain point. He did not lose postural tone. She believes the episode lasted 5 to 10 minutes before he became somewhat more interactive and active in general. He was brought to the hospital for an evaluation. While his condition gradually improved he continued to be quite weak and is currently having difficulty with ambulation. According to the he has had some decline in mobility over the past year. While he has not fallen, she assists him with all movements including walking. She needs to feed him. He has not take the initiative when it comes to eating or drinking. He generally does not complain about any specific symptoms. According to he has not had any similar unresponsive episodes in the past. He has never suffered syncope. No recent falls. Allergies Allergy/AdvReac Type Severity Reaction Status Date / Time [facility] Allergy Severe sudoparkiso Verified 11/18/23 16:46 n prednisone Allergy Severe AGITATION Verified 11/18/23 16:46 WITH HIGH DOSES--LOW DOSE OKAY. tramadol Allergy Severe hallucianti Verified 11/18/23 16:46 ons mirtazapine AdvReac Severe Confusion Verified 11/18/23 16:46 Home Medications Medication Instructions Recorded Confirmed Type multivitamin 1 tab PO DAILY 03/20/21 11/18/23 History albuterol sulfate 2.5 mg/3 mL 2.5 mg (3 mL) inhalation QID PRN 04/21/22 11/18/23 Rx (0.083 %) solution for nebulization shortness of breath or wheezing #90 mL finasteride 5 mg tablet 5 mg PO DAILY #90 tabs 08/08/23 11/18/23 Rx tamsulosin 0.4 mg capsule 0.4 mg PO DAILY #90 caps 08/08/23 11/18/23 Rx clopidogrel 75 mg tablet (Plavix) 75 mg PO DAILY #30 tabs 11/06/23 11/18/23 Rx aspirin 81 mg tablet,delayed 81 mg PO DAILY 11/18/23 11/18/23 History release lorazepam 1 mg tablet 1 mg PO HS 11/18/23 11/18/23 History memantine 10 mg tablet 10 mg PO BID 11/18/23 11/18/23 History metoprolol succinate 25 mg 25 mg PO HS 11/18/23 11/18/23 History tablet,extended release 24 hr rivastigmine 9.5 mg/24 hour 9.5 mg transdermal QAM 11/18/23 11/18/23 History transdermal patch Patient History Medical History Degenerative joint disease of right hip Nonischemic cardiomyopathy Systolic heart failure Left bundle-branch block Surgical History H/O bilateral hip replacements History of joint replacement History of left hip replacement Hx of inguinal hernia surgery (01/23/19) History of anesthesia reaction H/O circumcision History of excision of pilonidal cyst History of carpal tunnel surgery of left wrist History of back surgery Family History Mother Hypertension Father Heart disease Brother Heart disease Other Dementia No family history of adverse response to anesthesia Denies family history of Ovarian cancer Prostate cancer Diabetes Coronary heart disease Myocardial infarction Breast cancer Colorectal cancer Cancer Stroke Social History Smoking Status: Never smoker Second Hand Exposure: No; Do You Dip or Chew Tobacco: No; Hx Alcohol Use: No Hx Substance Use: No Preferred Language: Luxembourgish Communication Ability: Impaired Communication Ability Comment: Dementia Auto Inspection Specialist Required: No Beliefs That Will Affect Care: None and Gnosticist Gnosticist Beliefs: ADVENTISM marital status: Current Living Situation: Spouse current occupational status: retired How many Children do You have: 4 Feels Safe at Home: Yes Childhood Exposure to Second-Hand Smoke: No Diet: regular caffeine: No Dental Care, Regularly: No Physical Activity Frequency: 3-4 Times per Week Seatbelt Use: always Sunscreen Use: No Assistive Devices: Walker, Wheelchair and Other Review of Systems Review of Systems: Unobtainable due to cognitive status Physical Exam Physical Exam: The patient is alert and oriented to person. He recognizes his . He answered some questions. He followed commands. HEENT: Pupils are equal and reactive to light and accommodation. Extraocular movements are intact. The sclerae are anicteric. Neuro: Cranial nerves intact Lungs: Clear to auscultation bilaterally. He has good air movement without use of accessory muscles. No rales wheezes or rhonchi. Cardiac: Heart demonstrates an irregular rhythm. Normal rate. Normal S1 and S2. No murmurs on examination. Pulses: The patient has palpable radial pulses bilaterally that are equal in intensity Extremities: There was no evidence of hypoperfusion. There is no cyanosis or clubbing. There is no edema. Skin: I did not appreciate any rashes on examination today. Results & Data Vital Signs (Past 12 Hours) Vital Signs Temp Pulse Pulse Resp BP Pulse Ox O2 Del Method 11/28/23 16:43 36.5 C 84 18 123/77 97 Room Air 11/28/23 13:00 81 11/28/23 11:02 36.4 C L 82 16 105/65 94 Room Air 11/28/23 09:42 Room Air 11/28/23 08:00 36.4 C L 50 L 17 128/79 93 Room Air 11/28/23 07:00 60 Diagnostic Findings Echocardiogram 03/20/2021: Normal LV systolic function with ejection fraction of 50 to 55%. Mild LVH. Mild mitral regurgitation. Brain MRI 11/19/2023: No acute intracranial hemorrhage or infarct. ECG Additional Comments: EKG demonstrates atrial fibrillation with left bundle branch block PG Care Time/CCT Total # of Minutes Spent Total Time Spent with Patient: Total time spent is greater than 50% in coordination of care (as documented) at patient's floor/unit and/or counseling patient: Coding Level of Care Code 08866 ER DEPT VISIT MOD LVL 4 Diagnoses Unresponsive episode R40.4 Non-ischemic cardiomyopathy I42.8 Left bundle branch block (LBBB) I44.7 A-fib I48.91 Atrial fibrillation type: unspecified (4) A-fib Atrial fibrillation type: unspecified Qualified Code(s): I48.91 - Unspecified atrial fibrillation
--- NOTE | 2023-11-29 12:31 | Hospitalist Progress Note ---
Date of Service November 29, 2023 Assessment & Plan (1) Unresponsive episode: Plan: Presented to the ED via EMS after patient had an acute episode of unresponsiveness where his eyes rolled to the back of his head and he would not interact with his -Etiology could be due to arrhythmias, on telemetry patient has been experiencing some pauses 1 to 2-second pauses Patient has been resumed on metoprolol because of rising heart rate off of metoprolol. Per photo machine operator, patient is not a candidate for pacemaker placement. Family agrees. While patient is currently alert, oriented to self (is his baseline), Labs are generally unremarkable thus far however, CT head is wnl, MRI brain did not show any evidence of acute pathology (2) General weakness: Plan: Patient is currently too weak to safely return home at this time as he would have to go up approximately 12 steps to get into the house Family explains that their goal is to obtain significantly more care so patient can continue to live at home He is participating in physical therapy, although he is a 1 person assist (3) Alzheimer's dementia: Plan: -Possibly combination of Alzheimer's dementia and vascular dementia -Follows up with neurology outpatient Baseline is oriented to self only but typically active and agitated at times -Since the Alzheimer is worsening, patient's is now more open to placement for him (4) BPH (benign prostatic hyperplasia): Plan: Hold finasteride for now as this was just started yesterday and possibly could be contributing to his hypotension earlier today Will continue home Flomax Will add scheduled bladder scans and as needed straight cath for now (5) A-fib: Plan: Currently in rate controlled A-fib Not on anticoagulation due to significantly high fall risk with his severe dementia Metoprolol was initially held but was later resumed because of rising heart rate. (6) Parkinsonian features: Plan: Patient has some parkinsonian features, like for more testing on patient diagnosed suspect he has some Parkinson's. Outpatient follow-up with neurology Plan wishes to take him home eventually however she is open to a short rehab stay in a SNF facility. No bed offers available for now Admission and Anticipated Discharge Date Admission Date: November 18, 2023 Subjective Patient no new questions or concerns from patient or his . They spoke to the photo machine operator and all questions were answered. Review of Systems Review of Systems: All systems reviewed & are unremarkable except as noted in Subjective Physical Exam Physical Exam: General: Awake, conversant. Pleasantly confused Heart: S1, S2/regular rate and rhythm, no murmur rubs or gallops Lungs: Clear to auscultation bilaterally. Normal effort Abdomen: Soft/nontender/nondistended. No hepatosplenomegaly Extremities: No clubbing/cyanosis. No edema Behavior: Appropriate, cooperative Results & Data Results & Data Vital Signs (Past 12 Hours) Vital Signs Temp Pulse Resp BP Pulse Ox O2 Del Method 11/29/23 11:59 36.8 C 72 18 111/74 95 Room Air 11/29/23 08:13 36.3 C L 66 18 147/95 H 95 Room Air PG Care Time/CCT Total # of Minutes Spent Total Time Spent with Patient: Total time spent is greater than 50% in coordination of care (as documented) at patient's floor/unit and/or counseling patient: Coding Level of Care Code 70598 SUB INP/OBS CARE 2/35MIN Diagnoses Unresponsive episode R40.4 General weakness R53.1 Severe Alzheimer's dementia with other behavioral disturbance, unspecified timing of dementia onset G30.9; F02.80 BPH (benign prostatic hyperplasia) N40.0 A-fib I48.91 Atrial fibrillation type: unspecified Parkinsonian features R29.818 (5) A-fib Atrial fibrillation type: unspecified Qualified Code(s): I48.91 - Unspecified atrial fibrillation
--- NOTE | 2023-11-30 12:25 | Hospitalist Progress Note ---
Date of Service November 30, 2023 Assessment & Plan (1) Unresponsive episode: Plan: Presented to the ED via EMS after patient had an acute episode of unresponsiveness where his eyes rolled to the back of his head and he would not interact with his -Etiology could be due to arrhythmias, on telemetry patient has been experiencing some pauses 1 to 2-second pauses Patient has been resumed on metoprolol because of rising heart rate off of metoprolol. Per parking regulation enforcement officer, patient is not a candidate for pacemaker placement. Family agrees. While patient is currently alert, oriented to self (is his baseline), Labs are generally unremarkable thus far however, CT head is wnl, MRI brain did not show any evidence of acute pathology (2) General weakness: Plan: Patient is currently too weak to safely return home at this time as he would have to go up approximately 12 steps to get into the house Family explains that their goal is to obtain significantly more care so patient can continue to live at home He is participating in physical therapy, although he is a 1 person assist (3) Alzheimer's dementia: Plan: -Possibly combination of Alzheimer's dementia and vascular dementia -Follows up with neurology outpatient Baseline is oriented to self only but typically active and agitated at times -Since the Alzheimer is worsening, patient's is now more open to placement for him (4) BPH (benign prostatic hyperplasia): Plan: Hold finasteride for now as this was just started yesterday and possibly could be contributing to his hypotension earlier today Will continue home Flomax Will add scheduled bladder scans and as needed straight cath for now (5) A-fib: Plan: Currently in rate controlled A-fib Not on anticoagulation due to significantly high fall risk with his severe dementia Metoprolol was initially held but was later resumed because of rising heart rate. (6) Parkinsonian features: Plan: Patient has some parkinsonian features, like for more testing on patient diagnosed suspect he has some Parkinson's. Outpatient follow-up with neurology Plan wishes to take him home eventually however she is open to a short rehab stay in a SNF facility. client program manager working on placement Admission and Anticipated Discharge Date Admission Date: November 18, 2023 Subjective No new complaints. at bedside. Nurse informed me that patient has been having 2-second pauses but asymptomatic. Review of Systems Review of Systems: All systems reviewed & are unremarkable except as noted in Subjective Physical Exam Physical Exam: General: Awake, conversant. Pleasantly confused Heart: S1, S2/regular rate and rhythm, no murmur rubs or gallops Lungs: Clear to auscultation bilaterally. Normal effort Abdomen: Soft/nontender/nondistended. No hepatosplenomegaly Extremities: No clubbing/cyanosis. No edema Behavior: Appropriate, cooperative Results & Data Results & Data Vital Signs (Past 12 Hours) Vital Signs Temp Pulse Pulse Resp BP Pulse Ox O2 Del Method 11/30/23 11:40 35.6 C L 73 16 115/72 93 Room Air 11/30/23 09:37 Room Air 11/30/23 07:31 35.8 C L 64 16 127/78 94 Room Air 11/30/23 07:17 78 PG Care Time/CCT Total # of Minutes Spent Total Time Spent with Patient: Total time spent is greater than 50% in coordination of care (as documented) at patient's floor/unit and/or counseling patient: Coding Level of Care Code 29022 SUB INP/OBS CARE 2/35MIN Diagnoses Unresponsive episode R40.4 General weakness R53.1 Severe Alzheimer's dementia with other behavioral disturbance, unspecified timing of dementia onset G30.9; F02.80 BPH (benign prostatic hyperplasia) N40.0 A-fib I48.91 Atrial fibrillation type: unspecified Parkinsonian features R29.818 (5) A-fib Atrial fibrillation type: unspecified Qualified Code(s): I48.91 - Unspecified atrial fibrillation
--- NOTE | 2023-12-01 15:22 | Hospitalist Progress Note ---
Date of Service December 01, 2023 Assessment & Plan (1) Unresponsive episode: Plan: Presented to the ED via EMS after patient had an acute episode of unresponsiveness where his eyes rolled to the back of his head and he would not interact with his -Etiology could be due to arrhythmias, on telemetry patient has been experiencing some pauses 1 to 2-second pauses Patient has been resumed on metoprolol because of rising heart rate off of metoprolol. Per grocery store bagger, patient is not a candidate for pacemaker placement. Family agrees. While patient is currently alert, oriented to self (is his baseline), Labs are generally unremarkable thus far however, CT head is wnl, MRI brain did not show any evidence of acute pathology (2) General weakness: Plan: Patient is currently too weak to safely return home at this time as he would have to go up approximately 12 steps to get into the house Family explains that their goal is to obtain significantly more care so patient can continue to live at home He is participating in physical therapy, although he is a 1 person assist (3) Alzheimer's dementia: Plan: -Possibly combination of Alzheimer's dementia and vascular dementia -Follows up with neurology outpatient Baseline is oriented to self only but typically active and agitated at times -Since the Alzheimer is worsening, patient's is now more open to placement for him (4) BPH (benign prostatic hyperplasia): Plan: Hold finasteride for now as this was just started yesterday and possibly could be contributing to his hypotension earlier today Will continue home Flomax Will add scheduled bladder scans and as needed straight cath for now (5) A-fib: Plan: Currently in rate controlled A-fib Not on anticoagulation due to significantly high fall risk with his severe dementia Metoprolol was initially held but was later resumed because of rising heart rate. (6) Parkinsonian features: Plan: Patient has some parkinsonian features, like for more testing on patient diagnosed suspect he has some Parkinson's. Outpatient follow-up with neurology Plan wishes to take him home eventually however she is open to a short rehab stay in a SNF facility. manager advanced working on placement, likely next week Admission and Anticipated Discharge Date Admission Date: November 18, 2023 Subjective No new complaints. Patient denies chest pain or shortness of breath. Review of Systems Review of Systems: Unobtainable due to cognitive status Physical Exam Physical Exam: General: Awake, conversant. Pleasantly confused Heart: S1, S2/regular rate and rhythm, no murmur rubs or gallops Lungs: Clear to auscultation bilaterally. Normal effort Abdomen: Soft/nontender/nondistended. No hepatosplenomegaly Extremities: No clubbing/cyanosis. No edema Behavior: Appropriate, cooperative Results & Data Results & Data Vital Signs (Past 12 Hours) Vital Signs Temp Pulse Resp BP Pulse Ox O2 Del Method 12/01/23 12:06 36.6 C 82 18 124/78 95 Room Air 12/01/23 08:21 36.4 C L 73 16 121/84 96 Room Air 12/01/23 08:00 Room Air 12/01/23 05:19 36.4 C L 90 20 152/91 H 92 Room Air PG Care Time/CCT Total # of Minutes Spent Total Time Spent with Patient: Total time spent is greater than 50% in coordination of care (as documented) at patient's floor/unit and/or counseling patient: Coding Level of Care Code 43653 SUB INP/OBS CARE 2/35MIN Diagnoses Unresponsive episode R40.4 General weakness R53.1 Severe Alzheimer's dementia with other behavioral disturbance, unspecified timing of dementia onset G30.9; F02.80 BPH (benign prostatic hyperplasia) N40.0 A-fib I48.91 Atrial fibrillation type: unspecified Parkinsonian features R29.818 (5) A-fib Atrial fibrillation type: unspecified Qualified Code(s): I48.91 - Unspecified atrial fibrillation
--- NOTE | 2023-12-02 14:35 | Hospitalist Progress Note ---
Date of Service December 02, 2023 Assessment & Plan (1) Unresponsive episode: Plan: Presented to the ED via EMS after patient had an acute episode of unresponsiveness where his eyes rolled to the back of his head and he would not interact with his -Etiology could be due to arrhythmias, on telemetry patient has been experiencing some pauses 1 to 2-second pauses Patient has been resumed on metoprolol because of rising heart rate off of metoprolol. Per licensed mental health counselor, patient is not a candidate for pacemaker placement. Family agrees. While patient is currently alert, oriented to self (is his baseline), Labs are generally unremarkable thus far however, CT head is wnl, MRI brain did not show any evidence of acute pathology (2) General weakness: Plan: Patient is currently too weak to safely return home at this time as he would have to go up approximately 12 steps to get into the house Family explains that their goal is to obtain significantly more care so patient can continue to live at home He is participating in physical therapy, although he is a 1 person assist (3) Alzheimer's dementia: Plan: -Possibly combination of Alzheimer's dementia and vascular dementia -Follows up with neurology outpatient Baseline is oriented to self only but typically active and agitated at times -Since the Alzheimer is worsening, patient's is now more open to placement for him (4) BPH (benign prostatic hyperplasia): Plan: Hold finasteride for now as this was just started yesterday and possibly could be contributing to his hypotension earlier today Will continue home Flomax Will add scheduled bladder scans and as needed straight cath for now (5) A-fib: Plan: Currently in rate controlled A-fib Not on anticoagulation due to significantly high fall risk with his severe dementia Metoprolol was initially held but was later resumed because of rising heart rate. (6) Parkinsonian features: Plan: Patient has some parkinsonian features, like for more testing on patient diagnosed suspect he has some Parkinson's. Outpatient follow-up with neurology Plan wishes to take him home eventually however she is open to a short rehab stay in a SNF facility. field case manager working on placement, likely next week Check labs tomorrow 12/02 Admission and Anticipated Discharge Date Admission Date: November 18, 2023 Subjective No changes. Review of Systems Review of Systems: Unobtainable due to cognitive status Physical Exam Physical Exam: General: Awake, conversant. Pleasantly confused Heart: S1, S2/regular rate and rhythm, no murmur rubs or gallops Lungs: Clear to auscultation bilaterally. Normal effort Abdomen: Soft/nontender/nondistended. No hepatosplenomegaly Extremities: No clubbing/cyanosis. No edema Behavior: Appropriate, cooperative Results & Data Results & Data Vital Signs (Past 12 Hours) Vital Signs Temp Pulse Resp BP Pulse Ox O2 Del Method 12/02/23 12:09 36.4 C L 64 16 119/77 96 Room Air 12/02/23 08:00 Room Air 12/02/23 07:58 36.3 C L 75 16 108/63 93 Room Air 12/02/23 04:54 36.3 C L 79 18 118/84 96 Room Air PG Care Time/CCT Total # of Minutes Spent Total Time Spent with Patient: Total time spent is greater than 50% in coordination of care (as documented) at patient's floor/unit and/or counseling patient: Coding Level of Care Code 53442 SUB INP/OBS CARE 2/35MIN Diagnoses Unresponsive episode R40.4 General weakness R53.1 Severe Alzheimer's dementia with other behavioral disturbance, unspecified timing of dementia onset G30.9; F02.80 BPH (benign prostatic hyperplasia) N40.0 A-fib I48.91 Atrial fibrillation type: unspecified Parkinsonian features R29.818 (5) A-fib Atrial fibrillation type: unspecified Qualified Code(s): I48.91 - Unspecified atrial fibrillation
[2023-12-03 05:59] LABS: Mean Corpuscular Hemoglobin 30.2 pg (25.0-34.0); Mean Platelet Volume 10.9 fL (9.4-12.4); Platelet Count 200 K/uL (130-400); RDW Coefficient of Variation 11.8 % (11.5-14.5); RDW Standard Deviation 38.5 fL (36.4-46.3); Red Blood Count 5.62 M/uL (4.70-6.10); White Blood Count 8.16 K/ul (4.8-10.8)
[2023-12-03 06:12] LABS: BUN Creatinine Ratio 24.3 (10-20); Creatinine Clr Calc Pharmacy 63.5 ml/min; Est GFR (African American) 77.2 ml/min; Est GFR (Non-African American) 66.6 ml/min; Potassium 3.8 mmol/L (3.5-5.1)
--- NOTE | 2023-12-03 13:43 | Hospitalist Progress Note ---
Date of Service December 03, 2023 Assessment & Plan (1) Unresponsive episode: Plan: Presented to the ED via EMS after patient had an acute episode of unresponsiveness where his eyes rolled to the back of his head and he would not interact with his -Etiology could be due to arrhythmias, on telemetry patient has been experiencing some pauses 1 to 2-second pauses Patient has been resumed on metoprolol because of rising heart rate off of metoprolol. Per credit union field examiner, patient is not a candidate for pacemaker placement. Family agrees. While patient is currently alert, oriented to self (is his baseline), Labs are generally unremarkable thus far however, CT head is wnl, MRI brain did not show any evidence of acute pathology (2) General weakness: Plan: Patient is currently too weak to safely return home at this time as he would have to go up approximately 12 steps to get into the house Family explains that their goal is to obtain significantly more care so patient can continue to live at home He is participating in physical therapy, although he is a 1 person assist (3) Alzheimer's dementia: Plan: -Possibly combination of Alzheimer's dementia and vascular dementia -Follows up with neurology outpatient Baseline is oriented to self only but typically active and agitated at times -Since the Alzheimer is worsening, patient's is now more open to placement for him (4) BPH (benign prostatic hyperplasia): Plan: Hold finasteride for now as this was just started yesterday and possibly could be contributing to his hypotension earlier today Will continue home Flomax Will add scheduled bladder scans and as needed straight cath for now (5) A-fib: Plan: Currently in rate controlled A-fib Not on anticoagulation due to significantly high fall risk with his severe dementia Metoprolol was initially held but was later resumed because of rising heart rate. (6) Parkinsonian features: Plan: Patient has some parkinsonian features, like for more testing on patient diagnosed suspect he has some Parkinson's. Outpatient follow-up with neurology Plan wishes to take him home eventually however she is open to a short rehab stay in a SNF facility. fast food restaurant manager working on placement, likely next week Admission and Anticipated Discharge Date Admission Date: November 18, 2023 Subjective No new complaints. at the bedside. Review of Systems Review of Systems: Unobtainable due to cognitive status Physical Exam Physical Exam: General: Awake. Pleasantly confused Heart: S1, S2/regular rate and rhythm, no murmur rubs or gallops Lungs: Clear to auscultation bilaterally. Normal effort Abdomen: Soft/nontender/nondistended. No hepatosplenomegaly Extremities: No clubbing/cyanosis. No edema Behavior: Appropriate, cooperative Results & Data Results & Data Vital Signs (Past 12 Hours) Vital Signs Temp Pulse Resp BP Pulse Ox O2 Del Method 12/03/23 11:37 36.4 C L 88 17 111/74 97 Room Air 12/03/23 08:25 36.3 C L 68 18 123/86 96 Room Air 12/03/23 08:24 Room Air 12/03/23 04:00 36.5 C 66 18 110/70 94 Room Air PG Care Time/CCT Total # of Minutes Spent Total Time Spent with Patient: Total time spent is greater than 50% in coordination of care (as documented) at patient's floor/unit and/or counseling patient: Coding Level of Care Code 51314 SUB INP/OBS CARE 2/35MIN Diagnoses Unresponsive episode R40.4 General weakness R53.1 Severe Alzheimer's dementia with other behavioral disturbance, unspecified timing of dementia onset G30.9; F02.80 BPH (benign prostatic hyperplasia) N40.0 A-fib I48.91 Atrial fibrillation type: unspecified Parkinsonian features R29.818 (5) A-fib Atrial fibrillation type: unspecified Qualified Code(s): I48.91 - Unspecified atrial fibrillation
--- NOTE | 2023-12-04 16:34 | Hospitalist Progress Note ---
Date of Service December 04, 2023 Assessment & Plan (1) Unresponsive episode: Plan: Presented to the ED via EMS after patient had an acute episode of unresponsiveness where his eyes rolled to the back of his head and he would not interact with his -Etiology could be due to arrhythmias, on telemetry patient has been experiencing some pauses 1 to 2-second pauses Patient has been resumed on metoprolol because of rising heart rate off of metoprolol. Per value stream leader, patient is not a candidate for pacemaker placement. Family agrees. While patient is currently alert, oriented to self (is his baseline), Labs are generally unremarkable thus far however, CT head is wnl, MRI brain did not show any evidence of acute pathology (2) General weakness: Plan: Patient is currently too weak to safely return home at this time as he would have to go up approximately 12 steps to get into the house Family explains that their goal is to obtain significantly more care so patient can continue to live at home He is participating in physical therapy, although he is a 1 person assist (3) Alzheimer's dementia: Plan: -Possibly combination of Alzheimer's dementia and vascular dementia -Follows up with neurology outpatient Baseline is oriented to self only but typically active and agitated at times -Since the Alzheimer is worsening, patient's is now more open to placement for him (4) BPH (benign prostatic hyperplasia): Plan: Hold finasteride for now as this was just started yesterday and possibly could be contributing to his hypotension earlier today Will continue home Flomax Will add scheduled bladder scans and as needed straight cath for now (5) A-fib: Plan: Currently in rate controlled A-fib Not on anticoagulation due to significantly high fall risk with his severe dementia Metoprolol was initially held but was later resumed because of rising heart rate. (6) Parkinsonian features: Plan: Patient has some parkinsonian features, like for more testing on patient diagnosed suspect he has some Parkinson's. Outpatient follow-up with neurology Plan wishes to take him home eventually however she is open to a short rehab stay in a SNF facility. manager of construction working on placement Admission and Anticipated Discharge Date Admission Date: November 18, 2023 Subjective No new complaints. Review of Systems Review of Systems: All systems reviewed & are unremarkable except as noted in Subjective Physical Exam Physical Exam: General: Awake. Pleasantly confused Heart: S1, S2/regular rate and rhythm, no murmur rubs or gallops Lungs: Clear to auscultation bilaterally. Normal effort Abdomen: Soft/nontender/nondistended. No hepatosplenomegaly Extremities: No clubbing/cyanosis. No edema Behavior: Appropriate, cooperative Results & Data Results & Data Vital Signs (Past 12 Hours) Vital Signs Temp Pulse Pulse Resp BP Pulse Ox O2 Del Method 12/04/23 16:03 96 H 12/04/23 15:52 36.8 C 50 L 18 123/81 93 Room Air 12/04/23 11:35 36 C L 56 L 14 131/78 97 Room Air 12/04/23 07:39 36.2 C L 66 14 120/85 94 Room Air PG Care Time/CCT Total # of Minutes Spent Total Time Spent with Patient: Total time spent is greater than 50% in coordination of care (as documented) at patient's floor/unit and/or counseling patient: Coding Level of Care Code 41578 SUB INP/OBS CARE 2/35MIN Diagnoses Unresponsive episode R40.4 General weakness R53.1 Severe Alzheimer's dementia with other behavioral disturbance, unspecified timing of dementia onset G30.9; F02.80 BPH (benign prostatic hyperplasia) N40.0 A-fib I48.91 Atrial fibrillation type: unspecified Parkinsonian features R29.818 (5) A-fib Atrial fibrillation type: unspecified Qualified Code(s): I48.91 - Unspecified atrial fibrillation
--- NOTE | 2023-12-05 15:51 | Hospitalist Progress Note ---
Date of Service December 05, 2023 Assessment & Plan (1) Unresponsive episode: Plan: Presented to the ED via EMS after patient had an acute episode of unresponsiveness where his eyes rolled to the back of his head and he would not interact with his -Etiology could be due to arrhythmias, on telemetry patient has been experiencing some pauses 1 to 2-second pauses Patient has been resumed on metoprolol because of rising heart rate off of metoprolol. Per parachutist/combatant diver qualified, patient is not a candidate for pacemaker placement. Family agrees. While patient is currently alert, oriented to self (is his baseline), Labs are generally unremarkable thus far however, CT head is wnl, MRI brain did not show any evidence of acute pathology (2) General weakness: Plan: Patient is currently too weak to safely return home at this time as he would have to go up approximately 12 steps to get into the house Family explains that their goal is to obtain significantly more care so patient can continue to live at home He is participating in physical therapy, although he is a 1 person assist (3) Alzheimer's dementia: Plan: -Possibly combination of Alzheimer's dementia and vascular dementia -Follows up with neurology outpatient Baseline is oriented to self only but typically active and agitated at times -Since the Alzheimer is worsening, patient's is now more open to placement for him (4) BPH (benign prostatic hyperplasia): Plan: Hold finasteride for now as this was just started yesterday and possibly could be contributing to his hypotension earlier today Will continue home Flomax Will add scheduled bladder scans and as needed straight cath for now (5) A-fib: Plan: Currently in rate controlled A-fib Not on anticoagulation due to significantly high fall risk with his severe dementia Metoprolol was initially held but was later resumed because of rising heart rate. (6) Parkinsonian features: Plan: Patient has some parkinsonian features, like for more testing on patient diagnosed suspect he has some Parkinson's. Outpatient follow-up with neurology Plan wishes to take him home eventually however she is open to a short rehab stay in a SNF facility. manager respiratory care working on placement Admission and Anticipated Discharge Date Admission Date: November 18, 2023 Subjective No new complaints. at the bedside. Review of Systems Review of Systems: Unobtainable due to cognitive status Physical Exam Physical Exam: General: Awake. Pleasantly confused Heart: S1, S2/regular rate and rhythm, no murmur rubs or gallops Lungs: Clear to auscultation bilaterally. Normal effort Abdomen: Soft/nontender/nondistended. No hepatosplenomegaly Extremities: No clubbing/cyanosis. No edema Behavior: Appropriate, cooperative Results & Data Results & Data Vital Signs (Past 12 Hours) Vital Signs Temp Pulse Pulse Resp BP Pulse Ox O2 Del Method 12/05/23 14:53 75 12/05/23 11:25 36.7 C 76 16 102/69 94 Room Air 12/05/23 08:45 Room Air 12/05/23 07:28 64 12/05/23 07:16 37.4 C 87 14 104/64 94 Room Air PG Care Time/CCT Total # of Minutes Spent Total Time Spent with Patient: Total time spent is greater than 50% in coordination of care (as documented) at patient's floor/unit and/or counseling patient: Coding Level of Care Code 39796 SUB INP/OBS CARE 2/35MIN Diagnoses Unresponsive episode R40.4 General weakness R53.1 Severe Alzheimer's dementia with other behavioral disturbance, unspecified timing of dementia onset G30.9; F02.80 BPH (benign prostatic hyperplasia) N40.0 A-fib I48.91 Atrial fibrillation type: unspecified Parkinsonian features R29.818 (5) A-fib Atrial fibrillation type: unspecified Qualified Code(s): I48.91 - Unspecified atrial fibrillation
--- NOTE | 2023-12-06 13:47 | Hospitalist Progress Note ---
Date of Service December 06, 2023 Assessment & Plan (1) Unresponsive episode: Plan: Presented to the ED via EMS after patient had an acute episode of unresponsiveness where his eyes rolled to the back of his head and he would not interact with his -Etiology could be due to arrhythmias, on telemetry patient has been experiencing some pauses 1 to 2-second pauses Patient has been resumed on metoprolol because of rising heart rate off of metoprolol. Per carport erector, patient is not a candidate for pacemaker placement. Family agrees. While patient is currently alert, oriented to self (is his baseline), Labs are generally unremarkable thus far however, CT head is wnl, MRI brain did not show any evidence of acute pathology (2) General weakness: Plan: Patient is currently too weak to safely return home at this time as he would have to go up approximately 12 steps to get into the house Family explains that their goal is to obtain significantly more care so patient can continue to live at home Per PT, patient will need rehab placement (3) Alzheimer's dementia: Plan: -Possibly combination of Alzheimer's dementia and vascular dementia -Follows up with neurology outpatient Baseline is oriented to self only but typically active and agitated at times -Since the Alzheimer is worsening, patient's is now more open to placement for him (4) BPH (benign prostatic hyperplasia): Plan: Hold finasteride for now as this was just started yesterday and possibly could be contributing to his hypotension earlier today Will continue home Flomax Will add scheduled bladder scans and as needed straight cath for now (5) A-fib: Plan: Currently in rate controlled A-fib Not on anticoagulation due to significantly high fall risk with his severe dementia Metoprolol was initially held but was later resumed because of rising heart rate. (6) Parkinsonian features: Plan: Patient has some parkinsonian features, like for more testing on patient diagnosed suspect he has some Parkinson's. Outpatient follow-up with neurology Plan wishes to take him home eventually however she is open to a short rehab stay in a SNF facility. scientific manager working on placement Admission and Anticipated Discharge Date Admission Date: November 18, 2023 Subjective No new complaints. Patient is accompanied by , physical therapy. Review of Systems Review of Systems: Unobtainable due to cognitive status Physical Exam Physical Exam: General: Awake. Pleasantly confused Heart: S1, S2/regular rate and rhythm, no murmur rubs or gallops Lungs: Clear to auscultation bilaterally. Normal effort Abdomen: Soft/nontender/nondistended. No hepatosplenomegaly Extremities: No clubbing/cyanosis. No edema Behavior: Appropriate, cooperative Results & Data Results & Data Vital Signs (Past 12 Hours) Vital Signs Temp Pulse Resp BP Pulse Ox O2 Del Method 12/06/23 11:34 36.2 C L 78 16 108/68 93 Room Air 12/06/23 08:18 37.0 C 20 118/79 93 Room Air 12/06/23 04:06 36 C L 73 18 116/81 97 Room Air PG Care Time/CCT Total # of Minutes Spent Total Time Spent with Patient: Total time spent is greater than 50% in coordination of care (as documented) at patient's floor/unit and/or counseling patient: Coding Level of Care Code 80125 SUB INP/OBS CARE 2/35MIN Diagnoses Unresponsive episode R40.4 General weakness R53.1 Severe Alzheimer's dementia with other behavioral disturbance, unspecified timing of dementia onset G30.9; F02.80 BPH (benign prostatic hyperplasia) N40.0 A-fib I48.91 Atrial fibrillation type: unspecified Parkinsonian features R29.818 (5) A-fib Atrial fibrillation type: unspecified Qualified Code(s): I48.91 - Unspecified atrial fibrillation
--- NOTE | 2023-12-07 15:36 | Hospitalist Progress Note ---
Date of Service December 07, 2023 Assessment & Plan (1) Unresponsive episode: Plan: Presented to the ED via EMS after patient had an acute episode of unresponsiveness where his eyes rolled to the back of his head and he would not interact with his -Etiology could be due to arrhythmias, on telemetry patient has been experiencing some pauses 1 to 2-second pauses Patient has been resumed on metoprolol because of rising heart rate off of metoprolol. Per palliative medicine physician, patient is not a candidate for pacemaker placement. Family agrees. While patient is currently alert, oriented to self (is his baseline), Labs are generally unremarkable thus far however, CT head is wnl, MRI brain did not show any evidence of acute pathology (2) General weakness: Plan: Patient is currently too weak to safely return home at this time as he would have to go up approximately 12 steps to get into the house Family explains that their goal is to obtain significantly more care so patient can continue to live at home Per PT, patient will need rehab placement (3) Alzheimer's dementia: Plan: -Possibly combination of Alzheimer's dementia and vascular dementia -Follows up with neurology outpatient Baseline is oriented to self only but typically active and agitated at times -Since the Alzheimer is worsening, patient's is now more open to placement for him (4) BPH (benign prostatic hyperplasia): Plan: Hold finasteride for now as this was just started yesterday and possibly could be contributing to his hypotension earlier today Will continue home Flomax Will add scheduled bladder scans and as needed straight cath for now (5) A-fib: Plan: Currently in rate controlled A-fib Not on anticoagulation due to significantly high fall risk with his severe dementia Metoprolol was initially held but was later resumed because of rising heart rate. (6) Parkinsonian features: Plan: Patient has some parkinsonian features, like for more testing on patient diagnosed suspect he has some Parkinson's. Outpatient follow-up with neurology Plan wishes to take him home eventually however she is open to a short rehab stay in a SNF facility. manager presentation working on placement Admission and Anticipated Discharge Date Admission Date: November 18, 2023 Subjective Patient has no new complaints. at the bedside. Physical Exam Physical Exam: General: Awake. Pleasantly confused Heart: S1, S2/regular rate and rhythm, no murmur rubs or gallops Lungs: Clear to auscultation bilaterally. Normal effort Abdomen: Soft/nontender/nondistended. No hepatosplenomegaly Extremities: No clubbing/cyanosis. No edema Behavior: Appropriate, cooperative Results & Data Results & Data Vital Signs (Past 12 Hours) Vital Signs Temp Pulse Pulse Resp BP BP Pulse Ox 12/07/23 15:00 36.4 C L 70 18 101/60 94 12/07/23 12:59 75 12/07/23 11:25 36.3 C L 80 20 100/70 98 12/07/23 09:01 12/07/23 08:13 36.5 C 55 L 20 123/81 98 12/07/23 07:00 75 O2 Del Method 12/07/23 15:00 Room Air 12/07/23 12:59 12/07/23 11:25 Room Air 12/07/23 09:01 Room Air 12/07/23 08:13 Room Air 12/07/23 07:00 PG Care Time/CCT Total # of Minutes Spent Total Time Spent with Patient: Total time spent is greater than 50% in coordination of care (as documented) at patient's floor/unit and/or counseling patient: Coding Level of Care Code 37156 SUB INP/OBS CARE 2/35MIN Diagnoses Unresponsive episode R40.4 General weakness R53.1 Severe Alzheimer's dementia with other behavioral disturbance, unspecified timing of dementia onset G30.9; F02.80 BPH (benign prostatic hyperplasia) N40.0 A-fib I48.91 Atrial fibrillation type: unspecified Parkinsonian features R29.818 (5) A-fib Atrial fibrillation type: unspecified Qualified Code(s): I48.91 - Unspecified atrial fibrillation
--- NOTE | 2023-12-08 16:30 | Hospitalist Progress Note ---
Date of Service December 08, 2023 Assessment & Plan (1) Unresponsive episode: Plan: Presented to the ED via EMS after patient had an acute episode of unresponsiveness where his eyes rolled to the back of his head and he would not interact with his -Etiology could be due to arrhythmias, on telemetry patient has been experiencing some pauses 1 to 2-second pauses Patient has been resumed on metoprolol because of rising heart rate off of metoprolol. Per sap bpc developer, patient is not a candidate for pacemaker placement. Family agrees. While patient is currently alert, oriented to self (is his baseline), Labs are generally unremarkable thus far however, CT head is wnl, MRI brain did not show any evidence of acute pathology (2) General weakness: Plan: Patient is currently too weak to safely return home at this time as he would have to go up approximately 12 steps to get into the house Family explains that their goal is to obtain significantly more care so patient can continue to live at home Per PT, patient will need rehab placement (3) Alzheimer's dementia: Plan: -Possibly combination of Alzheimer's dementia and vascular dementia -Follows up with neurology outpatient Baseline is oriented to self only but typically active and agitated at times -Since the Alzheimer is worsening, patient's is now more open to placement for him Had a family meeting with and daughters. Explained to them about palliative care versus hospice. Family is inclined towards considering palliative care at rehab. (4) BPH (benign prostatic hyperplasia): Plan: Hold finasteride for now as this was just started yesterday and possibly could be contributing to his hypotension earlier today Will continue home Flomax Will add scheduled bladder scans and as needed straight cath for now (5) A-fib: Plan: Currently in rate controlled A-fib Not on anticoagulation due to significantly high fall risk with his severe dementia Metoprolol was initially held but was later resumed because of rising heart rate. (6) Parkinsonian features: Plan: Patient has some parkinsonian features, like for more testing on patient diagnosed suspect he has some Parkinson's. Outpatient follow-up with neurology Plan wishes to take him home eventually however she is open to a short rehab stay in a SNF facility. train operations manager working on placement Admission and Anticipated Discharge Date Admission Date: November 18, 2023 Subjective No new complaints Review of Systems Review of Systems: Unobtainable due to cognitive status Physical Exam Physical Exam: General: Awake. Pleasantly confused Heart: S1, S2/regular rate and rhythm, no murmur rubs or gallops Lungs: Clear to auscultation bilaterally. Normal effort Abdomen: Soft/nontender/nondistended. No hepatosplenomegaly Extremities: No clubbing/cyanosis. No edema Behavior: Appropriate, cooperative Results & Data Results & Data Vital Signs (Past 12 Hours) Vital Signs Temp Pulse Pulse Resp BP Pulse Ox O2 Del Method 12/08/23 15:49 36.4 C L 98 H 20 107/80 97 Room Air 12/08/23 13:23 122 H 12/08/23 11:22 36.5 C 84 20 91/63 L 93 Room Air 12/08/23 08:14 36.4 C L 85 20 118/80 94 Room Air 12/08/23 07:30 Room Air 12/08/23 07:00 79 PG Care Time/CCT Total # of Minutes Spent Total Time Spent with Patient: Total time spent is greater than 50% in coordination of care (as documented) at patient's floor/unit and/or counseling patient: Coding Level of Care Code 25276 SUB INP/OBS CARE 2/35MIN Diagnoses Unresponsive episode R40.4 General weakness R53.1 Severe Alzheimer's dementia with other behavioral disturbance, unspecified timing of dementia onset G30.9; F02.80 BPH (benign prostatic hyperplasia) N40.0 A-fib I48.91 Atrial fibrillation type: unspecified Parkinsonian features R29.818 (5) A-fib Atrial fibrillation type: unspecified Qualified Code(s): I48.91 - Unspecified atrial fibrillation
--- NOTE | 2023-12-09 14:20 | Hospitalist Progress Note ---
Date of Service December 09, 2023 Assessment & Plan (1) Unresponsive episode: Plan: Presented to the ED via EMS after patient had an acute episode of unresponsiveness where his eyes rolled to the back of his head and he would not interact with his -Etiology could be due to arrhythmias, on telemetry patient has been experiencing some pauses 1 to 2-second pauses Patient has been resumed on metoprolol because of rising heart rate off of metoprolol. Per manager long term care, patient is not a candidate for pacemaker placement. Family agrees. While patient is currently alert, oriented to self (is his baseline), Labs are generally unremarkable thus far however, CT head is wnl, MRI brain did not show any evidence of acute pathology (2) General weakness: Plan: Patient is currently too weak to safely return home at this time as he would have to go up approximately 12 steps to get into the house Family explains that their goal is to obtain significantly more care so patient can continue to live at home Per PT, patient will need rehab placement (3) Alzheimer's dementia: Plan: -Possibly combination of Alzheimer's dementia and vascular dementia -Follows up with neurology outpatient Baseline is oriented to self only but typically active and agitated at times -Since the Alzheimer is worsening, patient's is now more open to placement for him Had a family meeting with and daughters on 12/07. Explained to them about palliative care versus hospice. Family is inclined towards considering palli ative care at rehab. (4) BPH (benign prostatic hyperplasia): Plan: Hold finasteride for now as this was just started yesterday and possibly could be contributing to his hypotension earlier today Will continue home Flomax Will add scheduled bladder scans and as needed straight cath for now (5) A-fib: Plan: Currently in rate controlled A-fib Not on anticoagulation due to significantly high fall risk with his severe dementia Metoprolol was initially held but was later resumed because of rising heart rate. (6) Parkinsonian features: Plan: Patient has some parkinsonian features, like for more testing on patient diagnosed suspect he has some Parkinson's. Outpatient follow-up with neurology Plan wishes to take him home eventually however she is open to a short rehab stay in a SNF facility. field sales manager working on placement. SNF referrals on Sunday 12/10 to allow family time to visit facilities. Ordered basic weekly labs for tomorrow 12/09 Admission and Anticipated Discharge Date Admission Date: November 18, 2023 Subjective Patient has no new complaints. Review of Systems Review of Systems: Unobtainable due to cognitive status Physical Exam Physical Exam: General: Awake. Pleasantly confused Heart: S1, S2/regular rate and rhythm, no murmur rubs or gallops Lungs: Clear to auscultation bilaterally. Normal effort Abdomen: Soft/nontender/nondistended. No hepatosplenomegaly Extremities: No clubbing/cyanosis. No edema Behavior: Appropriate, cooperative Results & Data Results & Data Vital Signs (Past 12 Hours) Vital Signs Temp Pulse Resp BP Pulse Ox O2 Del Method 12/09/23 11:49 36.3 C L 61 16 108/73 97 Room Air 12/09/23 07:46 60 18 126/91 94 Room Air 12/09/23 04:02 35.8 C L 64 18 115/72 95 Room Air PG Care Time/CCT Total # of Minutes Spent Total Time Spent with Patient: Total time spent is greater than 50% in coordination of care (as documented) at patient's floor/unit and/or counseling patient: Coding Level of Care Code 53571 SUB INP/OBS CARE 2/35MIN Diagnoses Unresponsive episode R40.4 General weakness R53.1 Severe Alzheimer's dementia with other behavioral disturbance, unspecified timing of dementia onset G30.9; F02.80 BPH (benign prostatic hyperplasia) N40.0 A-fib I48.91 Atrial fibrillation type: unspecified Parkinsonian features R29.818 (5) A-fib Atrial fibrillation type: unspecified Qualified Code(s): I48.91 - Unspecified atrial fibrillation
[2023-12-10 06:11] LABS: Hematocrit (blood only) 46.9 % (42.0-52.0); Hemoglobin 16.2 g/dl (14.0-18.0); Mean Corpuscular Hemoglobin 30.1 pg (25.0-34.0); Mean Corpuscular Hgb Conc 34.5 g/dL (32.0-36.0); Mean Corpuscular Volume 87.2 fL (80.0-100.0); Mean Platelet Volume 10.7 fL (9.4-12.4); Platelet Count 202 K/uL (130-400); RDW Coefficient of Variation 11.5 % (11.5-14.5); RDW Standard Deviation 36.9 fL (36.4-46.3); Red Blood Count 5.38 M/uL (4.70-6.10); White Blood Count 9.16 K/ul (4.8-10.8)
[2023-12-10 06:31] LABS: BUN Creatinine Ratio 25.3 (10-20); Calcium 8.8 mg/dl (8.6-10.3); Est GFR (African American) 96.5 ml/min; Est GFR (Non-African American) 83.2 ml/min; Potassium 4.1 mmol/L (3.5-5.1)
--- NOTE | 2023-12-10 13:00 | Hospitalist Progress Note ---
Date of Service December 10, 2023 Assessment & Plan (1) Unresponsive episode: Plan: Presented to the ED via EMS after patient had an acute episode of unresponsiveness where his eyes rolled to the back of his head and he would not interact with his -Etiology could be due to arrhythmias, on telemetry patient has been experiencing some pauses 1 to 2-second pauses Patient has been resumed on metoprolol because of rising heart rate off of metoprolol. Per ultrasound specialist, patient is not a candidate for pacemaker placement. Family agrees. While patient is currently alert, oriented to self (is his baseline), Labs are generally unremarkable thus far however, CT head is wnl, MRI brain did not show any evidence of acute pathology (2) General weakness: Plan: Patient is currently too weak to safely return home at this time as he would have to go up approximately 12 steps to get into the house Family explains that their goal is to obtain significantly more care so patient can continue to live at home Per PT, patient will need rehab placement (3) Alzheimer's dementia: Plan: -Possibly combination of Alzheimer's dementia and vascular dementia -Follows up with neurology outpatient Baseline is oriented to self only but typically active and agitated at times -Since the Alzheimer is worsening, patient's is now more open to placement for him Family is inclined towards considering palliative care at rehab. (4) BPH (benign prostatic hyperplasia): Plan: Hold finasteride for now as this was just started yesterday and possibly could be contributing to his hypotension earlier today Will continue home Flomax Will add scheduled bladder scans and as needed straight cath for now (5) A-fib: Plan: Currently in rate controlled A-fib Not on anticoagulation due to significantly high fall risk with his severe dementia Metoprolol was initially held but was later resumed because of rising heart rate. (6) Parkinsonian features: Plan: Patient has some parkinsonian features, like for more testing on patient diagnosed suspect he has some Parkinson's. Outpatient follow-up with neurology Plan wishes to take him home eventually however she is open to a short rehab stay in a SNF facility. regional transportation manager working on placement. SNF referrals on Sunday 12/10 to allow family time to visit facilities. Admission and Anticipated Discharge Date Admission Date: November 18, 2023 Subjective Patient has no new complaints. Review of Systems Review of Systems: Unreliable due to confusion and dementia Physical Exam Physical Exam: The patient is awake, confused HEENT--PERRL, EOMI, mucous membranes and oropharynx mildly dry Neck--supple. No JVD. No bruits. Thyroid normal, trachea midline, no adenopathy. Heart--normal S1 and S2. No murmurs, rubs or gallops. Lungs--clear bilaterally, no respiratory distress, no accessory muscle use. Abdomen--normal bowel sounds and soft. Extremities--no cyanosis or clubbing. No edema. Dermatologic--normal skin turgor, normal color, no abnormal lymph nodes, no rash. Neurologic--cranial nerves II through XII grossly intact. some rigididty Rheumatologic--normal range of motion. Psychiatric--normal affect. Results & Data Results & Data Vital Signs (Past 12 Hours) Vital Signs Temp Pulse Resp BP Pulse Ox O2 Del Method 12/10/23 04:44 98.2 F 80 18 135/94 96 Room Air PG Care Time/CCT Total # of Minutes Spent Total Time Spent with Patient: Total time spent is greater than 50% in coordination of care (as documented) at patient's floor/unit and/or counseling patient: Coding Level of Care Code 32547 SUB INP/OBS CARE 2/35MIN Diagnoses Unresponsive episode R40.4 General weakness R53.1 Severe Alzheimer's dementia with other behavioral disturbance, unspecified timing of dementia onset G30.9; F02.80 BPH (benign prostatic hyperplasia) N40.0 A-fib I48.91 Atrial fibrillation type: unspecified Parkinsonian features R29.818 Time Spent (min) 35 (5) A-fib Atrial fibrillation type: unspecified Qualified Code(s): I48.91 - Unspecified atrial fibrillation
--- NOTE | 2023-12-11 14:24 | Hospitalist Progress Note ---
Date of Service December 11, 2023 Assessment & Plan (1) Unresponsive episode: Plan: Presented to the ED via EMS after patient had an acute episode of unresponsiveness where his eyes rolled to the back of his head and he would not interact with his -Etiology could be due to arrhythmias, on telemetry patient has been experiencing some pauses 1 to 2-second pauses Patient has been resumed on metoprolol because of rising heart rate off of metoprolol. Per apartment maintenance worker, patient is not a candidate for pacemaker placement. Family agrees. While patient is currently alert, oriented to self (is his baseline), Labs are generally unremarkable thus far however, CT head is wnl, MRI brain did not show any evidence of acute pathology (2) General weakness: Plan: Patient is currently too weak to safely return home at this time as he would have to go up approximately 12 steps to get into the house Family explains that their goal is to obtain significantly more care so patient can continue to live at home Per PT, patient will need rehab placement (3) Alzheimer's dementia: Plan: -Possibly combination of Alzheimer's dementia and vascular dementia -Follows up with neurology outpatient Baseline is oriented to self only but typically active and agitated at times -Since the Alzheimer is worsening, patient's is now more open to placement for him Family is inclined towards considering palliative care at rehab. (4) BPH (benign prostatic hyperplasia): Plan: Hold finasteride for now, possibly could be contributing to his hypotension earlier today Will continue home Flomax (5) A-fib: Plan: Currently in rate controlled A-fib Not on anticoagulation due to significantly high fall risk with his severe dementia Metoprolol was initially held but was later resumed because of rising heart rate. (6) Parkinsonian features: Plan: Patient has some parkinsonian features, like for more testing on patient diagnosed suspect he has some Parkinson's. Outpatient follow-up with neurology Plan wishes to take him home eventually however she is open to a short rehab stay in a SNF facility. manager restaurant working on placement. Admission and Anticipated Discharge Date Admission Date: November 18, 2023 Subjective Patient has no new complaints. Review of Systems Review of Systems: Unreliable due to confusion and dementia Physical Exam Physical Exam: The patient is awake, confused HEENT--PERRL, EOMI, mucous membranes and oropharynx mildly dry Neck--supple. No JVD. No bruits. Thyroid normal, trachea midline, no adenopathy. Heart--normal S1 and S2. No murmurs, rubs or gallops. Lungs--clear bilaterally, no respiratory distress, no accessory muscle use. Abdomen--normal bowel sounds and soft. Extremities--no cyanosis or clubbing. No edema. Dermatologic--normal skin turgor, normal color, no abnormal lymph nodes, no rash. Neurologic--cranial nerves II through XII grossly intact. some rigididty Rheumatologic--normal range of motion. Psychiatric--normal affect. Results & Data Results & Data Vital Signs (Past 12 Hours) Vital Signs Temp Pulse Resp BP Pulse Ox O2 Del Method 12/11/23 07:25 97.2 F L 67 20 123/86 94 Room Air PG Care Time/CCT Total # of Minutes Spent Total Time Spent with Patient: Total time spent is greater than 50% in coordination of care (as documented) at patient's floor/unit and/or counseling patient: Coding Level of Care Code 20474 SUB INP/OBS CARE 2/35MIN Diagnoses Unresponsive episode R40.4 General weakness R53.1 Severe Alzheimer's dementia with other behavioral disturbance, unspecified timing of dementia onset G30.9; F02.80 BPH (benign prostatic hyperplasia) N40.0 A-fib I48.91 Atrial fibrillation type: unspecified Parkinsonian features R29.818 Time Spent (min) 35 (5) A-fib Atrial fibrillation type: unspecified Qualified Code(s): I48.91 - Unspecified atrial fibrillation
--- NOTE | 2023-12-12 12:11 | Hospitalist Progress Note ---
Date of Service December 12, 2023 Assessment & Plan (1) Unresponsive episode: Plan: Presented to the ED via EMS after patient had an acute episode of unresponsiveness where his eyes rolled to the back of his head and he would not interact with his -Etiology could be due to arrhythmias, on telemetry patient has been experiencing some pauses 1 to 2-second pauses Patient has been resumed on metoprolol because of rising heart rate off of metoprolol. Per bow making machine operator, patient is not a candidate for pacemaker placement. Family agrees. While patient is currently alert, oriented to self (is his baseline), Labs are generally unremarkable thus far however, CT head is wnl, MRI brain did not show any evidence of acute pathology (2) General weakness: Plan: Patient is currently too weak and deconditioned to safely return home at this time as he would have to go up approximately 12 steps to get into the house Family explains that their goal is to obtain significantly more care so patient can continue to live at home Per PT, patient will need rehab placement (3) Alzheimer's dementia: Plan: -Possibly combination of Alzheimer's dementia and vascular dementia -Follows up with neurology outpatient Baseline is oriented to self only but typically active and agitated at times -Since the Alzheimer is worsening, patient's is now more open to placement for him Family is inclined towards considering palliative care at rehab. (4) BPH (benign prostatic hyperplasia): Plan: Hold finasteride for now, possibly could be contributing to his hypotension earlier today Will continue home Flomax (5) A-fib: Plan: Currently in rate controlled A-fib Not on anticoagulation due to significantly high fall risk with his severe dementia Metoprolol was initially held but was later resumed because of rising heart rate. (6) Parkinsonian features: Plan: Patient has some parkinsonian features, like for more testing on patient diagnosed suspect he has some Parkinson's. Outpatient follow-up with neurology Plan wishes to take him home eventually however she is open to a short rehab stay in a SNF facility. talent program manager working on placement. Admission and Anticipated Discharge Date Admission Date: November 18, 2023 Subjective Patient has no new complaints. He is confused Review of Systems Review of Systems: Unreliable due to confusion and dementia Physical Exam Physical Exam: The patient is awake, confused HEENT--PERRL, EOMI, mucous membranes and oropharynx mildly dry Neck--supple. No JVD. No bruits. Thyroid normal, trachea midline, no adenopathy. Heart--normal S1 and S2. No murmurs, rubs or gallops. Lungs--clear bilaterally, no respiratory distress, no accessory muscle use. Abdomen--normal bowel sounds and soft. Extremities--no cyanosis or clubbing. No edema. Dermatologic--normal skin turgor, normal color, no abnormal lymph nodes, no rash. Neurologic--cranial nerves II through XII grossly intact. some rigididty Rheumatologic--normal range of motion. Psychiatric--normal affect. Results & Data Results & Data Vital Signs (Past 12 Hours) Vital Signs Temp Pulse Resp BP Pulse Ox O2 Del Method 12/12/23 07:33 97.7 F 52 L 18 107/65 96 Room Air PG Care Time/CCT Total # of Minutes Spent Total Time Spent with Patient: Total time spent is greater than 50% in coordination of care (as documented) at patient's floor/unit and/or counseling patient: Coding Level of Care Code 13534 SUB INP/OBS CARE 2/35MIN Diagnoses Unresponsive episode R40.4 General weakness R53.1 Severe Alzheimer's dementia with other behavioral disturbance, unspecified timing of dementia onset G30.9; F02.80 BPH (benign prostatic hyperplasia) N40.0 A-fib I48.91 Atrial fibrillation type: unspecified Parkinsonian features R29.818 Time Spent (min) 35 (5) A-fib Atrial fibrillation type: unspecified Qualified Code(s): I48.91 - Unspecified atrial fibrillation
--- NOTE | 2023-12-13 08:54 | Discharge Summary ---
Discharge Summary Date of Service December 14, 2023 Principal Dx & Hospital Course #1 = Principal Diagnosis (1) Unresponsive episode: Presented to the ED via EMS after patient had an acute episode of unresponsiveness where his eyes rolled to the back of his head and he would not interact with his -Etiology could be due to arrhythmias, ( history of Afib) on telemetry patient has been experiencing some pauses 1 to 2-second pauses Patient has been resumed on metoprolol because of rising heart rate off of metoprolol. Per line service supervisor, patient is not a candidate for pacemaker placement. Not candidate for anticoagulation for afib, Family agrees. While patient is currently alert, oriented to self (is his baseline), Labs are generally unremarkable CT head is wnl, MRI brain did not show any evidence of acute pathology (2) General weakness: Patient is currently too weak and deconditioned to safely return home at this time as he would have to go up approximately 12 steps to get into the house Family explains that their goal is to obtain significantly more care so patient can continue to live at home Per PT, patient will need rehab placement (3) Alzheimer's dementia: -Possibly combination of Alzheimer's dementia and vascular dementia Patient has some parkinsonian features, like for more testing on patient diagnosed suspect he has some Parkinson's. Outpatient follow-up with neurology -Follows up with neurology outpatient Baseline is oriented to self only but typically active and agitated at times -Since the Alzheimer is worsening, patient's is now more open to placement for him Family is inclined towards considering palliative care at rehab. (4) BPH (benign prostatic hyperplasia): Hold finasteride for now, possibly could be contributing to his hypotension earlier today Will continue home Flomax Plan wishes to take him home eventually however she is open to a short rehab stay in a SNF facility. manager wellness working on placement. Admission HPI Per Admitting Provider Rex is a 78-year-old male with past medical history significant for severe dementia, atrial fibrillation (not on anticoagulation due to significant fall risk), hypertension, Nonischemic cardiomyopathy, and prediabetes who presented to the [facility] ED on 11/18/2023 due to an episode of unresponsiveness witnessed by family. EMS reported the patient to be bradycardic on arrival with heart rate in the 30s to 40s but otherwise stable. He remained stable while in the ED with improving alertness but not back to his normal baseline. Labs including CBC, CMP Pro-Erlin, and TSH were unremarkable. High-sensitivity troponin was elevated at 20.5. CT of the head and brain without contrast and chest x-ray were read as negative for acute findings. EKG shows patient's known atrial fibrillation. We are asked to admit the patient for generalized weakness as he was still too weak for family to safely care for him at home as he will require going approximately 12 steps. Patient was sitting in bed and appears fatigued but no acute distress with his and daughters bedside, history is obtained from family. They confirm that he has a history of severe dementia. At baseline he is only oriented to self but is normally very active and agitated at times. They explained that normally he is up walking around the house and interacting with them. He woke up this a.m. in his normal state of health. His explains that he had his a.m. medications. He was sitting at the kitchen table eating lunch around 12:30 PM and his states that he had sudden onset of unresponsiveness where his eyes rolled to the back of his head and he would not respond to her. She was concerned that he possibly had passed but then noticed that he was moving his fingers and then would whisper responses to her. They do not believe he has had recent fever or chills, he has not complained of chest pain, shortness of breath, has not been coughing, no recent nausea/vomiting, no complaints of abdominal pain, or urinary symptoms, no recent diarrhea, lower extremity swelling, or recent trauma. He does have a long history of urinary retention due to BPH and was started on finasteride yesterday, 11/17/2023. While he is more alert than his initial episode around 1230, they confirmed that he is significantly far from his normal baseline of being alert and very active. They state at his normal baseline he would have tried to get out of bed and leave his ED room multiple times. At this current status his and family would need more time to make arrangements so that he could be safely cared for at home if this were to be his new baseline. They confirm that he is a DNR/DNI and his is his primary decision-maker. Please refer to Dr. Henriquez's attestation for any changes to the treatment plan Discharge Exam looks stable lungs clear anteriorly Discharge Plan Discharge Items Patient Disposition: Transfer [facility] Reason For Visit: UNRESPONSIVE EPISODE, WEAKNESS Discharge Diagnosis: weakness irregular heart beat, atrial fib dementia/parkinsons disease Prostate enlargement Activity: Per Instructions section Activity Comment: as per therapy eval Non-emergency contact: Primary Care Provider Call non-emergency contact if: your symptoms worsen Follow-up/Referrals: Marlene Blake CRNP [Primary Care Provider] - Diet: Regular Diet Texture: Easy to Chew Addtl Attending Provider Instructions: continue aspirin and plavix, metoprolol for heart rate control Pending Studies at Discharge: No Stand-Alone Forms: My [facility] Skilled Items Patient informed of condition?: Yes DNR: Yes Discharge Level of Care: Acute rehab Communicable Disease: No Discharge Prognosis: Stable Lines: None Urinary Catheter: No Medications and DC Order Prescriptions: Continued albuterol sulfate 2.5 mg /3 mL (0.083 %) solution for nebulization 2.5 mg inhalation QID PRN (Reason: shortness of breath or wheezing) Qty: 90 3RF clopidogrel [Plavix] 75 mg tablet 75 mg PO DAILY Qty: 30 11RF tamsulosin 0.4 mg capsule 0.4 mg PO DAILY Qty: 90 3RF finasteride 5 mg tablet 5 mg PO DAILY Qty: 90 3RF multivitamin Tablet 1 tab PO DAILY aspirin 81 mg Tablet,Delayed Release (Dr/Ec) 81 mg PO DAILY memantine 10 mg tablet 10 mg PO BID rivastigmine 9.5 mg/24 hour patch 24 hour 9.5 mg transdermal QAM lorazepam 1 mg tablet 1 mg PO HS metoprolol succinate 25 mg tablet extended release 24 hr 25 mg PO HS Discharge Orders: Discharge Order (Routine); Ordered 12/14/23 Ordered By: Bobby Alfaro Admission Data Admit Date/Time: 11/18/23 16:34 Attending Provider: Bobby Alfaro Admit Provider: Joselito Henriquez Primary Care Provider: Marlene Blake Other Providers: [place]; [facility]; [facility] [place]; [place]; Joselito Henriquez; Omar Umaña; [facility] Other Interventions: Discharge Summary Assessment (RN) Last Done: 12/14/23 10:18 Hospital Stay Data Consultations 11/18/23 16:15 ED Decision to Admit Stat 11/28/23 13:12 Consult Cardiology Routine Diagnostic Imagining Performed 11/18/23 14:10 CT head/brain wo con Stat 11/19/23 09:10 MR brain wo con Routine Pending Results Patient Have Any Pending Studies at Discharge: No Discharge Instructions Given to Patient (Per Discharging Provider) continue aspirin and plavix, metoprolol for heart rate control Total Time Total Time Spent Total Time Spent (In Minutes): It required greater than 30 minutes to prepare this patient for discharge. Coding Level of Care Code 30495 INP/OBS DISCH >30 MIN Diagnoses Unresponsive episode R40.4 General weakness R53.1 Severe Alzheimer's dementia with other behavioral disturbance, unspecified timing of dementia onset G30.9; F02.80 BPH (benign prostatic hyperplasia) N40.0
[2023-12-13 10:55] LABS: Hematocrit (blood only) 46.8 % (42.0-52.0); Hemoglobin 15.7 g/dl (14.0-18.0); Mean Corpuscular Hemoglobin 30.1 pg (25.0-34.0); Mean Corpuscular Hgb Conc 33.5 g/dL (32.0-36.0); Mean Corpuscular Volume 89.7 fL (80.0-100.0); Mean Platelet Volume 10.8 fL (9.4-12.4); Platelet Count 200 K/uL (130-400); RDW Coefficient of Variation 11.6 % (11.5-14.5); RDW Standard Deviation 37.8 fL (36.4-46.3); Red Blood Count 5.22 M/uL (4.70-6.10); White Blood Count 7.36 K/ul (4.8-10.8)
[2023-12-13 11:04] LABS: BUN Creatinine Ratio 20.2 (10-20); Creatinine Clr Calc Pharmacy 62.3 ml/min; Est GFR (African American) 75.5 ml/min; Est GFR (Non-African American) 65.1 ml/min; Potassium 3.9 mmol/L (3.5-5.1)
--- NOTE | 2023-12-13 18:00 | Hospitalist Progress Note ---
Date of Service December 13, 2023 Assessment & Plan (1) Unresponsive episode: Plan: Presented to the ED via EMS after patient had an acute episode of unresponsiveness where his eyes rolled to the back of his head and he would not interact with his -Etiology could be due to arrhythmias, ( history of Afib) on telemetry patient has been experiencing some pauses 1 to 2-second pauses Patient has been resumed on metoprolol because of rising heart rate off of m etoprolol. Per heavy equipment sales manager, patient is not a candidate for pacemaker placement. Not candidate for anticoagulation for afib, Family agrees. While patient is currently alert, oriented to self (is his baseline), Labs are generally unremarkable CT head is wnl, MRI brain did not show any evidence of acute pathology (2) General weakness: Plan: Patient is currently too weak and deconditioned to safely return home at this time as he would have to go up approximately 12 steps to get into the house Family explains that their goal is to obtain significantly more care so patient can continue to live at home Per PT, patient will need rehab placement (3) Alzheimer's dementia: Plan: -Possibly combination of Alzheimer's dementia and vascular dementia Patient has some parkinsonian features, like for more testing on patient diagnosed suspect he has some Parkinson's. Outpatient follow-up with neurology -Follows up with neurology outpatient Baseline is oriented to self only but typically active and agitated at times -Since the Alzheimer is worsening, patient's is now more open to placement for him Family is inclined towards considering palliative care at rehab. (4) BPH (benign prostatic hyperplasia): Plan: Hold finasteride for now, possibly could be contributing to his hypotension earlier today Will continue home Flomax Plan wishes to take him home eventually however she is open to a short rehab stay in a SNF facility. front end manager working on placement. Admission and Anticipated Discharge Date Admission Date: November 18, 2023 Subjective Patient has no new complaints. He is confused and cannot answer questions or respond is at bedside and hopeful of impending transfer Physical Exam Physical Exam: looks stable lungs clear anteriorly Results & Data Results & Data Vital Signs (Past 12 Hours) Vital Signs Temp Pulse Resp BP BP Pulse Ox O2 Del Method 12/13/23 15:23 98.2 F 70 16 96/65 L 95 Room Air 12/13/23 10:33 18 100/67 111/71 96 12/13/23 08:00 Room Air 12/13/23 07:57 97.2 F L 59 L 18 111/71 96 Room Air Laboratory Results review cbc review chemistry PG Care Time/CCT Total # of Minutes Spent Total Time Spent with Patient: Total time spent is greater than 50% in coordination of care (as documented) at patient's floor/unit and/or counseling patient: Coding Level of Care Code 63378 SUB INP/OBS CARE 1/25MIN Diagnoses Unresponsive episode R40.4 General weakness R53.1 Severe Alzheimer's dementia with other behavioral disturbance, unspecified timing of dementia onset G30.9; F02.80 BPH (benign prostatic hyperplasia) N40.0
[2023-12-14 07:55] VITALS: PULSE 63; RESP 16; TEMP 97.9; O2SAT 95
[2023-12-14 10:18] VITALS: BP 96/65
== END 2023-12-14 14:03 | DRG 309 ==
LOC: ED 13:56 → SUATTDRO 16:34 → EDINP 16:34 → 2W 11-19 15:00 → 3N 12-10 17:20
DX: F02.C18 Dementia in other diseases classified elsewhere, severe, with other behavioral disturbance; N40.1 Benign prostatic hyperplasia with lower urinary tract symptoms; I49.9 Cardiac arrhythmia, unspecified; I50.22 Chronic systolic (congestive) heart failure; I11.0 Hypertensive heart disease with heart failure; R33.9 Retention of urine, unspecified; I44.7 Left bundle-branch block, unspecified; F01.50 Vascular dementia, unspecified severity, without behavioral disturbance, psychotic disturbance, mood disturbance, and anxiety; R41.89 Other symptoms and signs involving cognitive functions and awareness; G30.9 Alzheimer's disease, unspecified; G20.C Parkinsonism, unspecified; R55 Syncope and collapse; Z66 Do not resuscitate; F01.C2 Vascular dementia, severe, with psychotic disturbance; Z79.82 Long term (current) use of aspirin; I42.8 Other cardiomyopathies; Z88.8 Allergy status to other drugs, medicaments and biological substances; R73.03 Prediabetes